=== PATIENT | female | born 1975 | race Caucasian/White ===

== ENCOUNTER 2017-04-08 08:40 | Emergency (ER) | payer OTHER ==
[~2017-04-08] VITALS: Ht 152.4 cm; Wt 65.3 kg
[~2017-04-08 08:40] MED LIST: /AUGM875TA OR; /LINE60TA PO; ACET500C; ALDARA; ANTIBIOTIC; ATIV0.5T OR; ATIV0.5T3 PO; AUGM875T27 PO; BACT800T OR; BUDE150T PO; BUPR50TA PO; CELE20TA; CELE40TA PO; CIPR500T19; CIPR500T4; CITA40TA PO; CRES40TA PO; CRES5TAB; FERR325T3 PO; FLUC10TA; GLUC1000; IBUP80TA PO; INSULANT; INSULIN PUMP; INSULIN PUMP SQ; NOVOLOG100 MG/ML; OSEL75CA PO; PERC5TAB8 OR; PERCOCET PO; SYNT100T PO; SYNT125T; SYNT125T PO; TYLE325T5 PO; VIT250TA PO
[2017-04-08] MEDS ORDERED: NORCO, ANEXSIA 5/325MG TABLET (HYDROcodone/ACETAMINOPHEN) PO ONE (10:00)
[2017-04-08] MEDS ORDERED: ADACEL/BOOSTRIX VACCINE (DIPHTH/PERTUSS/ACELL/TETANUS)0.5ML SYR (90715) IM ONE (10:00)
--- NOTE | 2017-04-08 10:09 | REP ---
CT Head without contrast HISTORY: Trauma COMPARISON: None There is no intraparenchymal hemorrhage, acute infarct, mass or midline shift. The ventricular system is normal in appearance. There is no extra cerebral collection. There is no fracture. The visualized sinuses are clear. IMPRESSION: There is no intracranial lesion. Signed by Ruy Ray MD 04/08/2017 10:00 A
[2017-04-08] MEDS ORDERED: REGL10TA6 PO (10:40)
[2017-04-08] MEDS ORDERED: NORCOTAB PO (10:44)
[2017-04-08 10:59] VITALS: BP 138/82
== END 2017-04-08 11:02 | disposition home or self-care (01) ==
LOC: M ED 09:52
DX: S00.83XA Contusion of other part of head, initial encounter (principal); S06.0X0A Concussion without loss of consciousness, initial encounter; W19.XXXA Unspecified fall, initial encounter; Y92.89 Other specified places as the place of occurrence of the external cause; Y93.89 Activity, other specified; Y99.8 Other external cause status; E11.649 Type 2 diabetes mellitus with hypoglycemia without coma; Z79.899 Other long term (current) drug therapy; Z79.4 Long term (current) use of insulin

== ENCOUNTER 2017-04-30 11:00 | Inpatient (IN) | payer OTHER ==
[~2017-04-30] VITALS: Ht 152.4 cm; Wt 70.2 kg
[~2017-04-30 11:00] MED LIST changes: +NORCOTAB PO; +REGL10TA6 PO
[2017-04-30] MEDS ORDERED: NS 1,000 ML IV ONE (12:30)
[2017-04-30] MEDS: NS 1,000 ML IV SCH ×2 (13:00→19:25)
[2017-04-30] MEDS ORDERED: NAPROXEN 250 MG TAB PO ONE (13:15)
[2017-04-30] MEDS ORDERED: MORPHINE 2 MG/ML 1ML SYRINGE IV ONE (13:15)
[2017-04-30 14:12] LABS: VENOUS BASE EXCESS -26.6 (-2.0-2.0); VENOUS O2 SATURATION 97.8 % (60.0-80.0); VENOUS PARTIAL PRESSURE CO2 21.6 mmHg (38.0-50.0); VENOUS PARTIAL PRESSURE O2 223.5 mmHg (30.0-50.0); VENOUS STANDARD HCO3 6.9 MEQ/L; VENOUS TOTAL CO2 5.2 MEQ/L (24.0-28.0)
[2017-04-30 14:33] LABS: BASO # 0.1 K/mm3 (0.0-0.2); BASO % 0.3 % (0.0-1.0); EOS % 0.1 % (0.0-3.0); LARGE UNSTAINED CELL # 0.2 K/mm3 (0.0-0.4); LARGE UNSTAINED CELL % 0.8 % (0.0-4.0); LYMPH # 0.9 K/mm3 (1.5-4.5); LYMPH % 3.8 % (24.0-44.0); MEAN CORPUSCULAR HEMOGLOBIN 32.2 pg (27.0-33.0); MEAN CORPUSCULAR HGB CONC 31.8 g/dl (32.0-36.5); MEAN CORPUSCULAR VOLUME 101.5 fl (80.0-96.0); MONO # 0.9 K/mm3 (0.0-0.8); MONO % 4.1 % (0.0-5.0); NEUTROPHILS # 20.9 K/mm3 (1.8-7.7); PLATELET COUNT, AUTOMATED 522 k/mm3 (150-450); RED CELL DISTRIBUTION WIDTH 13.4 % (11.5-14.5)
[2017-04-30 14:57] LABS: ALBUMIN 4.6 GM/DL (3.2-5.2); ALBUMIN/GLOBULIN RATIO 1.24 (1.00-1.93); ALKALINE PHOSPHATASE 144 U/L (45-117); ALT/SGPT 36 U/L (12-78); ANION GAP 26 MEQ/L (8-16); AST/SGOT 28 U/L (15-37); BILIRUBIN,DIRECT 0.1 MG/DL (0.0-0.2); BILIRUBIN,TOTAL 0.5 MG/DL (0.2-1.0); BLOOD UREA NITROGEN 20 MG/DL (7-18); CALCIUM LEVEL 9.1 MG/DL (8.5-10.1); CARBON DIOXIDE LEVEL 5 MEQ/L (21-32); CHLORIDE LEVEL 99 MEQ/L (98-107); CREATININE FOR GFR 1.06 MG/DL (0.55-1.02); GLOMERULAR FILTRATION RATE > 60.0 (>58); SODIUM LEVEL 130 MEQ/L (136-145); TOTAL PROTEIN 8.3 GM/DL (6.4-8.2)
[2017-04-30] MEDS ORDERED: SODIUM CHLORIDE 0.9% 1000 ML IV ONE ×2 (15:00→17:00)
[2017-04-30 15:09] LABS: GLUCOSE, FASTING 465 MG/DL (70-105)
[2017-04-30 15:10] LABS: POTASSIUM SERUM 6.2 MEQ/L (3.5-5.1)
[2017-04-30] MEDS ORDERED: HumaLOG INSULIN (NovoLOG) PER UNIT SC STA (15:10)
[2017-04-30 15:40] LABS: VENOUS BASE EXCESS -27.7 (-2.0-2.0); VENOUS O2 SATURATION 91.3 % (60.0-80.0); VENOUS PARTIAL PRESSURE CO2 16.6 mmHg (38.0-50.0); VENOUS PARTIAL PRESSURE O2 83.8 mmHg (30.0-50.0); VENOUS STANDARD HCO3 5.2 MEQ/L; VENOUS TOTAL CO2 3.8 MEQ/L (24.0-28.0)
[2017-04-30] MEDS ORDERED: LEVO125T4 PO (15:51)
[2017-04-30] MEDS ORDERED: BUPR150T3 PO (15:51)
[2017-04-30] MEDS ORDERED: VENL75CA2 PO (15:51)
[2017-04-30] MEDS ORDERED: TYLE325T5 PO (15:51)
[2017-04-30] MEDS ORDERED: IBUP80TA PO (15:53)
[2017-04-30] MEDS ORDERED: INSUHUMDS SC (15:54)
[2017-04-30] MEDS ORDERED: BUPR300T34 PO (15:58)
[2017-04-30] MEDS ORDERED: PATIENT COMMENT (15:59)
[2017-04-30] MEDS ORDERED: INSULIN HUMAN REGULAR 100 UNITS in NS 99 ML IV SCH ×2 (16:00→18:18)
[2017-04-30] MEDS ORDERED: INSULIN IV RATE CHANGE DOCUMENTATION ML/HR XX SCH (16:00)
[2017-04-30] MEDS ORDERED: BISACODYL 5 MG TAB PO PRN (16:15)
[2017-04-30] MEDS ORDERED: CALCIUM GLUCONATE 1,000 MG in D5W MINI-BAG PLUS 100 ML IV ONE (16:15)
[2017-04-30] MEDS ORDERED: ONDANSETRON 4MG/2ML VIAL (J2405) IV PRN (16:15)
[2017-04-30 16:53] LABS: BLOOD UREA NITROGEN 16 MG/DL (7-18); CARBON DIOXIDE LEVEL 5 MEQ/L (21-32); CHLORIDE LEVEL 115 MEQ/L (98-107); CREATININE FOR GFR 0.67 MG/DL (0.55-1.02); GLOMERULAR FILTRATION RATE > 60.0 (>58); GLUCOSE, FASTING 353 MG/DL (70-105)
[2017-04-30 17:03] LABS: ANION GAP 19 MEQ/L (8-16)
[2017-04-30 17:05] LABS: POTASSIUM SERUM 4.2 MEQ/L (3.5-5.1); SODIUM LEVEL 139 MEQ/L (136-145)
[2017-04-30 17:07] LABS: CALCIUM LEVEL 5.6 MG/DL (8.5-10.1)
[2017-04-30 17:18] LABS: MAGNESIUM LEVEL 1.5 MG/DL (1.8-2.4)
[2017-04-30] MEDS ORDERED: MAG SULF 1GM/100ML (MAG RUN) 1 GM in APPROPRIATE DILUENT 1 EA IV ONE (18:00)
[2017-04-30] MEDS: INSULIN IV RATE CHANGE DOCUMENTATION ML/HR XX SCH ×5 (19:00→23:01)
[2017-04-30 19:12] VITALS: BP 125/68
[2017-04-30 20:00] VITALS: BP 132/72
[2017-04-30 21:29] LABS: ANION GAP 17 MEQ/L (8-16); BLOOD UREA NITROGEN 19 MG/DL (7-18); CALCIUM LEVEL 8.1 MG/DL (8.5-10.1); CARBON DIOXIDE LEVEL 9 MEQ/L (21-32); CHLORIDE LEVEL 112 MEQ/L (98-107); CREATININE FOR GFR 0.89 MG/DL (0.55-1.02); GLOMERULAR FILTRATION RATE > 60.0 (>58); GLUCOSE, FASTING 181 MG/DL (70-105); POTASSIUM SERUM 4.7 MEQ/L (3.5-5.1); SODIUM LEVEL 138 MEQ/L (136-145)
--- NOTE | 2017-04-30 21:35 | HPE ---
DATE OF ADMISSION: 04/30/2017 PRIMARY CARE PHYSICIAN: Dr. Weems CHIEF COMPLAINT: Diabetic ketoacidosis (DKA). HISTORY OF PRESENT ILLNESS: Ms. Kirkpatrick is a 41-year-old with multiple past medical history who presented to emergency room (ER) due to experiencing elevated glucose level. Patient expressed that yesterday at work she checked her glucose level, and it was above 600. Patient expressed that she was feeling tired yesterday and day before. She is on insulin pump, and she found out that her insulin pump is not properly connected. She is estimating that it was for the past 2 days, and she did not receive any insulin for the past 2 days due to insulin pump not being appropriately connected. Patient denies fevers, chills, or night sweats; however, patient expressed that last night when she went home, she was very thirsty, and she drank a large amount of water. Also patient has increased urination since last night. According to the boyfriend, for last night's dinner the patient had a [employer] burger with crystalline fluid. Patient's boyfriend expressed that this morning he went to see his doctor; however, when he came back he noticed that patient was confused and hallucinating. Patient's daughter also was visiting patient this morning and had noticed that patient was more confused. Patient also, when she woke up after shower, she noticed breast tenderness, mostly on the nipples bilaterally. Patient has a history of mastitis on the left breast with methicillin-resistant Staphylococcus aureus (MRSA) in 2011, who was treated medically. Patient denies sick contact. Patient denies acute vision or hearing changes; however, patient has headache this morning when she woke up. Patient denies history of syncope or seizure-type activities. Patient denies palpitations, racing or skipping heartbeat. Patient also denies abdominal pain, diarrhea, or constipation. Patient expressed she had a urinary fungal infection multiple times. ALLERGIES: No known drug allergies. HOME MEDICATIONS: - Tylenol 650 mg by mouth every 4 hour as needed pain - bupropion 300 mg by mouth daily - ibuprofen 800 mg by mouth every 8 hours as needed pain - insulin pump with Humalog - Synthroid 125 mcg by mouth daily - venlafaxine HCL ER 75 mg by mouth daily PAST MEDICAL HISTORY: 1. Mastitis of the left breast with MRSA. 2. Iron deficiency. 3. Diabetes mellitus type 1. 4. Hypothyroidism. 5. Multiple urinary fungal infections. PAST SURGICAL HISTORY: 1. Gastric bypass. 2. Hysterectomy in 1996. 3. section. 4. Dilatation and curettage. FAMILY HISTORY: At this time patient lives with her boyfriend. Patient has three children. Two of her children have autism. Patient denies history of smoking or using tobacco or illicit drug use. Patient drinks alcohol occasionally. Patient has not traveled outside of the [place]. Patient has two cats, one dog, and one rabbit. FAMILY HISTORY: Patient has one brother who is healthy. Patient's father had heart disease and has a stent at age 64. Patient's mother has type 2 diabetes. REVIEW OF SYSTEMS: GENERAL: Patient denies fever; however, patient feels warm. Patient denies chills or night sweats. Patient denies acute weight loss or weight gain. HEENT: Patient has headache and lightheadedness; however, patient denies acute vision or hearing changes. Patient also denies problem with chewing food or sinusitis. NECK: Patient denies lumps, bumps, or decreased range of motion of her neck. HEART: Patient denies palpitations, racing or skipping heartbeat, chest pain. LUNGS: Patient denies shortness of breath, coughing, or wheezing. ABDOMEN: Patient denies abdominal pain, nausea, vomiting, diarrhea, constipation , melena, hematochezia, or hemoptysis. CHEST: Patient expressed that she has been having breast tenderness, mostly nipple area bilaterally since this morning after patient took a shower. NEUROLOGIC: Patient denies history of transient ischemic attacks (TIAs), severe seizure-type activities. PHYSICAL EXAMINATION: Temperature 98.8, pulse 112, respiratory rate 18, blood pressure 120/59, pulse oximetry 100 on room air. GENERAL APPEARANCE: Patient was lying in bed in no acute distress. Patient was awake, alert, and oriented to time, place, and person. Patient was sleepy. HEENT: Normocephalic, atraumatic. Pupils were equal and reactive to light. Oral mucosa is moist. NECK: Soft, supple. No lymphadenopathy. No thyromegaly. No jugular venous distention (JVD). HEART: Regular rate and rhythm. Normal S1, S2. ABDOMEN: Soft, nontender. Positive bowel sounds in all quadrants. LUNGS: Clear breath sounds bilaterally. Good air movement. BREASTS: Patient has tenderness to palpation of the nipples bilaterally; however , patient does not have tenderness to palpation of the breast tissue bilaterally. EXTREMITIES: No lower extremity edema. +2 pulses in both lower extremities. Feet are warm. Normal range of motion, both upper and lower extremities. LABORATORY DATA: White blood cells 23, red blood cells 4.56, hemoglobin 14.8, hematocrit 46.6, MCV 101.5, MCH 32.2, MCHC 31.8, RDW 13.4, platelet count 522, neutrophil percentage 91, lymphocyte percentage 3.8, monocyte percentage 4.1, eosinophil percentage 4.1, basophil percentage 0.3, leukocyte percentage 0.8. VBG bicarbonate standard is 6.9, VBG pH 6.941, VBG pCO2 of 21.6, VBG pO2 of 223.5, VBG hCO3 of 4.5, VBG total CO2 of 5.2, VBG oxygen saturation 97.8, VBG base excess -26.6. Sodium 130, potassium 6.2, chloride 99, carbon dioxide 5, anion gap 26, BUN 20, creatinine 1.06, glomerular filtration rate more than 60, fasting glucose 465, estimate mean plasma glucose 240, hemoglobin A1c 10, calcium 9.1, magnesium 1.5. Total bilirubin 0.5, direct bilirubin 0.1, AST 28, ALT 36, alkaline phosphatase 144, total protein 8.3, albumin 4.6. UA: Urine color yellow. Urine appearance hazy. Urine pH 5, urine specific gravity 1.021, urine protein 2+, urine glucose 3+, urine ketone 2+, urine blood 2+, urine nitrite negative, urine bilirubin negative, urine urobilinogen 0.2, urine leukocyte esterase trace, urine white blood cells 3, urine red blood cells 2, urine hyalin casts 0, urine bacterial 1+, urine squamous epithelial cells 2. H-hydroxybutyrate more than 46. Blood culture is pending. ASSESSMENT AND PLAN: 1. Diabetic ketoacidosis (DKA). At this time patient is started on insulin drip with the normal saline. Also patient has received 2-liter bolus normal saline. Patient is nothing by mouth. We will check the basic metabolic panel every 4 hours. Also we have ordered blood culture. Urinalysis (UA) raised the possibility for urinary tract infection (UTI); therefore, I have ordered urine culture. Result is pending at this time. EKG indicated sinus tachycardia; however, no new pathology was noticed. Also we will continue monitoring fingersticks every 1 hour. 2. Hyperkalemia. This is possibly secondary to DKA. Patient has been started on insulin, and EKG did not show any new pathology indicative of hyperkalemia; however, I administered 1 gram of IV calcium gluconate. 3. Breast tenderness bilaterally. This could be secondary to a skin infection; also she has a history of mastitis and methicillin-resistant Staphylococcus aureus (MRSA), I have started patient on Teflaro 400 mg IV every 12 hours. 4. Leukocytosis. This could be secondary to infection. We have ordered blood culture, which is pending at this time. Also urine culture is pending. Patient has been started on Teflaro. Patient has a history of MRSA; however, at this time patient is afebrile. 5. Elevated creatinine level. This is possibly due to stress secondary to dehydration secondary to DKA. No medication is required at this time. We will continue patient on IV fluid. 6. Elevated alkaline phosphatase. Since 2008, patient had the elevated alkaline phosphatase; however, no imaging was ordered; therefore, I have ordered gallbladder ultrasound, and the result is pending at this time. Patient has a normal level of AST and ALT. We will continue monitoring alkaline phosphatase level. Also, patient is asymptomatic and denies any abdominal pain. 7. Hypothyroidism. Patient is on Synthroid 125 mcg by mouth daily. 8. Hypomagnesemia. We have administered one magnesium run. 9. History of depression and anxiety. Patient is on Effexor XR as well as bupropion 300 mg by mouth daily. 10. DVT prophylaxis. Patient is on Lovenox. My preceptor for this patient encounter was Dr. Georgia Acosta. The preceptor was physically present in the building during the encounter and was fully available as needed. All aspects of the patient interview, examination, medical decision making process, and medical care plan development were reviewed and approved by the preceptor. The preceptor is aware and concurs with the plan as stated in the body of this note and will attest to such by his/her co-signature. JAYDON
[2017-04-30 22:00] VITALS: BP 109/54
[2017-04-30] MEDS: D5W/0.45% SODIUM CHLORIDE 1,000 ML IV SCH (22:28)
[2017-04-30] MEDS: CEFTAROLINE FOSAMIL 400 MG in D5W MINI-BAG PLUS 50 ML IV SCH (22:54)
[2017-05-01] VITALS (9 sets, daily range): BP systolic 90–129; BP diastolic 54–83
[2017-05-01] MEDS: PERCOCET 5MG/325MG TAB PO PRN ×2 (00:16→07:53)
[2017-05-01 01:27] LABS: ANION GAP 16 MEQ/L (8-16); BLOOD UREA NITROGEN 17 MG/DL (7-18); CARBON DIOXIDE LEVEL 8 MEQ/L (21-32); CHLORIDE LEVEL 112 MEQ/L (98-107); CREATININE FOR GFR 0.92 MG/DL (0.55-1.02); GLOMERULAR FILTRATION RATE > 60.0 (>58); GLUCOSE, FASTING 231 MG/DL (70-105); POTASSIUM SERUM 4.5 MEQ/L (3.5-5.1); SODIUM LEVEL 136 MEQ/L (136-145)
[2017-05-01] MEDS: D5W/0.45% SODIUM CHLORIDE 1,000 ML IV SCH (04:30)
[2017-05-01 04:55] LABS: BASO % 0.1 % (0.0-1.0); EOS # 0.1 K/mm3 (0.0-0.50); EOS % 0.9 % (0.0-3.0); LARGE UNSTAINED CELL # 0.1 K/mm3 (0.0-0.4); LYMPH # 1.5 K/mm3 (1.5-4.5); LYMPH % 11.6 % (24.0-44.0); MEAN CORPUSCULAR HGB CONC 33.4 g/dl (32.0-36.5); MONO # 0.6 K/mm3 (0.0-0.8); MONO % 5.2 % (0.0-5.0); NEUTROPHILS # 9.9 K/mm3 (1.8-7.7); NEUTROPHILS % 81.2 % (36.0-66.0); RED CELL DISTRIBUTION WIDTH 14.1 % (11.5-14.5); WHITE BLOOD COUNT 12.1 K/mm3 (4.0-10.0)
[2017-05-01 05:20] LABS: MEAN CORPUSCULAR VOLUME 95.6 fl (80.0-96.0)
[2017-05-01 05:21] LABS: ALBUMIN 3.3 GM/DL (3.2-5.2); ALBUMIN/GLOBULIN RATIO 1.03 (1.00-1.93); ALKALINE PHOSPHATASE 102 U/L (45-117); ALT/SGPT 26 U/L (12-78); ANION GAP 11 MEQ/L (8-16); AST/SGOT 10 U/L (15-37); BILIRUBIN,TOTAL 0.4 MG/DL (0.2-1.0); BLOOD UREA NITROGEN 15 MG/DL (7-18); CALCIUM LEVEL 7.9 MG/DL (8.5-10.1); CARBON DIOXIDE LEVEL 13 MEQ/L (21-32); CHLORIDE LEVEL 112 MEQ/L (98-107); CREATININE FOR GFR 0.87 MG/DL (0.55-1.02); GLOMERULAR FILTRATION RATE > 60.0 (>58); GLUCOSE, FASTING 216 MG/DL (70-105); PLATELET COUNT, AUTOMATED 292 k/mm3 (150-450); POTASSIUM SERUM 4.3 MEQ/L (3.5-5.1); SODIUM LEVEL 136 MEQ/L (136-145); TOTAL PROTEIN 6.5 GM/DL (6.4-8.2)
[2017-05-01] MEDS: LEVOTHYROXINE 125MCG TABLET (0.125MG) PO SCH (05:58)
[2017-05-01 06:52] LABS: PHOSPHORUS LEVEL 1.9 MG/DL (2.5-4.9)
--- NOTE | 2017-05-01 07:45 | REP ---
Clinical: Elevated liver function tests and intermittent abdominal pain. Technique: Harris scale ultrasound using curved array transducer. Findings: The liver and pancreas are normal in contour, size, and echogenicity without focal hepatic or pancreatic lesions identified. The gallbladder is normal without gallstones, wall thickening or pericholecystic fluid. No biliary ductal dilatation is appreciated, and the common bile duct measures 3.1 mm diameter. The right kidney is normal in reniform shape without hydronephrosis and measures 12.0 x 4.2 x 5.3 cm. No ascites. Visualized portions of the abdominal aorta normal. Impression: Normal right upper quadrant and gallbladder abdominal ultrasound. Signed by Rico Menon MD 05/01/2017 07:37 A
[2017-05-01] MEDS: VENLAFAXINE **XR** 75MG CAPSULE PO SCH (07:52)
[2017-05-01] MEDS: buPROPion **XL** TABLET 150MG (WELLBUTRIN XL) PO SCH (07:53)
[2017-05-01] MEDS: ENOXAPARIN 30 MG/0.3 ML SYR (J1650) SC SCH (07:54)
[2017-05-01] MEDS: CEFTAROLINE FOSAMIL 400 MG in D5W MINI-BAG PLUS 50 ML IV SCH ×2 (07:54→19:58)
[2017-05-01 09:20] LABS: ANION GAP 9 MEQ/L (8-16); BLOOD UREA NITROGEN 13 MG/DL (7-18); CALCIUM LEVEL 7.6 MG/DL (8.5-10.1); CARBON DIOXIDE LEVEL 16 MEQ/L (21-32); CHLORIDE LEVEL 112 MEQ/L (98-107); CREATININE FOR GFR 0.84 MG/DL (0.55-1.02); GLOMERULAR FILTRATION RATE > 60.0 (>58); GLUCOSE, FASTING 228 MG/DL (70-105); POTASSIUM SERUM 3.9 MEQ/L (3.5-5.1); SODIUM LEVEL 137 MEQ/L (136-145)
[2017-05-01] MEDS: LEVEMIR (INSULIN DETEMIR) 1 UNITS/0.01ML SC SCH (09:23)
[2017-05-01] MEDS ORDERED: GLUCAGON FOR INJ 1 MG VIAL (J1610) SC PRN (11:45)
[2017-05-01] MEDS ORDERED: DEXTROSE 50% 50 ML SYRINGE IV PRN (11:45)
[2017-05-01] MEDS ORDERED: GLUCOSE 4 GM CHEW TABLET PO PRN (11:45)
[2017-05-01] MEDS: HumaLOG INSULIN (NovoLOG) PER UNIT SC SCH ×2 (12:29→17:56)
--- NOTE | 2017-05-01 15:31 | IPN ---
DATE: 05/01/2017 SUBJECTIVE: Ms. Kirkpatrick is a 41-year-old female who was seen and examined at the bedside. Patient denies chest pain, orthopnea, or paroxysmal nocturnal dyspnea (PND). Patient also denies abdominal pain, racing or skipping heartbeat, nausea, vomiting. Patient also expressed that she was asymptomatic last night. Patient had multiple episodes of urination without hematuria or dysuria. Patient denies fevers, chills, or night sweats. OBJECTIVE: VITAL SIGNS: Temperature 98.8, pulse 96, respiratory rate 16, blood pressure 103/55, pulse oximetry 96% on room air. GENERAL APPEARANCE: Patient was lying in bed, in no acute distress. Patient was awake, alert, and oriented to time, place, and person. HEENT: Normocephalic, atraumatic. Pupils are equal and reactive to light. Oral mucosa is moist. NECK: Soft, supple. No lymphadenopathy. No thyromegaly. No jugular venous distention (JVD). HEART: Regular rate and rhythm, normal S1, S2. ABDOMEN: Soft, nontender. Positive bowel sounds in all quadrants. BREAST EXAM: No lumps or bumps were noticed, also no erythema or discharge was appreciated. Palpation of the nipples and the breast does not cause any tenderness or pain. EXTREMITIES: No lower extremity edema. +2 pulses in both lower extremities. ASSESSMENT AND PLAN: 1. Diabetic ketoacidosis (DKA). At this time, patient's anion gap is closed. At this time, I have started patient on Levemir 18 units daily. However, we will run the insulin drip for one more hour and then we will stop the insulin drip. Also, we have started patient on consistent carbohydrate diet. This morning, we have checked the cardiac markers which were negative, also lipase was negative. At this time, we will continue patient on sliding scale. Also, blood culture is pending at this time as well as urine culture. 2. Hyperkalemia. This was possibly secondary to diabetic ketoacidosis (DKA). However, at this time patient's potassium level is in normal range. 3. Breast tenderness bilaterally. At this time, patient is asymptomatic. We will continue patient on Teflaro 400 mg IV every 12 hours since patient has a history of methicillin-resistant Staphylococcus aureus (MRSA). I have ordered a mammogram bilaterally, however we will hold it at this time. 4. Leukocytosis. This was possibly secondary to infection. However, patient's white blood cells have decreased today. We will continue patient on Teflaro. Patient's urine culture and blood culture are pending at this time. 5. Elevated creatinine level. This is possibly secondary to dehydration, however patient's creatinine level is back to normal range. We will continue renal function. 6. Elevated alkaline phosphatase. Today patient's alkaline phosphatase came back to normal range. This could be secondary to stress. At this time, patient is stable. Also, I have performed a gallbladder ultrasound which was negative for any pathology. 7. Hypothyroidism. Will continue patient on Synthroid. 8. Hypomagnesemia. Patient received one magnesium run yesterday. At this time, patient's magnesium level is in normal range. 9. History of depression and anxiety. Will continue patient on Effexor as well as bupropion. 10. Deep venous thrombosis (DVT) prophylaxis. Patient is on Lovenox. My preceptor for this patient encounter was Dr. Nandini Hale. The preceptor was physically present in the building during the encounter and was fully available. As needed, all aspects of the patient interview, examination, medical decision making process, and medical care plan development were reviewed and approved by the preceptor. The preceptor is aware and concurs with the plan as stated in the body of this note and will attest to such by his cosignature.
[2017-05-01] MEDS ORDERED: ENTER DRUG NAME HERE (PATIENT'S OWN MED) SC STA (19:50)
[2017-05-01] MEDS: ACETAMINOPHEN TAB 650MG DOSE (2X325MG) PO PRN ×2 (19:58→23:54)
[2017-05-01] MEDS ORDERED: INSULIN PUMP (PATIENT'S OWN MED) SC SCH (20:00)
[2017-05-01] MEDS ORDERED: HumaLOG INSULIN (NovoLOG) PER UNIT SC SCH (21:00)
[2017-05-02 05:40] VITALS: BP 124/83
[2017-05-02] MEDS ORDERED: IBUPROFEN 200 MG TAB PO ONE (06:00)
[2017-05-02] MEDS: LEVOTHYROXINE 125MCG TABLET (0.125MG) PO SCH (06:07)
[2017-05-02 06:10] LABS: BASO % 0.5 % (0.0-1.0); EOS # 0.1 K/mm3 (0.0-0.50); EOS % 1.2 % (0.0-3.0); LARGE UNSTAINED CELL # 0.1 K/mm3 (0.0-0.4); LARGE UNSTAINED CELL % 2.6 % (0.0-4.0); LYMPH # 1.7 K/mm3 (1.5-4.5); LYMPH % 32.1 % (24.0-44.0); MEAN CORPUSCULAR HEMOGLOBIN 31.5 pg (27.0-33.0); MEAN CORPUSCULAR HGB CONC 34.2 g/dl (32.0-36.5); MEAN CORPUSCULAR VOLUME 92.1 fl (80.0-96.0); MONO # 0.3 K/mm3 (0.0-0.8); MONO % 6.5 % (0.0-5.0); NEUTROPHILS # 2.7 K/mm3 (1.8-7.7); NEUTROPHILS % 57.1 % (36.0-66.0); PLATELET COUNT, AUTOMATED 261 k/mm3 (150-450); WHITE BLOOD COUNT 4.8 K/mm3 (4.0-10.0)
--- NOTE | 2017-05-02 07:18 | ECGEPIP ---
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
[2017-05-02 07:20] LABS: ALBUMIN/GLOBULIN RATIO 0.94 (1.00-1.93); ALKALINE PHOSPHATASE 90 U/L (45-117); ALT/SGPT 21 U/L (12-78); ANION GAP 8 MEQ/L (8-16); AST/SGOT 8 U/L (15-37); BILIRUBIN,TOTAL 0.3 MG/DL (0.2-1.0); BLOOD UREA NITROGEN 11 MG/DL (7-18); CALCIUM LEVEL 8.6 MG/DL (8.5-10.1); CARBON DIOXIDE LEVEL 22 MEQ/L (21-32); CHLORIDE LEVEL 113 MEQ/L (98-107); CREATININE FOR GFR 0.54 MG/DL (0.55-1.02); GLOMERULAR FILTRATION RATE > 60.0 (>58); GLUCOSE, FASTING 130 MG/DL (70-105); MAGNESIUM LEVEL 2.3 MG/DL (1.8-2.4); POTASSIUM SERUM 3.5 MEQ/L (3.5-5.1); SODIUM LEVEL 143 MEQ/L (136-145); TOTAL PROTEIN 6.2 GM/DL (6.4-8.2)
[2017-05-02] MEDS: LEVEMIR (INSULIN DETEMIR) 1 UNITS/0.01ML SC SCH (08:28)
[2017-05-02] MEDS: CEFTAROLINE FOSAMIL 400 MG in D5W MINI-BAG PLUS 50 ML IV SCH (08:28)
[2017-05-02] MEDS: buPROPion **XL** TABLET 150MG (WELLBUTRIN XL) PO SCH (08:29)
[2017-05-02] MEDS: ENOXAPARIN 30 MG/0.3 ML SYR (J1650) SC SCH (08:29)
[2017-05-02] MEDS: VENLAFAXINE **XR** 75MG CAPSULE PO SCH (08:29)
[2017-05-02] MEDS ORDERED: EXCEDRIN MIGRAINE TABLET PO PRN (08:30)
--- NOTE | 2017-05-02 14:25 | DSES ---
DATE OF ADMISSION: 04/30/2017 DATE OF DISCHARGE: 05/02/2017 DISCHARGE DIAGNOSIS: Diabetic ketoacidosis. SECONDARY DIAGNOSES: Medication non-adherence. Hyperkalemia. Acute kidney injury. Hypothyroidism. Hypomagnesemia. Depression and anxiety. HOSPITAL COURSE: The patient is a 41-year-old female who is type 1 diabetic on insulin pump who stated over the last days, she felt her pump was not working correctly. It was kinked and that she was not receiving her insulin, although, she was not checking her blood sugar regularly. When she began to feel weak and not herself, she did check her blood sugars that were greater than 600 which prompted her to present to the emergency room. She was found to be in diabetic ketoacidosis (DKA) and was admitted to the medical intensive care unit where she was started on insulin drip as per the protocol. Her gap did close. She was weaned back to subcutaneous insulin and then subsequently back to her pump, which demonstrated good functional status. Her symptoms did completely resolve. It was thought that it was secondary to medication non-adherence with pump malfunctioning. Although she ws empirically started on antibiotics at the time of admission, her cultures remained negative and there was no evidence for acute infection. Her symptomatology did resolve completely At this time, she is medically deemed to be stable for discharge home. Subjectively, the patient reports she feels great. She wants to go home. She is eating her regular diet and has no complaints. OBJECTIVE: VITAL SIGNS: Temperature 98.4, pulse 87, respiratory rate 17, blood pressure 124/83, oxygen saturation 97% in room air. GENERAL: She is obese middle-aged female lying flat in bed in no distress. HEENT: Cranial nerves II through XII are grossly intact. She has moist mucous membranes. CARDIOVASCULAR: S1, S2 regular. RESPIRATORY: Clear. ABDOMEN: Obese, nontender, nondistended. EXTREMITIES: No clubbing, cyanosis or edema. LABORATORY STUDIES: WBC 4.8, hemoglobin 12.0, hematocrit 35, platelet count 262. Chemistry panel: Sodium 143, potassium 3.5, chloride 111, bicarbonate 22, BUN 11, creatinine 0.5. ASSESSMENT/PLAN: This is a 41-year-old female with resolved DKA secondary to medication non-adherence. PROBLEMS: 1. Diabetic ketoacidosis: Resolved secondary to medication non-adherence. I did advise her to check her blood sugar more regularly and then she would notice if her pump was not functioning correctly sooner and be able to change her site. I did encourage her to followup with the [facility] where she has been seen previously for her diabetes. Her hemoglobin A1c was elevated at 10 suggesting suboptimal control and also likely related to her poor compliance. 2. Acute kidney injury related to dehydration improved with rehydration,=. 3. Hypothyroidism: She was continued on Synthroid. 4. Hypomagnesemia, repleted. 5. History of depression and anxiety. She was continued on Effexor and bupropion. DISPOSITION: The patient is being discharged home to the care of her family. She is back at her functional baseline and independent with her nativities of daily living, (ADL). Clinical status is resolved. She is to followup with her primary care physician in 7 days and the [facility] as soon as possible. Her activities are prior to admission. Her diet is consistent carbohydrate. She is to return to the emergency room if her symptoms worsen. DISCHARGE MEDICATIONS: - Tylenol 650 mg every 4 hours as needed for pain - bupropion 300 mg daily - ibuprofen 800 mg every 8 hours as needed for pain - Lispro subcutaneously through her pump - levothyroxine 125 mcg daily - venlafaxine 75 mg daily Greater than 30 minutes spent organizing disposition.
== END 2017-05-02 13:10 | disposition home or self-care (01) | DRG 813 ==
LOC: M ED 11:00 → M ED INP 17:17 → M ICU 18:41 → M MSPAV 05-01 21:03
PROVIDERS: ADMIT Hospitalist; ATTEND Internal Medicine
DX: T85.694A Other mechanical complication of insulin pump, initial encounter (principal); E10.10 Type 1 diabetes mellitus with ketoacidosis without coma; E83.42 Hypomagnesemia; E87.5 Hyperkalemia; D50.9 Iron deficiency anemia, unspecified; E03.9 Hypothyroidism, unspecified; D72.829 Elevated white blood cell count, unspecified; E86.0 Dehydration; N64.4 Mastodynia; F32.9 Major depressive disorder, single episode, unspecified; E66.9 Obesity, unspecified; F41.9 Anxiety disorder, unspecified; Z79.4 Long term (current) use of insulin; Z79.899 Other long term (current) drug therapy; Z87.440 Personal history of urinary (tract) infections; Z86.14 Personal history of Methicillin resistant Staphylococcus aureus infection; Z98.84 Bariatric surgery status; Z91.14 Patient's other noncompliance with medication regimen; Z68.30 Body mass index [BMI] 30.0-30.9, adult; Y84.8 Other medical procedures as the cause of abnormal reaction of the patient, or of later complication, without mention of misadventure at the time of the procedure

== ENCOUNTER 2018-03-26 08:36 | Emergency (ER) | payer BC, OTHER | END 2018-03-26 09:54 | disposition home or self-care (01) | LOC: M ED 08:36 | DX: S20.212A Contusion of left front wall of thorax, initial encounter (principal); S20.222A Contusion of left back wall of thorax, initial encounter; W01.0XXA Fall on same level from slipping, tripping and stumbling without subsequent striking against object, initial encounter; Y92.099 Unspecified place in other non-institutional residence as the place of occurrence of the external cause; Y93.9 Activity, unspecified; Y99.9 Unspecified external cause status; E11.9 Type 2 diabetes mellitus without complications; I10 Essential (primary) hypertension; E03.9 Hypothyroidism, unspecified; Z98.84 Bariatric surgery status; F32.9 Major depressive disorder, single episode, unspecified; Z79.4 Long term (current) use of insulin; Z79.899 Other long term (current) drug therapy; Z91.040 Latex allergy status | CPT/HCPCS: 71101 ==

== ENCOUNTER → 2018-08-04 | Outpatient (REF) | payer BC ==
[2018-08-06 08:08] LABS: LDL DIRECT 85 mg/dL (0-99)
== END ==
LOC: M LAB REF 17:39
DX: Z98.84 Bariatric surgery status (principal)
CPT/HCPCS: 83721

== ENCOUNTER → 2018-09-23 | Outpatient (REF) | payer BC | LOC: M LAB REF 13:01 | DX: R30.0 Dysuria (principal) | CPT/HCPCS: 87086 ==

== ENCOUNTER 2018-12-18 17:25 | Inpatient (IN) | payer BC ==
[~2018-12-18] VITALS: Ht 152.4 cm; Wt 76.4 kg
[~2018-12-18 17:25] MED LIST changes: +BUPR150T3 PO; +BUPR300T34 PO; +INSUHUMDS SC; +LEVO125T4 PO; +PATIENT COMMENT; +VENL75CA2 PO
[2018-12-18] MEDS: MORPHINE 4 MG/ML 1ML VIAL/SYRINGE (J2270) IV PRN ×2 (18:04→18:51)
[2018-12-18 18:06] LABS: BASO % 0.4 % (0.0-1.0); EOS % 0.3 % (0.0-3.0); HEMATOCRIT 33.9 % (36.0-47.0); LYMPH # 1.6 10^3/uL (1.5-4.5); LYMPH % 20.3 % (24.0-44.0); MEAN CORPUSCULAR HEMOGLOBIN 28.7 pg (27.0-33.0); MEAN CORPUSCULAR HGB CONC 32.4 g/dl (32.0-36.5); MEAN CORPUSCULAR VOLUME 88.5 fl (80.0-96.0); MONO # 0.5 10^3/uL (0.0-0.8); MONO % 6.8 % (0.0-5.0); NEUTROPHILS # 5.7 10^3/uL (1.8-7.7); NEUTROPHILS % 71.8 % (36.0-66.0); PLATELET COUNT, AUTOMATED 361 10^3/uL (150-450); RED BLOOD COUNT 3.83 10^6/uL (4.00-5.40); WHITE BLOOD COUNT 7.9 10^3/uL (4.0-10.0)
[2018-12-18] MEDS ORDERED: ONDANSETRON 4MG/2ML VIAL (J2405) As Ordered ONE ×2 (18:14→22:47)
[2018-12-18] MEDS ORDERED: NS 1,000 ML IV SCH (18:15)
[2018-12-18] MEDS ORDERED: ONDANSETRON 4MG/2ML VIAL (J2405) IV ONE (18:15)
[2018-12-18 18:32] LABS: ALBUMIN 3.8 GM/DL (3.2-5.2); ALT/SGPT 34 U/L (12-78); BILIRUBIN,DIRECT 0.1 MG/DL (0.0-0.2); BILIRUBIN,TOTAL 0.3 MG/DL (0.2-1.0); BLOOD UREA NITROGEN 20 MG/DL (7-18); CALCIUM LEVEL 9.1 MG/DL (8.5-10.1); CARBON DIOXIDE LEVEL 22 MEQ/L (21-32); CHLORIDE LEVEL 104 MEQ/L (98-107); CPK CREATINE PHOSPHOKINASE 72 U/L (26-192); CREATININE FOR GFR 0.56 MG/DL (0.55-1.30); GLOMERULAR FILTRATION RATE > 60.0 (>58); GLUCOSE, FASTING 135 MG/DL (70-100); LIPASE 137 U/L (73-393); MB/CK RELATIVE INDEX 1.67 (< OR =4); POTASSIUM SERUM 3.7 MEQ/L (3.5-5.1); SODIUM LEVEL 137 MEQ/L (136-145); TOTAL PROTEIN 7.2 GM/DL (6.4-8.2); TROPONIN I < 0.02 NG/ML (< 0.10)
[2018-12-18] MEDS ORDERED: ISOVUE-370 76% 100ML VIAL (Q9967) As Ordered ONE (18:36)
--- NOTE | 2018-12-18 20:22 | REPVR ---
EXAM: CT Abdomen and Pelvis With Contrast EXAM DATE/TIME: 12/18/2018 6:14 PM CLINICAL HISTORY: 43 years old, female; Pain; Abdominal pain; Periumbilical TECHNIQUE: Axial computed tomography images of the abdomen and pelvis with intravenous contrast. All CT scans at this facility use at least one of these dose optimization techniques: automated exposure control; mA and/or kV adjustment per patient size (includes targeted exams where dose is matched to clinical indication); or iterative reconstruction. Coronal and sagittal reformatted images were created and reviewed. CONTRAST: 100 ml of isovue 370 administered intravenously. COMPARISON: GALLBLADDER US 04/30/2017 8:01 PM FINDINGS: Lower thorax: Clear appearing lungs bases. ABDOMEN: Liver: Normal appearing liver. Gallbladder and bile ducts: Normal appearing gallbladder. Normal common bile duct. Pancreas: Normal appearing pancreas. Spleen: Normal spleen. Adrenals: Normal adrenal glands. Kidneys and ureters: Normal appearing kidneys. Stomach and bowel: There is severe dilatation of multiple loops of small bowel mid and lower abdomen. There is a loop of small bowel distended to 4.4 CM with fecal like material within. There are multiple loops of small bowel with secretions and air-fluid levels. There is a transition from distended bowel to nondistended bowel at the umbilicus. The ileum is decompressed. The left colon is completely decompressed. Dilated loops of small bowel demonstrate some thickening of bowel wall this is very suspicious for small bowel obstruction, a closed loop obstruction. Numerous surgical clips are identified in the left upper quadrant from gastric bypass surgery. There is also edematous changes of small bowel at the massively distended loops in the abdomen. Appendix: The appendix cannot be visualized. PELVIS: Bladder: Normal appearing urinary bladder. Reproductive: 3 CM cyst of the left ovary. Normal appearing uterus. ABDOMEN and PELVIS: Intraperitoneal space: There is no evidence of pneumoperitoneum. Bones/joints: There is severe narrowing of the L5-S1 disc space with moderate posterior osteophyte formation. Soft tissues: Unremarkable. Vasculature: There is opacification of the aorta. There is opacification of the SMA. Lymph nodes: Normal. No enlarged lymph nodes. IMPRESSION: Massive distention of multiple loops of small bowel in the mid and lower abdomen. Distention of small bowel to 4.4 CM with fecal like material. Secretions and air fluid level in distended small bowel in all areas suspicious for small bowel obstruction. Probable closed loop obstruction with the transition near the umbilicus. Electronically signed by: Jonah Mclain On 12/18/2018 20:22:18 PM
[2018-12-18] MEDS ORDERED: MORPHINE 4 MG/ML 1ML VIAL/SYRINGE (J2270) As Ordered ONE (20:27)
[2018-12-18] MEDS ORDERED: MORPHINE 4 MG/ML 1ML VIAL/SYRINGE (J2270) IV ONE (20:45)
[2018-12-18] MEDS ORDERED: ONDANSETRON 4MG/2ML VIAL (J2405) IV PRN ×2 (20:45→22:15)
[2018-12-18] MEDS ORDERED: MORPHINE 4 MG/ML 1ML VIAL/SYRINGE (J2270) IV PRN (20:45)
[2018-12-18] MEDS ORDERED: cefoTEtan DISODIUM 2 GM in D5W MINI-BAG PLUS 50 ML IV ONE (22:15)
[2018-12-18] MEDS ORDERED: METOCLOPRAMIDE INJ 10MG/2ML VIAL (J2765) IV PRN (22:15)
[2018-12-18] MEDS ORDERED: BUPIVACAINE HCL 0.25% 30 ML VIAL As Ordered ONE (22:27)
[2018-12-18] MEDS ORDERED: BUPIVACAINE/EPIN 0.25% 30 ML VIAL As Ordered ONE (22:27)
[2018-12-18] MEDS ORDERED: LIDOCAINE 2% INJ 100 MG/5 ML SDV (FOR ANES.) As Ordered ONE (22:47)
[2018-12-18] MEDS ORDERED: PROPOFOL 200 MG/20 ML VIAL As Ordered ONE (22:47)
[2018-12-18] MEDS ORDERED: dexameTHASONE 4 MG/ML 1ML VIAL (J1100) As Ordered ONE (22:47)
[2018-12-18] MEDS ORDERED: ROCURONIUM BROMIDE 50 MG/5 ML VIAL As Ordered ONE (22:47)
[2018-12-18] MEDS ORDERED: MIDAZOLAM INJ 5 MG/ML VIAL (J2250) As Ordered ONE (22:48)
[2018-12-18] MEDS ORDERED: fentaNYL 250 MCG/5 ML INJECTION (J3010) As Ordered ONE (22:48)
--- NOTE | 2018-12-18 23:01 | HPE ---
DATE OF ADMISSION: 12/18/2018 ADMISSION DIAGNOSIS: Small intestinal obstruction, possible closed loop obstruction. HISTORY OF PRESENT ILLNESS: The patient is a 43-year-old woman who presented to the emergency department at 5:25 in the evening of December 18, 2018 complaining of severe abdominal pain. The patient reports that she had some mild discomfort earlier in the day around lunchtime and had something to eat and shortly thereafter she developed severe mid abdominal pain. She developed some nausea and had some dry heaves. She is status post a laparoscopic Merry-en-Y gastric bypass back in August of 2015. On presentation to the emergency department, she was complaining of severe pain. This has persisted since admission. She underwent evaluation with some laboratory studies and then had a CT scan of the abdomen and pelvis. This shows a very prominent dilated loop of small bowel in the mid to lower abdomen, slightly more to the left, suggestive of a closed loop small bowel obstruction. Changes secondary to her gastric bypass were noted. I was consulted, and the patient is now being admitted for emergency surgery for her bowel obstruction. MEDICATIONS: Patient's normal medications include Wellbutrin XL 300 mg by mouth daily. She takes levothyroxine 125 mcg by mouth daily, and she is on an insulin pump with Humalog insulin. ALLERGIES: The patient's only reported allergy is to LATEX. SURGICAL HISTORY: The patient has had three sections. She has had a hysterectomy. She had her Merry-en-Y gastric bypass back in 2014. MEDICAL HISTORY: The patient has type 1 diabetes and is currently using an insulin pump. She has a history of hypertension and hypercholesterolemia, though she is not apparently on any medications for these at this time. She does have hypothyroidism. FAMILY HISTORY: Noncontributory. SOCIAL HISTORY: The patient is accompanied to the emergency department by significant other. She is a nonsmoker and reports a little alcohol intake. REVIEW OF SYSTEMS: The patient denies any chest pain or palpitations. She denies shortness of breath, cough or wheezing. She has no history of deep vein thrombosis (DVT) or pulmonary embolus. She denies any major bone or joint issues. Her endocrine issues are as noted. She has not complained of any chronic severe headaches, double visions, seizure or stroke. PHYSICAL EXAMINATION: Patient has previously been writhing on the stretcher and crying out. She has received some morphine in the emergency department. When I entered, she was lying on her right side and when she moved, seemed to be more uncomfortable. Skin is warm and dry. Sclerae are anicteric. I would say that her most recent vital signs show a pulse of 85, blood pressure of 145/85 and her room air oxygen saturation is 99%. Neck is supple without mass. Heart exam shows a regular rate and rhythm. The lungs are clear to auscultation. The abdomen is mildly obese. She has some scarring consistent with her prior surgery. She has a few bowel sounds in the upper abdomen and the lower abdomen is quieter. The abdomen is not particularly distended. The abdomen is soft throughout. She has some fairly mild direct tenderness in the mid abdomen beginning slightly above the umbilicus extending inferiorly into the suprapubic area. There is no tympany to percussion. Lower extremities: Show no edema and she has palpable dorsalis pedis pulses. She has palpable radial pulses bilaterally. Her laboratory studies from this evening show a white count of 8, hemoglobin of 11, hematocrit 34 and a platelet count of 361,000. Her differential count shows 72% neutrophils, 20% lymphocytes and 7% monocytes. Chemistry profile shows normal electrolytes with a BUN of 20, creatinine 0.56 and a glucose of 135. Her liver function tests are normal. Total protein is 7.2 and albumin of 3.8 and her lipase is 137. She had a troponin that was less than 0.02 and a CK-MB of 1 with a CK-MB relative index of 1.67. CT scan as noted in the history of present illness shows a single quite dilated fluid filled loop of small bowel in the mid abdomen, lower and slightly to the left the midline. She has postoperative changes from her prior surgery. IMPRESSION: Small intestinal obstruction secondary to adhesions or possible internal hernia. This may actually represent a closed loop obstruction as her pain does seem to be somewhat out of proportion to her findings. Other diagnoses include: - Type 1 diabetes mellitus. - Hypothyroidism. PLAN: The patient was counseled for urgent surgery. I have recommended laparoscopy with laparotomy as necessary to address her intestinal obstruction. Hopefully we can accomplish this laparoscopically. If necessary, a laparotomy will be performed. If the intestine is viable, then a lysis of adhesions may be all that is necessary, but it is possible that a bowel resection will be called for. She had an opportunity to ask questions. She will receive a dose of cefotetan preoperatively.
[2018-12-18] MEDS ORDERED: cefoTEtan INJ 2GM VIAL (S0074 PER 500MG) As Ordered ONE (23:31)
[2018-12-18] MEDS ORDERED: SUCCINYLCHOLINE 100 MG/5 ML SYRINGE (J0330) As Ordered ONE (23:47)
[2018-12-18] MEDS ORDERED: HYDROmorphone HCL 2 MG/ML 1ML VIAL (J1170) As Ordered ONE (23:48)
[2018-12-18] MEDS ORDERED: SUGAMMADEX SODIUM 500 MG/5 ML VIAL (BRIDION) As Ordered ONE (23:48)
[2018-12-19] VITALS (10 sets, daily range): BP systolic 110–142; BP diastolic 59–86
[2018-12-19] MEDS ORDERED: fentaNYL 100 MCG/2 ML INJECTION (J3010) IV PRN (01:00)
[2018-12-19] MEDS ORDERED: MEPERIDINE INJ 25 MG/ML VIAL (J2175) IV PRN (01:00)
[2018-12-19] MEDS ORDERED: MORPHINE 4 MG/ML 1ML VIAL/SYRINGE (J2270) IV PRN ×2 (01:00)
[2018-12-19] MEDS ORDERED: LR 1,000 ML IV SCH (01:00)
[2018-12-19] MEDS ORDERED: METOCLOPRAMIDE INJ 10MG/2ML VIAL (J2765) IV PRN (01:00)
[2018-12-19] MEDS ORDERED: PERCOCET 5MG/325MG TAB PO PRN (01:00)
[2018-12-19] MEDS ORDERED: ONDANSETRON 4MG/2ML VIAL (J2405) IV PRN (01:00)
[2018-12-19] MEDS ORDERED: NORCO, ANEXSIA 5/325MG TABLET (HYDROcodone/ACETAMINOPHEN) PO PRN (01:00)
[2018-12-19] MEDS: LR 1,000 ML IV SCH ×3 (01:20→14:01)
[2018-12-19] MEDS ORDERED: GLUCAGON FOR INJ 1 MG VIAL (J1610) SC PRN (02:45)
[2018-12-19] MEDS ORDERED: DEXTROSE 50% 50 ML SYRINGE IV PRN (02:45)
[2018-12-19] MEDS ORDERED: GLUCOSE 4 GM CHEW TABLET PO PRN (02:45)
[2018-12-19] MEDS ORDERED: PANTOPRAZOLE 40MG INJ (PROTONIX) (C9113) IV SCH (09:00)
[2018-12-19] MEDS: buPROPion **XL** TABLET 150MG (WELLBUTRIN XL) PO SCH (10:02)
[2018-12-19] MEDS: LEVOTHYROXINE 125MCG TABLET (0.125MG) PO SCH (10:03)
[2018-12-19 10:15] LABS: BASO % 0.1 % (0.0-1.0); HEMATOCRIT 32.8 % (36.0-47.0); HEMOGLOBIN 10.4 g/dl (12.0-15.5); LYMPH # 1.4 10^3/uL (1.5-4.5); LYMPH % 15.5 % (24.0-44.0); MEAN CORPUSCULAR HEMOGLOBIN 28.9 pg (27.0-33.0); MEAN CORPUSCULAR HGB CONC 31.7 g/dl (32.0-36.5); MEAN CORPUSCULAR VOLUME 91.1 fl (80.0-96.0); MONO # 0.5 10^3/uL (0.0-0.8); MONO % 5.8 % (0.0-5.0); NEUTROPHILS # 7.1 10^3/uL (1.8-7.7); NEUTROPHILS % 78.4 % (36.0-66.0); PLATELET COUNT, AUTOMATED 316 10^3/uL (150-450); WHITE BLOOD COUNT 9.1 10^3/uL (4.0-10.0)
[2018-12-19 10:30] LABS: ALT/SGPT 30 U/L (12-78); BILIRUBIN,TOTAL 0.3 MG/DL (0.2-1.0); BLOOD UREA NITROGEN 16 MG/DL (7-18); CALCIUM LEVEL 7.4 MG/DL (8.5-10.1); CARBON DIOXIDE LEVEL 24 MEQ/L (21-32); CHLORIDE LEVEL 107 MEQ/L (98-107); CREATININE FOR GFR 0.58 MG/DL (0.55-1.30); GLOMERULAR FILTRATION RATE > 60.0 (>58); GLUCOSE, FASTING 247 MG/DL (70-100); POTASSIUM SERUM 4.6 MEQ/L (3.5-5.1); SODIUM LEVEL 138 MEQ/L (136-145); TOTAL PROTEIN 5.9 GM/DL (6.4-8.2)
--- NOTE | 2018-12-19 13:04 | IPN ---
DATE OF SERVICE: 12/19/2018 HISTORY: The patient is now approximately 10-12 hours postoperative from a laparoscopic lysis of adhesions for a closed loop intestinal obstruction. She is doing very well and reports no significant discomfort at this time. His blood sugars have been fine, and she remains on her insulin pump. Vital sign show that she has been afebrile since surgery. Her pulse is in the 80s to low 90s. The blood pressure is good, and her room air oxygen (dictation cut off) She has had about 1850 in. PHYSICAL EXAMINATION: The patient is alert, oriented, and cooperative. She appears quite comfortable lying in the hospital bed. Skin: Is warm and dry. Heart: Shows a regular rate and rhythm. The lungs are clear. Her abdomen is nondistended. She has bowel sounds present, and the abdomen is soft and without any unexpected tenderness. She does not appear to be tender over the area where her ischemic bowel loop was. LABORATORY STUDIES: Show a white count of 9, hemoglobin 10, hematocrit 33, and a platelet count of 316,000. Differential count shows a 78% neutrophils, 16% lymphocytes, and 6% monocytes. Chemistry profile shows normal electrolytes with a BUN of 16, creatinine of 0.6, and a glucose of 247. IMPRESSION: The patient is doing extremely well now approaching 12 hours out from her surgery. She reports some flatus but has not yet had a bowel movement. She denies any nausea. PLAN: The patient will be started on clear liquids. Her sequential stockings will be discontinued to encourage ambulation. I will decrease her IV to 50 mL/h, and when she tolerates liquids well, we will discontinue this. If she tolerates the liquids well, we will advance to regular food and consider discharge either later today or in the morning.
[2018-12-19] MEDS: ACETAMINOPHEN TAB 650MG DOSE (2X325MG) PO PRN (15:11)
--- NOTE | 2018-12-19 19:30 | ECGEPIP ---
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
[2018-12-20 02:00] VITALS: BP 133/76
[2018-12-20 06:00] VITALS: BP 139/81
[2018-12-20] MEDS: ACETAMINOPHEN TAB 650MG DOSE (2X325MG) PO PRN (07:43)
[2018-12-20] MEDS: buPROPion **XL** TABLET 150MG (WELLBUTRIN XL) PO SCH (08:21)
[2018-12-20] MEDS: LEVOTHYROXINE 125MCG TABLET (0.125MG) PO SCH (08:21)
[2018-12-20 10:00] VITALS: BP 152/87
--- NOTE | 2018-12-21 18:27 | RO ---
DATE OF PROCEDURE: 12/18/2018 (Beginning on 12/18/2018 and ending on 12/19/2018) PREOPERATIVE DIAGNOSIS: Intestinal obstruction, possible closed loop obstruction. POSTOPERATIVE DIAGNOSIS: Closed loop small intestinal obstruction secondary to adhesions. PROCEDURE PERFORMED: Laparoscopy with lysis of adhesions and release of small bowel obstruction. SURGEON: Dr. Lit Sagastume FROG CATCHER: ANESTHESIA: General. INDICATIONS FOR PROCEDURE: The patient is a 43-year-old woman now approximately 3 years and a few months postop from a Merry-en-Y gastric bypass. She noted the onset of some milder mid abdominal pain around lunchtime on the 12/18/2018, and this progressed during the course of the day to become quite severe. She had some nausea. In the emergency department, she underwent a CT scan that showed a single quite dilated small bowel loop in the left mid to lower abdomen, worrisome for a closed loop obstruction. She is now for laparoscopy and possible laparotomy. DESCRIPTION OF PROCEDURE: The patient was taken to the operating room and placed on the table. The patient was placed under general endotracheal anesthesia. The patient's abdomen was prepped and draped in a sterile fashion. (dictation cut off) at the trocar sites as needed. The initial entry was in the right upper quadrant at the site of an old trocar site. A short transverse incision was made and a Veress needle was inserted. After a positive hanging drop test, the abdomen was insufflated with carbon dioxide gas. A 5 mm port was placed over a 5 mm scope and advanced through the abdominal wall without difficulty. The scope was then inserted. There did not appear to be any significant adhesions to the anterior abdominal wall. Looking in the mid to lower abdomen on the left, there was one markedly dilated loop of small bowel, perhaps 30-40 cm in length total. This was quite dilated and slightly dusky in coloration. Other loops of the bowel appeared much more normal in size. A second 5 mm trocar was placed in the right midabdomen and a third 5 mm trocar was placed in the epigastrium just to the left of the midline. Graspers were inserted. There was a band of omentum that was quite thin but appeared to be wrapped about the base of the dilated small bowel loop. This was grasped and elevated and then divided using cauterizing scissors. An attachment of this was identified on a loop of bowel slightly more lateral which was also divided. Once this was removed, it was clear that this had been the cause of her obstruction. There was no distinct site of impingement that appeared worrisome. The bowel as it was further examined appeared slightly hemorrhagic in areas but it did appear viable. Inspection showed that the involved loop began just distal to the [id number] anastomosis from her bypass and incorporated just this single loop of bowel. There was some edema noted in the mesentery of this loop. There was some free fluid in the pelvis and in the paracolic gutters and some of this was suctioned. Several additional filmy bands of adhesion were identified between the sigmoid colon and the pelvis, and these were lysed to prevent future problems. The bowel was monitored and watched for perhaps 10 or 15 minutes, and there appeared to be some movement of material through this loop with decompression of the loop. Gradually there appeared to be some early signs of peristalsis beginning distally and becoming more apparent proximally as well. I did not think that a resection was necessary and that this loop would likely heal without problems. The abdomen was then deflated, and the trocars were removed. The incisions were closed with buried #4-0 Vicryl and Steri-Strips. The patient tolerated the procedure well without apparent complication. She was awakened in the operating room, extubated and moved to the recovery room in stable condition.
--- NOTE | 2018-12-21 19:55 | IPN ---
DATE: 12/20/2018 HISTORY: The patient is now postoperative day #2 from laparoscopy with lysis of adhesions and release of a closed loop small-bowel obstruction. She was started on some regular food yesterday which she tolerated well. She continues to pass flatus but denies bowel movement yet. She had some minimal discomfort earlier and took some Tylenol. Vital signs show that she has been afebrile with a pulse generally in the 80s and 90s at times. Her blood pressure is good and her room air oxygen saturation is normal. Intake and output shows that she had 1000 mL of oral intake yesterday and 700 so far today. She has been voiding acceptably. PHYSICAL EXAMINATION: The patient is awake and alert and pleasant. She appears comfortable. She moves from the chair to the bed without any apparent difficulty. Heart exam shows a regular rhythm. The abdomen is mildly obese but soft and nontender. Her three incisions are dressed with clean dressings and there is no sign of wound infection. LABORATORY FINDINGS: Her fingerstick blood sugars have been running between 114 and 138 since yesterday evening with her using her insulin pump to manage these. IMPRESSION: The patient is doing very well with no signs of problem following her lysis of adhesions for her closed loop obstruction. PLAN: The patient will be discharged home. She can shower ad stephenie and take a diet as tolerated. I have asked her to followup with me in 7-10 days. She can return to work on , 12/24/2018 I believe without restriction. She can let me know if she needs more time off than that. She is to call the office for any problems.
== END 2018-12-20 14:00 | disposition home or self-care (01) | DRG 224 ==
LOC: M ED 17:25 → M ED INP 22:08 → M MS5PR 12-19 01:20
PROVIDERS: ADMIT Surgery; ATTEND Surgery
PROC: 0DN84ZZ Release Small Intestine, Percutaneous Endoscopic Approach (ICD-10-PCS; principal; 2018-12-18 22:07)
DX: K56.51 Intestinal adhesions [bands], with partial obstruction (principal); E03.9 Hypothyroidism, unspecified; E10.9 Type 1 diabetes mellitus without complications; Z98.84 Bariatric surgery status; Z79.4 Long term (current) use of insulin; Z79.899 Other long term (current) drug therapy

== ENCOUNTER → 2020-07-27 | Outpatient (CLI) | payer BC ==
[~2020-07-27] MED LIST changes: -/LINE60TA PO; -BUPR300T34 PO; +BUPR300T92 PO; +HYDR-3715 PO; -NORCOTAB PO; +OXYC1TAB23 PO; -PERCOCET PO; +ZYVO100T PO
== END ==
LOC: M LABSMTC 12:23
PROVIDERS: ATTEND Orthopaedic Surgery
DX: Z01.812 Encounter for preprocedural laboratory examination (principal); Z20.828 Contact with and (suspected) exposure to other viral communicable diseases

== ENCOUNTER → 2020-08-01 | Outpatient (CLI) | payer BC | LOC: M LABSMTC 09:33 | PROVIDERS: ATTEND Orthopaedic Surgery | DX: Z20.828 Contact with and (suspected) exposure to other viral communicable diseases (principal) ==

== ENCOUNTER → 2020-09-06 | Outpatient (REF) | payer BC | LOC: M WUC 15:50 | PROVIDERS: ATTEND Physician Assistant | DX: R30.0 Dysuria (principal) ==

== ENCOUNTER → 2020-09-29 | Outpatient (REF) | payer BC | LOC: M LAB REF 15:39 | PROVIDERS: ATTEND Physician Assistant | DX: R30.0 Dysuria (principal) ==

== ENCOUNTER 2020-11-18 22:20 | Emergency (ER) | payer BC ==
[~2020-11-18] VITALS: Ht 152.4 cm; Wt 75.0 kg
[~2020-11-18 22:20] MED LIST changes: -BUPR150T3 PO; +BUPR150T4 PO
[2020-11-18] MEDS ORDERED: LISI10TA22 (22:31)
[2020-11-18] MEDS ORDERED: TIZA4CAP (22:31)
--- OUTSIDE RECORDS SUMMARY | 2020-11-18 22:33 | CCD ---
Author Author Jessy Romero Organization Unknown Address [address] [address] Phone Care Team Providers Care Data Quality Consultant Name Role Phone Misti Romero PCP Allergies, Adverse Reactions, Alerts Concept Allergy Name Reaction Severity Onset Date Status Documentation Date Phone Number Npid Taxonomy Code Taxonomy Desc Author Last Name Author Fi rst Name Concept Type 849051 nkda Active 09/02/2018 RXNORM Problem List Concept Problem Description Status Start Date Created Date Resolv ed Date Snomed Code F33.1 Major Depressive Disorder, Recurrent episode, Moderate Active 10/16/2015 10/16/2015 F41.1 Generalized Anxiety Disorder Active 11/16/2020 E11.9 Type 2 diabetes mellitus without complications Active 10/25/2015 10/25/2015 G47.00 Unspecified Insomnia Disorder Active 09/16/2018 8 Medications Rx Norm Medication Route Route Concept Start Date Stop Date Dosage Fransisco quency Duration Formula Strength Dosage Form Dosage Form Code Dosage Description Medication Id Account Npid Author First Name Author Last Name Taxonomy Code Taxonomy Desc Phone Number [phone] hydroxyzine HCl 11/25/2018 30 50 mg tablet [id number] Elvira Chilel [id number] Nurse Practitioner [id number] [phone] Social History Social History Element Description Concept Effective Date Smoking Status Never smoker [id number] Immunizations No Data in Section Vital Signs No Data in Section Procedures Date Concept Id Description Targeted Site Concept Targeted Site Concept Type 11/16/2020 90295 Extended Individual Psychotherapy - 45 min CPT Patient has no history of implantable de vices Encounters Encounter Start Date End Date Encounter Type Description Diagnosis Di agnosis Desc Location Author First Name Author Last Name Npid Taxonomy Cod e Taxonomy Desc Phone Number Location Addr1 Location Addr2 Location [facility] Location [facility] Location [facility] [id number] 11/16/2020 11/16/2020 84576 Extended Individual Psych otherapy - 45 min F33.1 Major depressive disorder, recurrent, moderate [facility] Nick Chappell [phone] [id number] Closing Supervisor [phone] [address] Plan of Treatment No Data in Section Lab Results No Data in Section Instructions No Data in Section Insurance Providers Insurance Id Policy Effective Date Policy Thru Date Company N shonda [id number] 2020 [employer] (BCBS)
--- OUTSIDE RECORDS SUMMARY | 2020-11-18 22:33 | CCD | Continuity of Care Document ---
Author Author Jessy PAYNE PA-C Organization Unknown Address [address] [facility] [address] [place] [address] Phone [phone] Care Team Providers Care Silk Screen Printer Machine Name Role Phone Lia Vargas RN Canp AUTM [phone] Problems Description No Information Available Social History Type Date Description Comments Sex Unknown ETOH Use Rarely consumes alcohol Tobacco Use Start: Unknown Denies Smoking Smoking Status Reviewed: 02/08/20 Denies Smoking Allergies, Adverse Reactions, Alerts Active Allergies Reaction Severity Comments Date Latex 02/08/2020 Medications Active Medications SIG Qnty Indications Ordering Provide r Date Hydrocodone-Acetaminophen 5-325mg Tablets 1-2 tabs by mouth every 4 to 6 hours as needed / post surgical pain(Please DO Not Fill Until 08/01/2020) 6tabs Michael Ocasio MD Wellbutrin XL 300mg Tablets ER 24HR Unknown Levothyroxine Sodium 25mcg Tablets Unknown Humalog 100Unit/ML Solution Cartridge Unknown Xanax 0.25mg Tablets 1 by mouth four times a day as needed Unknown Lisinopril 10mg Tablets Lit Whittington JR, Pac Levothyroxine Sodium 125mcg Tablets Lit Whittington JR, Pac Tizanidine HCL 4mg Capsules Lit Whittington JR, Pac Phenazopyridine HCL 200mg Tablets Take One Tablet By Mouth Three Times A Day For 2 Days Unk nown Nitrofurantoin Monohydrate/Macrocrystals 100mg Capsules Sarah Vidal PA Contour Next Blood Glucose Test Strips Lit Whittington JR, Pac Fluconazole 100mg Tablets Take One Tablet By Mouth Once Daily as Needed For Yeast 3 7 Days Unknown Fluconazole 150mg Tablets Unknown Cephalexin 500mg Capsules David Dominguez PA Fluarix Quadrivalent 0.5ml Patrice Chapa MD Fluoxetine HCL 10mg Capsules Take One Capsule By Mouth Every Day Unknown Immunizations Description No Information Available Vital Signs Date Vital Result Comment 02/08/2020 10:30am Body Temperature 97.9 F Height 60.5 inches 5'0.50" Weight 160.12 lb BMI (Body Mass Index) 30.8 kg/m2 Results Test Acquired Date Facility Test Result H/L Range Note Laboratory test finding 08/01/2020 [facility] [address] [place] [address] (315)- - Coronavirus 2019 Nasopharygeal <pending> 1 Sars Covid-19 Amplification NEGATIVE Normal Negative 2 1 Comments: COVID TESTING/LOST TEST 2 A false negative result may occur if a specimen is improperly collected, transported or handled. False negative results may also occur if inadequate numbers of organisms are present in the specimen. As with any molecular test, mutations within the target regions of Xpert Xpress SARS-CoV-2 could affect primer and/or probe binding resulting in failure to detect the presence of virus. This test cannot rule out diseases caused by other bacterial or viral pathogens. DISCLAIMER: Testing was performed using the [employer] SARS-CoV-2 test. This test was developed and its performance characteristics determined by [employer]. This test has not been FDA cleared or approved. This test has been authorized by FDA under an Emergency Use Authorization (EUA). This test is only authorized for the duration of time the declaration that circumstances exist justifying the authorization of the emergency use of in vitro diagnostic tests for detection of SARS-CoV-2 virus and/or diagnosis of COVID-19 infection under section 564(b)(1) of the Act, 21 U.S.C. 360bbb-3(b)(1), unless the authorization is terminated or revoked sooner. Procedures Date Code Description Status 11/06/2020 60269 X-Ray Shoulder Complete Complete d 08/01/2020 42031 Tendon Sheath Incision (Eg Alpa er Finger) Completed Medical Devices Description No Information Available Encounters Type Date Location Provider Dx Diagnosis Office Visit 11/06/2020 2:30p Ilia Payne PA-C Z47.89 Encounter for other orthopedic aftercare M19.012 Primary osteoarthritis, left shoulder Office Visit 09/14/2020 1:00p Ilia Payne PA-C Z47.89 Encounter for other orthopedic aftercare Office Visit 08/08/2020 9:45a Ilia Payne PA-C Z47.89 Encounter for other orthopedic aftercare Office Visit 07/03/2020 8:45a Railroadanders Ocasio MD M65.311 Trigger thumb, right thumb Assessments Date Code Description Provider 11/06/2020 Z47.89 Encounter for other orthopedic a ftjuan carlos Payne PA-C 11/06/2020 M19.012 Primary osteoarthritis, left aries ulder Janelle Payne PA-C 09/14/2020 Z47.89 Encounter for other orthopedic a ftjuan carlos Payne PA-C 08/08/2020 Z47.89 Encounter for other orthopedic a bernardino Payne PA-C 08/01/2020 M65.311 Trigger thumb, right thumb Michael Ocasio MD 07/03/2020 M65.311 Trigger thumb, right thumb Michael Ocasio MD Plan of Treatment 11/06/2020 - Jnaelle Payne PA-C* Z47.89 Encounter for other orthopedic aftercare* New Xrays:* MRI RT Hand With & Without Cedric, Ordered: 11/06/20 * Follow up:* after MRI results with KLF * M19.012 Primary osteoarthritis, left shoulder Functional Status Description No Information Available Mental Status Description No Information Available Referrals Refer to Dr Reason for Referral Status Appt Date Michael Ocasio MD SURGERY PER [facility] NO AUTH REQUIRED FOR RT THUMB SURGERY (54428) AND THEY HAVE A $150 COPAY TO SURGERY NT CALL REF #[id number] Created [facility], [address] [place] [id number] [phone]
--- OUTSIDE RECORDS SUMMARY | 2020-11-18 22:34 | CCD ---
Continuity of Care Document (CCD) Created on: 09/15/2020 Jessy Del Rosario External Reference #: [id number] : 1975 Sex: Female Author Author Jessy PAYNE PA-C Organization Unknown Address [address] [facility] [address] [place] [address] Phone [phone] Care Team Providers Care Delinquency Prevention Social Worker Name Role Phone Lia Vargas RN Canp AUTM [phone] Problems Description No Information Available Social History [...] four times a day as needed Unknown Immunizations Description No Information Available Vital Signs Date Vital Result Comment 02/08/2020 10:30am Body Temperature 97.9 F Height 60.5 inches 5'0.50" Weight 160.12 lb BMI (Body Mass Index) 30.8 kg/m2 Results Test Acquired Date Facility Test Result H/L Range Note Laboratory test finding 08/01/2020 [facility] [address] [place] [address] (809)- - Coronavirus 2019 Nasopharygeal <pending> 1 Sars [...] pathogens. DISCLAIMER: Testing was performed using the [employer] SARS-CoV-2 test. This test was developed and its performance characteristics determined by [employer]. This test has not been FDA cleared [...] revoked sooner. Procedures Date Code Description Status 08/01/2020 06056 Tendon Sheath Incision (Eg Payne er Finger) Completed Medical Devices Description No Information Available Encounters Type Date Location Provider Dx Diagnosis Office Visit 09/14/2020 1:00p Ilia Payne PA-C Z47.89 Encounter for other orthopedic aftercare Office Visit 08/08/2020 9:45a Ilia Payne PA-C Z47.89 Encounter for other orthopedic aftercare Office Visit 07/03/2020 8:45a Ilia Ocasio MD M65.311 Trigger thumb, right thumb Office Visit 03/29/2020 11:15a Ilia Ocasio MD M65.311 Trigger thumb, right thumb Assessments Date Code Description Provider 09/14/2020 Z47.89 Encounter for other orthopedic a bernardino Payne PA-C 08/08/2020 Z47.89 Encounter for other orthopedic a bernardino Payne PA-C 08/01/2020 M65.311 Trigger thumb, right thumb Michael Ocasio MD 07/03/2020 M65.311 Trigger thumb, right thumb Michael Ocasio MD 03/29/2020 M65.311 Trigger thumb, right thumb Michael Ocasio MD Plan of Treatment Future Appointment(s):* 10/16/2020 8:30 am - Janelle Payne PA-C at [place] Functional Status Description No Information Available Mental Status Description No Information Available Referrals Refer to Dr Reason for Referral Status Appt Date Michael Ocasio MD SURGERY PER [facility] NO AUTH REQUIRED FOR RT THUMB SURGERY (10116) AND THEY HAVE A $150 COPAY TO SURGERY NT CALL REF #[id number] Created [address] [facility], [address] [place] [address] [phone]
--- OUTSIDE RECORDS SUMMARY | 2020-11-18 22:34 | CCD | Continuity of Care Document ---
Author Author Jessy FRANKEL A Organization Unknown Address [address] [place] [address] [place] [address] Phone [phone] Care Team Providers Care Adaptive Physical Educator Name Role Phone Lia Vargas AUTM [phone] Problems Description No Information Available Social History Type Date Description Comments Sex Unknown ETOH Use Denies alcohol use Tobacco Use Start: Unknown Patient has never smoked Smoking Status Reviewed: 09/29/20 Patient has never smoked Allergies, Adverse Reactions, Alerts Active Allergies Reaction Severity Comments Date Latex itchy, rash 05/09/2012 Inactive Allergies NKDA 05/09/2012 Ibuprofen ulcers 01/25/2016 Medications Active Medications SIG Qnty Indications Ordering Provide r Date Nitrofurantoin Monohydrate/Macrocrystals 100mg Capsules 1 twice a day x 7 days 14caps Mark Machado JR., M.D. 09/29/2020 Wellbutrin XL 300mg Tablets ER 24H R take one (1) tab daily 90tabs Mark Machado JR., M.D. 0 01/12/2016 Synthroid 25mcg Tablets po ad Unknown Humalog Mix 50/50 Unknown 000 Polysporin 500-76804Gzaw/GM Ointme nt last applied this morning Unknown Lisinopril 2.5mg Tablets Unknown History Medications Macrobid 100mg Capsules 1 tab by mouth twice a day x 7 days 14caps R30.0 Osman Steven JR. 09/06/2020 - 09/29/2020 Phenazopyridine HCL 200mg Tablets take one tab by mouth three times a day x 2 days 6tabs R30.0 Mark Machado JR., M.D. 09/06/2020 - 09/29/2020 Cephalexin 500mg Tablets take 2 tabs by mouth twice a day for 10 days 40tabs L03.211 Mark Machado JR., M.D. 07/07/2020 - 07/29/2019 Immunizations Description No Information Available Vital Signs Date Vital Result Comment 09/29/2020 8:07am BP Systolic 138 mmHg BP Diastolic 93 mmHg Heart Rate 98 /min Respiratory Rate 16 /min O2 % BldC Oximetry 99 % Body Temperature 98.3 F Weight 168.00 lb Pain Level 4 09/06/2020 12:48pm BP Systolic 134 mmHg BP Diastolic 93 mmHg Heart Rate 102 /min Respiratory Rate 16 /min O2 % BldC Oximetry 98 % Body Temperature 97.8 F Weight 170.00 lb Height 60 inches 5'0" BMI (Body Mass Index) 33.2 kg/m2 Pain Level 5 Results Test Acquired Date Facility Test Result H/L Range Note Laboratory test finding 09/06/2020 [place] [id number] [phone] Urine Culture FULL REPORT IN L <SEE NOTE> Normal 1, 2 1 rx macrobid/Pyridium 2 FULL REPORT IN LAB NOTES ([facility] and [facility]). NO GROWTH CLINICAL SIGNIFICANCE 1 ORGANISM Procedures Description No Information Available Medical Devices Description No Information Available Encounters Type Date Location Provider Dx Diagnosis Office Visit 09/29/2020 8:00a Main Office SARA Sanchez R30.0 Dysuria Office Visit 09/06/2020 1:10p Main Office SARA Gray R30 .0 Dysuria Office Visit 07/07/2020 3:15p Main Office SARA Gray L03 .211 Cellulitis of face Assessments Date Code Description Provider 09/29/2020 R30.0 Dysuria SARA Sanchez 09/06/2020 R30.0 Dysuria SARA Clancy 07/07/2020 L03.211 Cellulitis of face SARA Frederick Plan of Treatment No Information Available Functional Status Description No Information Available Mental Status Description No Information Available Referrals Description No Information Available
--- OUTSIDE RECORDS SUMMARY | 2020-11-18 22:34 | CCD | Continuity of Care Document ---
Author Author Jessy WHITTINGTON PA Organization Unknown Address [address] [address] Phone [phone] Care Team Providers Care Labor Relations Director Name Role Phone Lia Vargas AUTM [phone] Problems Description No Information Available Social History Type Date Description Comments Sex Unknown ETOH Use Rarely consumes alcohol Tobacco Use Start: Unknown Patient has never smoked Allergies, Adverse Reactions, Alerts Active Allergies Reaction Severity Comments Date NKDA 11/26/2017 Latex Allergy Contact dermatitis 11/26/19 18 Inactive Allergies NKDA 11/26/2017 Medications Active Medications SIG Qnty Indications Ordering Provide r Date Lisinopril 10mg Tablets 1 by mouth every day at night 90tabs SARA Dejesus JR 020 Bupropion Hydrochloride ER (XL) 300mg Tablets ER 24HR take one tablet by mouth every morning 90tabs SARA Dejesus JR 05/29/2019 Tacrolimus 0.1% Ointment Apply Bilaterally Eye Lids Two Times A Day 30units LINNETTE Nicole Contour Next Blood Glucose Test S trips testing 6 times daily 300units LINNETTE Nicole 11/09 BD Lancet Ultrafine 33G 33G Misc up to 6 times daily 300units LINNETTE Nicole 11/09/2018 Humalog 100Unit/ML Solution 3 milliliters every 3 days for pump 40ml LINNETTE Nicole 08/04 Fluoxetine HCL 10mg Capsules 1 by mouth every day 90caps SARA Dejesus JR 018 Levothyroxine Sodium 125mcg Tablet s 1 by mouth every day 30tabs SARA Dejesus JR 018 Fluconazole 100mg Tablets one tab by mouth X 3 Days as Needed 7tabs RENEE Taylor 11/26/2017 Alprazolam 0.25mg Tablets one twice a day as needed anxiety 30tabs SARA Dejesus JR 11/26 Tizanidine HCL 4mg Capsules 1 by mouth three times a day as needed muscle spasms 90caps SARA Dejesus JR Medications Administered in Office Medication SIG Qnty Indications Ordering Provider Date Immunization Adminstration,1 Vaccine/Tox oid Injection Lia Vargas, LINNETTE 018 Immunizations CPT Code Status Date Vaccine Lot # U-Flu Given 07/03/2020 Influenza,Unspecified U-Flu Given 10/01/2019 Influenza,Unspecified [id number] Given 08/04/2018 Influenza Virus Vaccine, Quadrivalent (Cciiv4), Derived From Cell [id number] U-Flu Given 11/30/2017 Influenza,Unspecified Vital Signs Date Vital Result Comment 09/11/2020 8:02am BP Systolic 128 mmHg BP Diastolic 80 mmHg Heart Rate 96 /min Height 59.75 inches 4'11.75" Weight 165.00 lb O2 % BldC Oximetry 99 % RM Air BMI (Body Mass Index) 32.5 kg/m2 08/09/2020 8:01am BP Systolic 140 mmHg BP Diastolic 90 mmHg Heart Rate 96 /min Height 59.75 inches 4'11.75" Weight 167.00 lb BMI (Body Mass Index) 32.9 kg/m2 Results Test Acquired Date Facility Test Result H/L Range Note A1c 08/09/2020 [facility] Supportive Employment Case Manager: AXEL Meza [id number] [phone] Hba1c 10.5 % High <5.7 1 Est Avg Glucose 255 mg/dL High 60 - 110 Laboratory test finding 08/09/2020 [facility] Supportive Employment Case Manager: AXEL Meza [id number] [phone] Thyroid Stimulating Hormone 2.91 uIU/mL 0.3 6 - 3.74 Complete Blood Count 05/09/2020 [facility] Supportive Employment Case Manager: AXEL Meza [id number] [phone] WBC 4.4 x10*3/UL 4.1 - 10.9 RBC 3.61 x10*6/UL Low 4.20 - 6.30 Hemoglobin 8.8 g/dL Low 12.0 - 18.0 2 Hematocrit 26.9 % Low 37.0 - 51.0 MCV 74.4 fL Low 80.0 - 97.0 MCH 24.5 pg Low 26.0 - 32.0 MCHC 32.9 g/dL 31.0 - 38.0 RDW 14.1 % High 11.6 - 13.7 PLT 318 x10*3/UL 140 - 440 MPV 8.6 FL 7.8 - 11.0 Lymph % 32.3 % 10.0 - 58.5 Mid % 7.2 % 1.7 - 9.3 Neut % 60.5 % 37.0 - 92.0 Lymph # 1.4 x10*3/UL 0.6 - 4.1 Mid # 0.4 x10*3/UL 0.1 - 0.6 Neut # 2.6 x10*3/UL 2.0 - 7.8 A1c 05/09/2020 [facility] , Supportive Employment Case Manager: [place] [address] [phone] Hba1c 12.3 g/dL High 4.8 - 5.6 3 Est Avg Glucose 306 mg/dL High 60 - 110 Comprehensive Chem Profile 05/09/2020 [facility], Supportive Employment Case Manager: [place] [address] [phone] Glucose 166 mg/dL High 74 - 99 4 BUN 22 mg/dL High 7 - 18 Creatinine 0.5 mg/dL Low 0.6 - 1.3 Sodium 139 mEq/L 136 - 145 Potassium 4.2 mEq/L 3.5 - 5.1 Chloride 105 mEq/L 98 - 107 Carbon Dioxide 25 mEq/L 21 - 32 Calcium 8.4 mg/dL Low 8.5 - 10.1 Alk. Phosphatase 91 mg/dL 46 - 116 Total Bilirubin 0.3 mg/dL 0.2 - 1.0 Ast (Sgot) 20 U/L 15 - 37 Alt (SGPT) 35 U/L 12 - 78 Albumin 3.3 g/dL Low 3.4 - 5.0 Total Protein 6.4 g/dL 6.4 - 8.2 A/G Ratio 1.06 CALC 1.00 - 1.90 GFR >= 60 mL/min >60 GFR >= 60 mL/min >60 5 Lipid Profile 05/09/2020 [facility] Supportive Employment Case Manager: Dr Mark Machado [place], [place] [id number] [phone] Cholesterol 186 mg/dL 131 - 200 Triglycerides 75 mg/dL 30 - 150 HDL Cholesterol 79 mg/dL High 35 - 60 LDL (Calculated) 92 CALC 50 - 159 Laboratory test finding 05/09/2020 [facility] Supportive Employment Case Manager: [place] [address] [phone] Thyroid Stimulating Hormone 2.68 uIU/mL 0.3 6 - 3.74 Microalbumin/Creatinine Urine 05/09/2020 [facility]ive Employment Case Manager: Dr Mark Machado [place], [place] [id number] [phone] Microalbumin Urine 49.7 mg/L High 1.3 - 20.0 Urine Creatinine 121.8 mg/dL 30.0 - 125.0 Microalb/Creat Ratio 40.8 ug/mg High 0.0 - 30.0 1 Lab Result Notes: Pre-Diabetes 5.7 - 6.4 % Diabetes = or > 6.5% 2 NOTE: RESULT VERIFIED. 3 Lab Result Notes: Pre-Diabetes 5.7 - 6.4 % Diabetes = or > 6.5% 4 100-125 mg/dL PRE-DIABET ES/FASTING >126 mg/dL DIABETES/FASTING 5 CHRONIC KIDNEY DISEASE STAGI NG PER NKF STAGE I & II GFR >= 60 NORMAL TO MILDLY DECREASED STAGE III GFR 30-59 MODERATELY DECREASED STAGE IV GFR 15-29 SEVERELY DECREASED STAGE V GFR <15 VERY LITTLE GFR LEFT ESRD GFR <15 ON PATENT PROSECUTION PARALEGAL Procedures Date Code Description Status 01/12/2018 528482766 Diabetic Retinal Eye Exam Comple len 11/03/2016 [id number] Mammogram Completed Medical Devices Description No Information Available Encounters Type Date Location Provider Dx Diagnosis Office Visit 08/09/2020 8:00a [facility], [place] E10.9 Type 1 diabetes mellitus wit hout complications E03.9 Hypothyroidism, unspecified F41.9 Anxiety disorder, unspecifie d I10 Essential (primary) hyperten amber Office Visit 05/09/2020 1:40p [facility] Walter JR Z00.00 Encntr for general adult med ical exam w/o abnormal findings E10.9 Type 1 diabetes mellitus wit hout complications E03.9 Hypothyroidism, unspecified F41.9 Anxiety disorder, unspecifie d Z13.89 Encounter for screening for other disorder Assessments Date Code Description Provider 09/11/2020 I10 Essential (primary) hypertension SARA Dejesus JR 08/09/2020 E10.9 Type 1 diabetes mellitus without complications SARA Dejesus JR 08/09/2020 E03.9 Hypothyroidism, unspecified SARA Arredondo JR 08/09/2020 F41.9 Anxiety disorder, unspecified SARA Correa JR 08/09/2020 I10 Essential (primary) hypertension SARA Dejesus JR 05/09/2020 Z00.00 Encounter for genera l adult medical examination without abnormal findings SARA Dejesus JR 05/09/2020 E10.9 Type 1 diabetes mellitus without complications SARA Dejesus JR 05/09/2020 E03.9 Hypothyroidism, unspecified SARA Arredondo JR 05/09/2020 F41.9 Anxiety disorder, unspecified SARA Correa JR 05/09/2020 Z13.89 Encounter for screening for othe r disorder SARA Dejesus JR Plan of Treatment 09/11/2020 - SARA Dejesus JR* I10 Essential (primary) hypertension* Comments:* She is currently at [facility] goals, diet and exercise were discussed including Mediterranean diet and 30 minutes of aerobic exercise daily, continue current medication regimen at this time. Doing well on ACEI Functional Status Description No Information Available Mental Status Description No Information Available Referrals Description No Information Available
--- OUTSIDE RECORDS SUMMARY | 2020-11-18 22:34 | CCD | Continuity of Care Document ---
Author Author Jessy FRANKEL A Organization Unknown Address [address] [place] [address] [place] [address] Phone [phone] Care Team Providers Care Hop Separator Name Role Phone Lia Vargas AUTM [phone] Problems Description No Information Available Social History [...] Unknown Humalog Mix 50/50 Unknown 000 Polysporin 500-27275Gsnr/GM Ointme nt last applied this morning Unknown [...] Result H/L Range Note Laboratory test finding 09/29/[address] [address] [phone] Urine Culture FULL REPORT IN L <SEE NOTE> Normal 1, 2 Laboratory test finding 09/06/[address] [address] [phone] Urine Culture FULL REPORT IN L <SEE NOTE> Normal 3, 4 1 PT INFORMED, will see PCP 2 FULL REPORT IN LAB NOTES (eC W and Med[facility]). NO GROWTH CLINICAL SIGNIFICANCE 1 ORGANISM 3 rx macrobid/Pyridium 4 FULL REPORT IN LAB NOTES (eC W [...]
--- OUTSIDE RECORDS SUMMARY | 2020-11-18 22:34 | CCD | Continuity of Care Document ---
Author Author Lab Schedule, Jessy Humphrey Organization Unknown Address [address] [address] Phone Unavailable Care Team Providers Care Water Fabricator Operator Name Role Phone Lia Vargas AUTM [phone] Problems Description No Information Available Social History [...] JR 018 Levothyroxine Sodium 125mcg Tablet s Take One Tablet By Mouth Every Day 30tabs SARA Dejesus JR 11/26/2017 Fluconazole 100mg Tablets one tab by mouth X 3 Days as Needed 7tabs Phyl RENEE Davis 11/26/2017 Alprazolam 0.25mg Tablets one twice a day as needed anxiety 30tabs SARA Dejesus JR 11/26 Tizanidine HCL 4mg Capsules take one capsule by mouth three times a day as needed for muscle spasms 90caps SARA Dejesus JR Medications Administered in Office Medication SIG Qnty Indications Ordering Provider Date Immunization Adminstration,1 Vaccine/Tox oid Injection Lia Vargas, LINNETTE 018 Immunizations CPT Code Status Date Vaccine Lot # U-Flu Given 07/03/2020 Influenza,Unspecified U-Flu Given 10/01/2019 Influenza,Unspecified [id number] Given 08/04/2018 Influenza Virus Vaccine, Quadrivalent (Cciiv4), Derived From Cell [id number] U-Flu Given 11/30/2017 Influenza,Unspecified Vital Signs Date [...] Date Facility Test Result H/L Range Note Basic Metabolic Panel 09/11/2020 [facility] Digital Commentator: [place] [address] [phone] Glucose 343 mg/dL High 74 - 99 1 BUN 15 mg/dL 7 - 18 Creatinine 0.8 mg/dL 0.6 - 1.3 Sodium 136 mEq/L 136 - 145 Potassium 5.4 mEq/L High 3.5 - 5.1 2 Chloride 101 mEq/L 98 - 107 Carbon Dioxide 27 mEq/L 21 - 32 Calcium 8.9 mg/dL 8.5 - 10.1 GFR >= 60 mL/min >60 GFR >= 60 mL/min >60 3 A1c 08/09/2020 [facility] Digital Commentator: [place] [address] [phone] Hba1c 10.5 % High <5.7 4 Est Avg Glucose 255 mg/dL High 60 - 110 Laboratory test finding 08/09/2020 [facility], Digital Commentator: [place] [address] [phone] Thyroid Stimulating Hormone 2.91 uIU/mL 0.3 6 - 3.74 Complete Blood Count 05/09/2020 [facility], Digital Commentator: [place] [address] [phone] WBC 4.4 x10*3/UL 4.1 - 10.9 RBC 3.61 x10*6/UL Low 4.20 - 6.30 Hemoglobin 8.8 g/dL Low 12.0 - 18.0 5 Hematocrit 26.9 % Low 37.0 - 51.0 [...] 2.6 x10*3/UL 2.0 - 7.8 A1c 05/09/2020 [facility] , Digital Commentator: [place] [address] [phone] Hba1c 12.3 g/dL High 4.8 - 5.6 6 Est Avg Glucose 306 mg/dL High 60 - 110 Comprehensive Chem Profile 05/09/2020 [facility] Digital Commentator: [place] [address] [phone] Glucose 166 mg/dL High 74 - 99 7 BUN 22 mg/dL High 7 - 18 [...] mL/min >60 GFR >= 60 mL/min >60 8 Lipid Profile 05/09/2020 [facility] , Digital Commentator: Dr [place] [id number] [phone] Cholesterol 186 mg/dL 131 - 200 Triglycerides 75 mg/dL 30 - 150 HDL Cholesterol 79 mg/dL High 35 - 60 LDL (Calculated) 92 CALC 50 - 159 Laboratory test finding 05/09/2020 [facility], Digital Commentator: [place] [address] [phone] Thyroid Stimulating Hormone 2.68 uIU/mL 0.3 6 - 3.74 Microalbumin/Creatinine Urine 05/09/2020 [facility], Digital Commentator: [place] [address] [phone] Microalbumin Urine 49.7 mg/L High 1.3 - 20.0 Urine Creatinine 121.8 mg/dL 30.0 - 125.0 Microalb/Creat Ratio 40.8 ug/mg High 0.0 - 30.0 1 100-125 mg/dL PRE-DIABET ES/FASTING >126 mg/dL DIABETES/FASTING 2 NOTE: RESULT VERIFIED. NO VISIBLE HEMOLYSIS. 3 CHRONIC KIDNEY DISEASE STAGI NG PER NKF STAGE I & II GFR >= 60 NORMAL TO MILDLY DECREASED STAGE III GFR 30-59 MODERATELY DECREASED STAGE IV GFR 15-29 SEVERELY DECREASED STAGE V GFR <15 VERY LITTLE GFR LEFT ESRD GFR <15 ON WEB PRESS OPERATOR APPRENTICE 4 Lab Result Notes: Pre-Diabetes 5.7 - 6.4 % Diabetes = or > 6.5% 5 NOTE: RESULT VERIFIED. 6 Lab Result Notes: Pre-Diabetes 5.7 - 6.4 % Diabetes = or > 6.5% 7 100-125 mg/dL PRE-DIABET ES/FASTING >126 mg/dL DIABETES/FASTING 8 CHRONIC KIDNEY DISEASE STAGI NG PER NKF STAGE I & II GFR >= 60 NORMAL TO MILDLY DECREASED STAGE III GFR 30-59 MODERATELY DECREASED STAGE IV GFR 15-29 SEVERELY DECREASED STAGE V GFR <15 VERY LITTLE GFR LEFT ESRD GFR <15 ON WEB PRESS OPERATOR APPRENTICE Procedures Date Code Description Status 01/12/2018 [id number] Diabetic Retinal Eye Exam Comple len 11/03/2016 [id number] Mammogram Completed Medical Devices Description No Information Available Encounters Type Date Location Provider Dx Diagnosis Office Visit 09/11/2020 8:00a [facility]CSARA Walter JR I10 Essential (primary) hyperten amber Office Visit 08/09/2020 8:00a [facility] PSARA Montano JR E10.9 Type 1 diabetes mellitus wit hout complications E03.9 Hypothyroidism, unspecified F41.9 Anxiety disorder, unspecifie d I10 Essential (primary) hyperten amber Office Visit 05/09/2020 1:40p [facility] PSARA Montano JR Z00.00 Encntr for general adult med [...] Arredondo JR 08/09/2020 F41.9 Anxiety disorder, unspecified Ro SARA Esquivel JR 08/09/2020 I10 Essential (primary) hypertension SARA Dejesus JR 05/09/2020 Z00.00 Encounter for genera l adult medical examination without abnormal findings SARA Dejesus JR 05/09/2020 E10.9 Type 1 diabetes mellitus without complications SARA Dejesus JR 05/09/2020 E03.9 Hypothyroidism, unspecified [place] SARA Tirado JR 05/09/2020 F41.9 Anxiety disorder, unspecified Ro SARA Esquivel JR 05/09/2020 Z13.89 Encounter for screening for othe r disorder SARA Dejesus JR Plan of Treatment Future Appointment(s):* 12/12/2020 8:00 am - SARA Dejesus JR at [facility] 09/11/2020 - SARA Dejesus JR* I10 Essential [...]
--- OUTSIDE RECORDS SUMMARY | 2020-11-18 22:34 | CCD | Continuity of Care Document ---
Author Author Jessy BOYCE PA Organization Unknown Address [address] [address] Phone [phone] Care Team Providers Care Finance Business Manager Name Role Phone Lia Vargas AUTM [phone] Problems Description No Information Available Social History [...] Given 07/03/2020 Influenza,Unspecified U-Flu Given 10/01/2019 Influenza,Unspecified 91061 Given 08/04/2018 Influenza Virus Vaccine, Quadrivalent (Cciiv4), Derived From Cell [id number] U-Flu Given 11/30/2017 Influenza,Unspecified Vital Signs Date [...] H/L Range Note Basic Metabolic Panel 09/11/2020 [facility] Local Bulk Driver: Dr Mark Machado [place], [place] [id number] [phone] Glucose 343 mg/dL High 74 - 99 [...] >= 60 mL/min >60 3 A1c 08/09/2020 [facility] , Local Bulk Driver: Dr Mark Machado [place], [place] [id number] [phone] Hba1c 10.5 % High <5.7 4 Est Avg Glucose 255 mg/dL High 60 - 110 Laboratory test finding 08/09/2020 [facility], Local Bulk Driver: [place] [address] [phone] Thyroid Stimulating Hormone 2.91 uIU/mL 0.3 6 - 3.74 Complete Blood Count 05/09/2020 [facility] Local Bulk Driver: [place] [address] [phone] WBC 4.4 x10*3/UL 4.1 - 10.9 RBC [...] 2.6 x10*3/UL 2.0 - 7.8 A1c 05/09/2020 [facility] Local Bulk Driver: [place] [address] [phone] Hba1c 12.3 g/dL High 4.8 - 5.6 6 Est Avg Glucose 306 mg/dL High 60 - 110 Comprehensive Chem Profile 05/09/2020 [facility] Local Bulk Driver: [place] [address] [phone] Glucose 166 mg/dL High 74 - 99 [...] 60 mL/min >60 8 Lipid Profile 05/09/2020 [facility] , Local Bulk Driver: Dr Mark Machado [place] [id number] [phone] Cholesterol 186 mg/dL 131 - 200 Triglycerides 75 mg/dL 30 - 150 HDL Cholesterol 79 mg/dL High 35 - 60 LDL (Calculated) 92 CALC 50 - 159 Laboratory test finding 05/09/2020 [facility], Local Bulk Driver: Dr [place] [address] [phone] Thyroid Stimulating Hormone 2.68 uIU/mL 0.3 6 - 3.74 Microalbumin/Creatinine Urine 05/09/2020 [facility] Local Bulk Driver: Dr Mark Machado [place] [id number] [phone] Microalbumin Urine 49.7 mg/L High 1.3 - [...] LITTLE GFR LEFT ESRD GFR <15 ON STOCK SPECULATOR 4 Lab Result Notes: Pre-Diabetes 5.7 - [...] LITTLE GFR LEFT ESRD GFR <15 ON STOCK SPECULATOR Procedures Date Code Description Status 01/12/2018 [id number] Diabetic Retinal Eye Exam Comple len 11/03/2016 [id number] Mammogram Completed Medical Devices Description No Information Available Encounters Type Date Location Provider Dx Diagnosis Office Visit 08/09/2020 8:00a [facility]CS[facility] Walter JR E10.9 Type 1 diabetes mellitus wit hout complications E03.9 Hypothyroidism, unspecified F41.9 Anxiety disorder, unspecifie d I10 Essential (primary) hyperten amber Office Visit 05/09/2020 1:40p [facility], [place] Z00.00 Encntr for general adult med ical [...] 8:00 am - SARA Dejesus JR at [facility] 09/11/2020 - SARA Dejesus JR* [...]
--- OUTSIDE RECORDS SUMMARY | 2020-11-18 22:34 | CCD | Continuity of Care Document ---
Author Author Jessy FRANKEL A Organization Unknown Address [address] [place] [address] [place] [address] Phone [phone] Care Team Providers Care Dragsaw Operator Name Role Phone Lia Vargas AUTM [phone] Problems Description No Information Available Social History [...] Unknown Humalog Mix 50/50 Unknown 000 Polysporin 500-59139Cdgp/GM Ointme nt last applied this morning Unknown [...] H/L Range Note Laboratory test finding 09/06/2020 [place] [id number] [phone] Urine Culture FULL REPORT IN L <SEE NOTE> Normal 1, 2 1 rx macrobid/Pyridium 2 FULL REPORT IN LAB NOTES (eC W and Med[facility]). NO GROWTH CLINICAL SIGNIFICANCE 1 ORGANISM Procedures Description No Information Available Medical Devices Description No Information Available Encounters Type Date Location Provider Dx Diagnosis Office Visit 09/06/2020 1:10p Main Office SARA Gray R30 .0 Dysuria Office Visit 07/07/2020 3:15p Main Office SARA Gray L03 .211 Cellulitis of face Assessments Date Code Description Provider 09/06/2020 R30.0 Dysuria SARA Clancy 07/07/2020 L03.211 Cellulitis of face SARA Frederick Plan of Treatment 09/29/2020 - SARA Sanchez* All * New Medication:* Nitrofurantoin Monohydrate/Macrocrystals 100 mg - 1 twice a day x 7 days Functional Status Description No Information Available Mental Status Description No Information Available Referrals Description No Information Available
--- OUTSIDE RECORDS SUMMARY | 2020-11-18 22:34 | CCD | Continuity of Care Document ---
Author Author Jessy PAYNE PA-C Organization Unknown Address [address] [facility] [address] [place] [address] Phone [phone] Care Team Providers Care Tire Repair Mechanic Name Role Phone Lia Vargas RN Canp AUTM [phone] Problems Description No Information Available Social History [...] H/L Range Note Laboratory test finding 08/01/2020 [facility] [address] [place] [address] [phone] Coronavirus 2019 Nasopharygeal <pending> 1 Sars [...] pathogens. DISCLAIMER: Testing was performed using the [employer] SARS-CoV-2 test. This test was developed and its performance characteristics determined by [employer]. This test has not been FDA cleared [...] sooner. Procedures Date Code Description Status 08/01/2020 73866 Tendon Sheath Incision (Eg Colbert er Finger) Completed Medical Devices Description No [...] 8:30 am - Janelle Payne PA-C at [place] Functional Status Description No Information Available Mental Status Description No Information Available Referrals Refer to Dr Reason for Referral Status Appt Date Michael Ocasio MD SURGERY PER [facility] AT B/S NO AUTH REQUIRED FOR RT THUMB SURGERY ([id number]) AND THEY HAVE A $150 COPAY TO SURGERY NT CALL REF #[id number] Created [address] [facility], [address] [place] [address] [phone]
--- OUTSIDE RECORDS SUMMARY | 2020-11-18 22:34 | CCD | Continuity of Care Document ---
Author Author Lab Schedule, Jessy Humphrey Organization Unknown Address [address] [address] Phone Unavailable Care Team Providers Care Etiquette Coach Name Role Phone Lia Vargas AUTM [phone] Problems Description No Information Available Social History [...] Given 07/03/2020 Influenza,Unspecified U-Flu Given 10/01/2019 Influenza,Unspecified 03905 Given 08/04/2018 Influenza Virus Vaccine, Quadrivalent (Cciiv4), Derived From Cell [id number] U-Flu Given 11/30/2017 Influenza,Unspecified Vital Signs Date [...] Result H/L Range Note Basic Metabolic Panel 10/13/2020 [facility] jody padilla Pump Servicer Helper: [place] [address] [phone] Glucose 197 mg/dL High 74 - 99 1 BUN 16 mg/dL 7 - 18 Creatinine 0.7 mg/dL 0.6 - 1.3 Sodium 140 mEq/L 136 - 145 Potassium 4.9 mEq/L 3.5 - 5.1 Chloride 107 mEq/L 98 - 107 Carbon Dioxide 25 mEq/L 21 - 32 Calcium 8.6 mg/dL 8.5 - 10.1 GFR >= 60 mL/min >60 GFR >= 60 mL/min >60 2 Basic Metabolic Panel 09/11/2020 [facility] Pump Servicer Helper: Dr Mark Machado [place], [place] [id number] [phone] Glucose 343 mg/dL High 74 - 99 3 BUN 15 mg/dL 7 - 18 Creatinine 0.8 mg/dL 0.6 - 1.3 Sodium 136 mEq/L 136 - 145 Potassium 5.4 mEq/L High 3.5 - 5.1 4 Chloride 101 mEq/L 98 - 107 Carbon Dioxide 27 mEq/L 21 - 32 Calcium 8.9 mg/dL 8.5 - 10.1 GFR >= 60 mL/min >60 GFR >= 60 mL/min >60 5 A1c 08/09/2020 [facility] Pump Servicer Helper: [place] [address] [phone] Hba1c 10.5 % High <5.7 6 Est Avg Glucose 255 mg/dL High 60 - 110 Laboratory test finding 08/09/2020 [facility] Pump Servicer Helper: Dr Mark Machado [place] [id number] [phone] Thyroid Stimulating Hormone 2.91 uIU/mL 0.3 6 - 3.74 Complete Blood Count 05/09/2020 [facility] Pump Servicer Helper: Dr Mark [place] [address] [phone] WBC 4.4 x10*3/UL 4.1 - 10.9 RBC 3.61 x10*6/UL Low 4.20 - 6.30 Hemoglobin 8.8 g/dL Low 12.0 - 18.0 7 Hematocrit 26.9 % Low 37.0 - 51.0 [...] 2.6 x10*3/UL 2.0 - 7.8 A1c 05/09/2020 [facility] , Pump Servicer Helper: Dr Mark Machado [place], [place] [id number] [phone] Hba1c 12.3 g/dL High 4.8 - 5.6 8 Est Avg Glucose 306 mg/dL High 60 - 110 Comprehensive Chem Profile 05/09/2020 [facility], Pump Servicer Helper: Dr Mark aMchado [place], [place] [id number] [phone] Glucose 166 mg/dL High 74 - 99 9 BUN 22 mg/dL High 7 - 18 [...] mL/min >60 GFR >= 60 mL/min >60 10 Lipid Profile 05/09/2020 [facility] Pump Servicer Helper: [place] [address] [phone] Cholesterol 186 mg/dL 131 - 200 Triglycerides 75 mg/dL 30 - 150 HDL Cholesterol 79 mg/dL High 35 - 60 LDL (Calculated) 92 CALC 50 - 159 Laboratory test finding 05/09/2020 [facility], Pump Servicer Helper: [place] [address] [phone] Thyroid Stimulating Hormone 2.68 uIU/mL 0.3 6 - 3.74 Microalbumin/Creatinine Urine 05/09/2020 [facility], Pump Servicer Helper: [place] [address] [phone] Microalbumin Urine 49.7 mg/L High 1.3 - 20.0 Urine Creatinine 121.8 mg/dL 30.0 - 125.0 Microalb/Creat Ratio 40.8 ug/mg High 0.0 - 30.0 1 100-125 mg/dL PRE-DIABET ES/FASTING >126 mg/dL DIABETES/FASTING 2 CHRONIC KIDNEY DISEASE STAGI NG PER NKF STAGE I & II GFR >= 60 NORMAL TO MILDLY DECREASED STAGE III GFR 30-59 MODERATELY DECREASED STAGE IV GFR 15-29 SEVERELY DECREASED STAGE V GFR <15 VERY LITTLE GFR LEFT ESRD GFR <15 ON FIRE ALARM OPERATOR 3 100-125 mg/dL PRE-DIABET ES/FASTING >126 mg/dL DIABETES/FASTING 4 NOTE: RESULT VERIFIED. NO VISIBLE HEMOLYSIS. 5 CHRONIC KIDNEY DISEASE STAGI NG PER NKF STAGE I & II GFR >= 60 NORMAL TO MILDLY DECREASED STAGE III GFR 30-59 MODERATELY DECREASED STAGE IV GFR 15-29 SEVERELY DECREASED STAGE V GFR <15 VERY LITTLE GFR LEFT ESRD GFR <15 ON FIRE ALARM OPERATOR 6 Lab Result Notes: Pre-Diabetes 5.7 - 6.4 % Diabetes = or > 6.5% 7 NOTE: RESULT VERIFIED. 8 Lab Result Notes: Pre-Diabetes 5.7 - 6.4 % Diabetes = or > 6.5% 9 100-125 mg/dL PRE-DIABET ES/FASTING >126 mg/dL DIABETES/FASTING 10 CHRONIC KIDNEY DISEASE STAGI NG PER NKF STAGE I & II GFR >= 60 NORMAL TO MILDLY DECREASED STAGE III GFR 30-59 MODERATELY DECREASED STAGE IV GFR 15-29 SEVERELY DECREASED STAGE V GFR <15 VERY LITTLE GFR LEFT ESRD GFR <15 ON FIRE ALARM OPERATOR Procedures Date Code Description Status 01/12/2018 286021728 Diabetic Retinal Eye Exam Comple len 11/03/2016 [id number] Mammogram Completed Medical Devices Description No Information Available Encounters Type Date Location Provider Dx Diagnosis Office Visit 09/11/2020 8:00a Danny Martinez JR, PA I10 Essential (primary) hyperten amber Office Visit 08/09/2020 8:00a Danny Martinez JR, PA E10.9 Type 1 diabetes mellitus wit hout complications E03.9 Hypothyroidism, unspecified F41.9 Anxiety disorder, unspecifie d I10 Essential (primary) hyperten amber Office Visit 05/09/2020 1:40p [facility] SARA Cornell JR Z00.00 Encntr for general adult med ical exam w/o abnormal findings E10.9 Type 1 diabetes mellitus wit hout complications E03.9 Hypothyroidism, unspecified F41.9 Anxiety disorder, unspecifie d Z13.89 Encounter for screening for other disorder Assessments Date Code Description Provider 10/13/2020 I10 Essential (primary) hypertension Rafal Rosado M.D. 10/13/2020 I10 Essential (primary) hypertension Lab Schedule 09/11/2020 I10 Essential (primary) hypertension SARA Dejesus [...] Arredondo JR 05/09/2020 F41.9 Anxiety disorder, unspecified Ro SARA Esquivel JR 05/09/2020 Z13.89 Encounter for screening for othe r disorder SARA Dejesus JR Plan of Treatment Future Appointment(s):* 12/12/2020 8:00 am - SARA Dejesus JR at [facility] 09/11/2020 - SARA Dejesus JR* I10 [...]
--- OUTSIDE RECORDS SUMMARY | 2020-11-18 22:34 | CCD | Continuity of Care Document ---
Author Author Jessy BOYCE PA Organization Unknown Address [address] [address] Phone [phone] Care Team Providers Care Carriage Setter Name Role Phone Lia Vargas AUTM [phone] Problems Description No Information Available Social History [...] tablet by mouth every morning 90tabs SARA Dejseus JR 05/29/2019 Tacrolimus 0.1% Ointment Apply Bilaterally [...] Given 07/03/2020 Influenza,Unspecified U-Flu Given 10/01/2019 Influenza,Unspecified 60273 Given 08/04/2018 Influenza Virus Vaccine, Quadrivalent (Cciiv4), Derived From Cell [id number] U-Flu Given 11/30/2017 Influenza,Unspecified Vital Signs Date [...] H/L Range Note Basic Metabolic Panel 09/11/2020 [facility] Biztalk Software Developer: Dr Mark Machado [place], [place] [id number] [phone] Glucose 343 mg/dL High 74 - 99 [...] >= 60 mL/min >60 3 A1c 08/09/2020 [facility] , Biztalk Software Developer: Dr Mark Machado [place], [place] [id number] [phone] Hba1c 10.5 % High <5.7 4 Est Avg Glucose 255 mg/dL High 60 - 110 Laboratory test finding 08/09/2020 [facility], Biztalk Software Developer: [place] [address] [phone] Thyroid Stimulating Hormone 2.91 uIU/mL 0.3 6 - 3.74 Complete Blood Count 05/09/2020 [facility] Biztalk Software Developer: [place] [address] [phone] WBC 4.4 x10*3/UL 4.1 - 10.9 RBC [...] 2.6 x10*3/UL 2.0 - 7.8 A1c 05/09/2020 [facility] Biztalk Software Developer: [place] [address] [phone] Hba1c 12.3 g/dL High 4.8 - 5.6 6 Est Avg Glucose 306 mg/dL High 60 - 110 Comprehensive Chem Profile 05/09/2020 [facility] Biztalk Software Developer: [place] [address] [phone] Glucose 166 mg/dL High 74 - 99 [...] 60 mL/min >60 8 Lipid Profile 05/09/2020 [facility] , Biztalk Software Developer: Dr Mark Machado [place] [id number] [phone] Cholesterol 186 mg/dL 131 - 200 Triglycerides 75 mg/dL 30 - 150 HDL Cholesterol 79 mg/dL High 35 - 60 LDL (Calculated) 92 CALC 50 - 159 Laboratory test finding 05/09/2020 [facility], Biztalk Software Developer: Dr Mark [place] [address] [phone] Thyroid Stimulating Hormone 2.68 uIU/mL 0.3 6 - 3.74 Microalbumin/Creatinine Urine 05/09/2020 [facility] Biztalk Software Developer: Dr Mark Machado [place] [id number] [phone] Microalbumin Urine 49.7 mg/L High 1.3 - [...] LITTLE GFR LEFT ESRD GFR <15 ON ROLL TUBE SETTER 4 Lab Result Notes: Pre-Diabetes 5.7 - [...] LITTLE GFR LEFT ESRD GFR <15 ON ROLL TUBE SETTER Procedures Date Code Description Status 01/12/2018 [id number] Diabetic Retinal Eye Exam Comple len 11/03/2016 [id number] Mammogram Completed Medical Devices Description No Information Available Encounters Type Date Location Provider Dx Diagnosis Office Visit 09/11/2020 8:00a [facility] Walter JR I10 Essential (primary) hyperten amber Office Visit 08/09/2020 8:00a [facility] PSARA Montano JR E10.9 Type 1 diabetes mellitus wit hout complications E03.9 Hypothyroidism, unspecified F41.9 Anxiety disorder, unspecifie d I10 Essential (primary) hyperten amber Office Visit 05/09/2020 1:40p [facility] PSARA Montano JR Z00.00 Encntr [...] SARA Dejesus JR 05/09/2020 E03.9 Hypothyroidism, unspecified Tashi SARA Tirado JR 05/09/2020 F41.9 Anxiety disorder, unspecified Ro SARA Esquivel JR 05/09/2020 Z13.89 Encounter for screening for othe r disorder SARA Dejesus JR Plan of Treatment Future Appointment(s):* 10/02/2020 9:40 am - Lab Schedule at [facility] * 12/12/2020 8:00 am - SARA Dejesus JR at [facility] 09/11/2020 - SARA Dejesus JR* [...]
--- OUTSIDE RECORDS SUMMARY | 2020-11-18 22:34 | CCD | Continuity of Care Document ---
Author Author Lab Schedule, Jessy Humphrey Organization Unknown Address [address] [address] Phone Unavailable Care Team Providers Care Manager Reimbursement Name Role Phone Lia Vargas AUTM [phone] Problems Description No Information Available Social History [...] Given 07/03/2020 Influenza,Unspecified U-Flu Given 10/01/2019 Influenza,Unspecified 41882 Given 08/04/2018 Influenza Virus Vaccine, Quadrivalent (Cciiv4), Derived From Cell [id number] U-Flu Given 11/30/2017 Influenza,Unspecified Vital Signs Date [...] H/L Range Note Basic Metabolic Panel 10/13/2020 [facility] jody padilla Laster Hand: [place] [address] [phone] Glucose 197 mg/dL High 74 - 99 [...] mL/min >60 2 Basic Metabolic Panel 09/11/2020 [facility] Laster Hand: Dr Mark Machado [place], [place] [id number] [phone] Glucose 343 mg/dL High 74 - 99 [...] >= 60 mL/min >60 5 A1c 08/09/2020 [facility] Laster Hand: [place] [address] [phone] Hba1c 10.5 % High <5.7 6 Est Avg Glucose 255 mg/dL High 60 - 110 Laboratory test finding 08/09/2020 [facility] Laster Hand: Dr Mark Machado [place] [id number] [phone] Thyroid Stimulating Hormone 2.91 uIU/mL 0.3 6 - 3.74 Complete Blood Count 05/09/2020 [facility] Laster Hand: [place] [address] [phone] WBC 4.4 x10*3/UL 4.1 - 10.9 RBC [...] 2.6 x10*3/UL 2.0 - 7.8 A1c 05/09/2020 [facility] , Laster Hand: Dr Mark Machado [place], [place] [id number] [phone] Hba1c 12.3 g/dL High 4.8 - 5.6 8 Est Avg Glucose 306 mg/dL High 60 - 110 Comprehensive Chem Profile 05/09/2020 [facility], Laster Hand: Dr Mark Machado [place], [place] [id number] [phone] Glucose 166 mg/dL High 74 - 99 [...] 60 mL/min >60 10 Lipid Profile 05/09/2020 [facility] Laster Hand: [place] [address] [phone] Cholesterol 186 mg/dL 131 - 200 Triglycerides 75 mg/dL 30 - 150 HDL Cholesterol 79 mg/dL High 35 - 60 LDL (Calculated) 92 CALC 50 - 159 Laboratory test finding 05/09/2020 [facility], Laster Hand: [place] [address] [phone] Thyroid Stimulating Hormone 2.68 uIU/mL 0.3 6 - 3.74 Microalbumin/Creatinine Urine 05/09/2020 [facility], Laster Hand: [place] [address] [phone] Microalbumin Urine 49.7 mg/L High 1.3 - [...] LITTLE GFR LEFT ESRD GFR <15 ON CYBER SECURITY 3 100-125 mg/dL PRE-DIABET ES/FASTING >126 mg/dL DIABETES/FASTING 4 NOTE: RESULT VERIFIED. NO VISIBLE HEMOLYSIS. 5 CHRONIC KIDNEY DISEASE STAGI NG PER NKF STAGE I & II GFR >= 60 NORMAL TO MILDLY DECREASED STAGE III GFR 30-59 MODERATELY DECREASED STAGE IV GFR 15-29 SEVERELY DECREASED STAGE V GFR <15 VERY LITTLE GFR LEFT ESRD GFR <15 ON CYBER SECURITY 6 Lab Result Notes: Pre-Diabetes 5.7 - [...] LITTLE GFR LEFT ESRD GFR <15 ON CYBER SECURITY Procedures Date Code Description Status 01/12/2018 [id number] Diabetic Retinal Eye Exam Comple len 11/03/2016 [id number] Mammogram Completed Medical Devices Description No Information Available Encounters Type Date Location Provider Dx Diagnosis Office Visit 09/11/2020 8:00a Danny Martinez JR, PA I10 Essential (primary) hyperten amber Office Visit 08/09/2020 8:00a Danny Martinez JR, PA E10.9 Type 1 diabetes mellitus wit hout complications E03.9 Hypothyroidism, unspecified F41.9 Anxiety disorder, unspecifie d I10 Essential (primary) hyperten amber Office Visit 05/09/2020 1:40p [facility] SARA Cornell JR Z00.00 Encntr [...] 8:00 am - SARA Dejesus JR at [facility] 09/11/2020 - SARA Dejesus [...]
--- OUTSIDE RECORDS SUMMARY | 2020-11-18 22:35 | CCD ---
Author Author [facility] Organization [facility] Address Unknown Phone Unavailable Care Team Providers Care Classification Inspector Name Role Phone Campanaro, Mare Sharon PA Unavailable Unavailable Campanaro, Mare Sharon PA Unavailable Unavailable Campanaro, Mare Sharon PA Unavailable Unavailable Campanaro, Mare Sharon PA Unavailable Unavailable Campanaro, Mare Sharon PA Unavailable Unavailable Campanaro, Mare Sharon PA Unavailable Unavailable Campanaro, Mare Sharon PA Unavailable Unavailable Campanaro, Mare Sharon PA Unavailable Unavailable Campanaro, Mare Sharon PA Unavailable Unavailable Campanaro, Mare Sharon PA Unavailable Unavailable Campanaro, Mare Sharon PA Unavailable Unavailable Campanaro, Mare Sharon PA Unavailable Unavailable Campanaro, Mare Sharon PA Unavailable Unavailable Campanaro, Mare Sharon PA Unavailable Unavailable Campanaro, Mare Sharon PA Unavailable Unavailable Campanaro, Mare Sharon PA Unavailable Unavailable Campanaro, Mare Sharon PA Unavailable Unavailable Campanaro, Mare Sharon PA Unavailable Unavailable Mira Claros MPAS, PA-C Unavailable Unavailabl e FishMira MPAS, PA-C Unavailable Unavailabl e FishMira MPAS, PA-C Unavailable Unavailabl e Fish, [facility], PA-C Unavailable Unavailabl e Fish, [facility], PA-C Unavailable Unavailabl e Fish, [facility], PA-C Unavailable Unavailabl e Fish, [facility], PA-C Unavailable Unavailabl e Fish, [facility], PA-C Unavailable Unavailabl e Fish, [facility], PA-C Unavailable Unavailabl e Fish, [facility], PA-C Unavailable Unavailabl e Fish, [facility], PA-C Unavailable Unavailabl e Fish, [facility], PA-C Unavailable Unavailabl e Fish, [facility], PA-C Unavailable Unavailabl e Fish, [facility], PA-C Unavailable Unavailabl e Fish, [facility], PA-C Unavailable Unavailabl e Fish, [facility], PA-C Unavailable Unavailabl e Fish, [facility], PA-C Unavailable Unavailabl e Fish, [facility], PA-C Unavailable Unavailabl e Fish, [facility], PA-C Unavailable Unavailabl e Fish, [facility], PA-C Unavailable Unavailabl e Fish, [facility], PA-C Unavailable Unavailabl e Fish, [facility], PA-C Unavailable Unavailabl e Fish, [facility], PA-C Unavailable Unavailabl e Fish, [facility], PA-C Unavailable Unavailabl e Fish, [facility], PA-C Unavailable Unavailabl e Fish, [facility], PA-C Unavailable Unavailabl e Fish, [facility], PA-C Unavailable Unavailabl e Fish, [facility], PA-C Unavailable Unavailabl e Fish, [facility], PA-C Unavailable Unavailabl e Fish, [facility], PA-C Unavailable Unavailabl e Fish, [facility], PA-C Unavailable Unavailabl e Fish, [facility], PA-C Unavailable Unavailabl e Fish, [facility], PA-C Unavailable Unavailabl e Alisha BOYCE JR, PA-C Unavailable Unavailable Alisha BOYCE JR, PA-C Unavailable Unavailable PICKERAL JR, J JEANNA PA-C Unavailable Unavailable PICKERAL JR, J JEANNA PA-C Unavailable Unavailable PICKERAL JR, J JEANNA PA-C Unavailable Unavailable PICKERAL JR, J JEANNA PA-C Unavailable Unavailable PICKERAL JR, J JEANNA PA-C Unavailable Unavailable PICKERAL JR, J JEANNA PA-C Unavailable Unavailable PICKERAL JR, J JEANNA PA-C Unavailable Unavailable PICKERAL JR, J JEANNA PA-C Unavailable Unavailable PICKERAL JR, J JEANNA PA-C Unavailable Unavailable PICKERAL JR, J JEANNA PA-C Unavailable Unavailable PICKERAL JR, J JEANNA PA-C Unavailable Unavailable PICKERAL JR, J JEANNA PA-C Unavailable Unavailable PICKERAL JR, J JEANNA PA-C Unavailable Unavailable PICKERAL JR, J JEANNA PA-C Unavailable Unavailable PICKERAL JR, J JEANNA PA-C Unavailable Unavailable PICKERAL JR, J JEANNA PA-C Unavailable Unavailable PICKERAL JR, J JEANNA PA-C Unavailable Unavailable Misti Romero Unavailable Vidal, Josephine Sarah PA Unavailable Unavailable Vidal, Josephine Sarah PA Unavailable Unavailable Vidal, Josephine Sarah PA Unavailable Unavailable Vidal, Josephine Sarah PA Unavailable Unavailable Vidal, Josephine Sarah PA Unavailable Unavailable Vidal, Josephine Sarah PA Unavailable Unavailable Vidal, Josephine Sarah PA Unavailable Unavailable Vidal, Josephine Sarah PA Unavailable Unavailable Vidal, Josephine Sarah PA Unavailable Unavailable Vidal, Josephine Sarah PA Unavailable Unavailable Sadaf Ocasio MD Unavailable Unavailable Sadaf Ocasio MD Unavailable Unavailable Sadaf Ocasio MD Unavailable Unavailable Sadaf Ocasio MD Unavailable Unavailable Sadaf Ocasio MD Unavailable Unavailable Sadaf Ocasio MD Unavailable Unavailable Sadaf Ocasio MD Unavailable Unavailable Sadaf Ocasio MD Unavailable Unavailable Sadaf Ocasio MD Unavailable Unavailable Sadaf Ocasio MD Unavailable Unavailable Sadaf Ocasio MD Unavailable Unavailable Sadaf Ocasio MD Unavailable Unavailable Sadaf Ocasio MD Unavailable Unavailable Sadaf Ocasio MD Unavailable Unavailable Sadaf Ocasio MD Unavailable Unavailable Sadaf Ocasio MD Unavailable Unavailable Sadaf Ocasio MD Unavailable Unavailable Sadaf Ocasio MD Unavailable Unavailable Sadaf Ocasio MD Unavailable Unavailable Sadaf Ocasio MD Unavailable Unavailable Sadaf Ocasio MD Unavailable Unavailable Sadaf Ocasio MD Unavailable Unavailable Ocasio, Sadaf Rodriguez MD Unavailable Unavailable Ocasio, Sadaf Rodriguez MD Unavailable Unavailable Ocasio, Sadaf Rodriguez MD Unavailable Unavailable Ocasio, L Michael PRUITT Unavailable Unavailable Ocasio, L Michael PRUITT Unavailable Unavailable Ocasio, L Michael PRUITT Unavailable Unavailable Ocasio, L Michael PRUITT Unavailable Unavailable Ocasio, L Michael PRUITT Unavailable Unavailable Ocasio, L Michael PRUITT Unavailable Unavailable Ocasio, L Michael PRUITT Unavailable Unavailable Ocasio, L Michael PRUITT Unavailable Unavailable Ocasio, L Michael PRUITT Unavailable Unavailable Ocasio, L Michael PRUITT Unavailable Unavailable Ocasio, L Michael PRUITT Unavailable Unavailable Ocasio, L Michael PRUITT Unavailable Unavailable Ocasio, L Michael PRUITT Unavailable Unavailable Ocasio, L Michael PRUITT Unavailable Unavailable Ocasio, L Michael PRUITT Unavailable Unavailable Ocasio, L Michael PRUITT Unavailable Unavailable Ocasio, L Michael PRUITT Unavailable Unavailable Ocasio, L Michael PRUITT Unavailable Unavailable Ocasio, L Michael PRUITT Unavailable Unavailable Ocasio, Sadaf Rodriguez MD Unavailable Unavailable Ocasio, Sadaf Rodriguez MD Unavailable Unavailable Ocasio, Sadaf Rodriguez MD Unavailable Unavailable LETTIERE, A SINGH PA Unavailable Unavailable LETTIERE, A SINGH PA Unavailable Unavailable LETTIERE, A SINGH PA Unavailable Unavailable LETTIERE, A SINGH PA Unavailable Unavailable LETTIERE, A SINGH PA Unavailable Unavailable LETTIERE, A SINGH PA Unavailable Unavailable LETTIERE, A SINGH PA Unavailable Unavailable LETTIERE, A SINGH PA Unavailable Unavailable LETTIERE, A SINGH PA Unavailable Unavailable LETTIERE, A SINGH PA Unavailable Unavailable LETTIERE, A SINGH PA Unavailable Unavailable LETTIERE, A SINGH PA Unavailable Unavailable LETTIERE, A SINGH PA Unavailable Unavailable LETTIERE, A SINGH PA Unavailable Unavailable LETTIERE, A SINGH PA Unavailable Unavailable LETTIERE, A SINGH PA Unavailable Unavailable LETTIERE, A SINGH PA Unavailable Unavailable LETTIERE, A SINGH PA Unavailable Unavailable LETTIERE, A SINGH PA Unavailable Unavailable LETTIERE, A SINGH PA Unavailable Unavailable LETTIERE, A SINGH PA Unavailable Unavailable LETTIERE, A SINGH PA Unavailable Unavailable LETTIERE, A SINGH PA Unavailable Unavailable LETTIERE, A SINGH PA Unavailable Unavailable LETTIERE, A SINGH PA Unavailable Unavailable LETTIERE, A SINGH PA Unavailable Unavailable LETTIERE, A SINGH PA Unavailable Unavailable LETTIERE, A SINGH PA Unavailable Unavailable LETTIERE, A SINGH PA Unavailable Unavailable Re-disclosure Warning The records that you are about to access may contain information from federally-assisted alcohol or drug abuse programs. If such information is present, then the following federally mandated warning applies: This information has been disclosed to you from records protected by federal confidentiality rules (42 CFR part 2). The federal rules prohibit you from making any further disclosure of this information unless further disclosure is expressly permitted by the written consent of the person to whom it pertains or as otherwise permitted by 42 CFR part 2. A general authorization for the release of medical or other information is NOT sufficient for this purpose. The Federal rules restrict any use of the information to criminally investigate or prosecute any alcohol or drug abuse patient.The records that you are about to access may contain highly sensitive health information, the redisclosure of which is protected by Article 27-F of the [facility] Public Health law. If you continue you may have access to information: Regarding HIV / AIDS; Provided by facilities licensed or operated by the [facility] Office of Mental Health; or Provided by the [facility] Office for People With Developmental Disabilities. If such information is present, then the following [facility] mandated warning applies: This information has been disclosed to you from confidential records which are protected by state law. State law prohibits you from making any further disclosure of this information without the specific written consent of the person to whom it pertains, or as otherwise permitted by law. Any unauthorized further disclosure in violation of state law may result in a fine or usp sentence or both. A general authorization for the release of medical or other information is NOT sufficient authorization for further disc losure. Allergies and Adverse Reactions Type Description Substance Reaction Status Data Source(s ) Propensity to adverse reactions to substance nkda 24 HR Bupropion Hydrochloride 150 MG Extended Release Oral Tablet Active [facility] ([facility]) Family History Family Member Name Family Member Gender Family Member Status Date o f Status Description Data Source(s) Unknown Unknown Problem [facility] ([facility]) Unknown Unknown Problem [facility] ([facility]) All healthy Unknown Unknown Problem [facility] ([facility]) Unknown Unknown Problem [facility] ([facility]) Encounters Encounter Providers Location Date Indications Data Source(s ) Extended Individual Psychotherapy - 45 min Attender: Flako Romero [facility] 11/16/2020 06:00:00 AM EST - 11/16/2020 06:00:00 AM EST [facility] ([facility]) Attender: Misti Romero 11/16/2020 12:00:00 AM EST [facility] ([facility]) Outpatient Attender: Janelle ROMAN PA-C Physical Therapy 11/06/2020 01:30:00 PM EST [facility] ([facility]) Outpatient Attender: Saarh mesa 09/29/2020 07:00:00 AM EST [facility] ([facility]) Office Visit Attender: Janelle ROMAN PA-C Physical Therapy 09/14/2020 12:00:00 PM EST [facility] ([facility]) Outpatient Attender: JEANNA Lewis 1 11/11/2019 07:00:00 AM EST [facility] ([facility] ) Outpatient Attender: SINGH mesa 09/06/2020 12:10:00 PM EST [facility] ([facility]) Extended Individual Psychotherapy - 45 min Attender: Flako german Romero [facility] 08/17/2020 05:15:00 AM EDT - 08/17/2020 05:15:00 AM EDT [facility] ([facility]) Attender: Misti Romero 08/17/2020 12:00:00 AM EDT [facility] ([facility]) Outpatient Attender: JEANNA Lewis 1 08:00:00 AM EDT [facility] ([facility] ) Office Visit Attender: Janelle ROMAN PA-C Physical Therapy 08/08/2020 09:45:00 AM EDT [facility] ([facility]) Attender: Misti Romero 08/08/2020 12:00:00 AM EDT [facility] ([facility]) Extended Individual Psychotherapy - 45 min Attender: Flako Romero [facility] 07/31/2020 05:00:00 AM EDT - 07/31/2020 05:00:00 AM EDT [facility] ([facility]) Outpatient Attender: SINGH mesa 07/07/2020 03:15:00 PM EDT [facility] ([facility]) Attender: Misti Romero 07/06/2020 12:00:00 AM EDT [facility] ([facility]) Extended Individual Psychotherapy - 45 min Attender: Flako Romero [facility] 07/04/2020 05:00:00 AM EDT - 07/04/2020 05:00:00 AM EDT [facility] ([facility]) Outpatient Attender: Michael Ocasio MD Physical Therapy 07/03/2020 0 8:45:00 AM EDT [facility] ([facility]) Outpatient Attender: JEANNA Lewis 0 05/09/2020 01:40:00 PM EDT [facility] ([facility] ) Attender: Misti Romero 05/04/2020 12:00:00 AM EDT [facility] ([facility]) [id number]"Psychotherapy Attender: Misti Romero [facility] 05/03/2020 03:45:00 AM EDT - 05/03/2020 03:45:00 AM EDT [facility] ([facility]) Outpatient Attender: Michael Ocasio MD Physical Therapy 03/29/2020 1 1:15:00 AM EDT [facility] ([facility]) [id number]"Psychotherapy Attender: Misti Romero [facility] 03/20/2020 01:15:00 AM EDT - 03/20/2020 01:15:00 AM EDT [facility] ([facility]) Attender: Misti Romero 03/20/2020 12:00:00 AM EDT [facility] ([facility]) [id number]"Psychotherapy Attender: Misti Romero [facility] 02/24/2020 05:00:00 AM EDT - 02/24/2020 05:00:00 AM EDT [facility] ([facility]) Attender: Misti Romero 02/24/2020 12:00:00 AM EDT [facility] ([facility]) OFFICE OUTPATIENT NEW 30 MINUTES Attender: Michael Ocasio MD Physic al Therapy 02/08/2020 10:15:00 AM EDT [facility] ([facility]) [id number]"Psychotherapy Attender: Misti Romero [facility] 01/21/2020 05:15:00 AM EDT - 01/21/2020 05:15:00 AM EDT [facility] ([facility]) Attender: Misti Nick 01/21/2020 12:00:00 AM EDT [facility] ([facility]) Extended Individual Psychotherapy - 45 min Attender: Flako Romero [facility] 12/24/2019 05:15:00 AM EST - 12/24/2019 05:15:00 AM EST [facility] ([facility]) Attender: Misti Romero 12/24/2019 12:00:00 AM EST [facility] ([facility]) Attender: Mistidoris Romero 11/25/2019 12:00:00 AM EST [facility] ([facility]) Extended Individual Psychotherapy - 45 min Attender: Flako porter Nick [facility] 11/22/2019 05:15:00 AM EST - 11/22/2019 05:15:00 AM EST [facility] ([facility]) Extended Individual Psychotherapy - 45 min Attender: Flako porter Nick [facility] 10/22/2019 05:15:00 AM EST - 10/22/2019 05:15:00 AM EST [facility] ([facility]) Attender: Mistidoris Romero 10/22/2019 12:00:00 AM EST [facility] ([facility]) Outpatient Attender: Sharon mesa 10/18/2019 04:25:00 PM EST [facility] ([facility]) Immunizations Vaccine Date Status Description Data Source(s) This CVX code allows reporting of a vacc ination when formulation is unknown (for example, when recording a Influenza vaccination when noted on a vaccination card) 07/03/2020 09:04:00 AM EDT completed [facility] ([facility]) INFLUENZA VIRUS VACCINE QUADRIVAL (6 MOS AND UP)/PF 07/03/2020 12:00:00 AM EDT completed [facility] This CVX code allows reporting of a vacc ination when formulation is unknown (for example, when recording a Influenza vaccination when noted on a vaccination card) 10/01/2019 03:12:00 PM EST completed MEDEN T ([facility]) INFLUENZA VIRUS VACCINE QUADRIVAL (6 MOS AND UP)/PF 10/01/2019 12:00:00 AM EST completed [facility] Medications Medication Brand Name Start Date Product Form Dose Route Admi nistrative Instructions Pharmacy Instructions Status Indications Reaction Description Data Source(s) 4 mg 10/10/2020 12:00:00 AM EST capsule 90 TAKE ONE CAPSULE BY MOUTH THREE TIMES A DAY NEEDED FOR MUSCLE SPASMS TAKE ONE CAPSULE BY MOUTH THREE TIMES A DAY NEEDED FOR MUSCLE SPASMS SOLD: 10/12/2020 [facility] 4 mg 10/10/2020 12:00:00 AM EST capsule 90 TAKE ONE CAPSULE BY MOUTH THREE TIMES A DAY NEEDED FOR MUSCLE SPASMS TAKE ONE CAPSULE BY MOUTH THREE TIMES A DAY NEEDED FOR MUSCLE SPASMS SOLD: 11/10/2020 [facility] 100 mg 09/29/2020 12:00:00 AM EST capsule 14 TAKE ONE CAPSULE BY MOUTH TWICE A DAY FOR 7 DAYS TAKE ONE CAPSULE BY MOUTH TWICE A DAY FOR 7 DAYS SOLD: 09/29/2020 [facility] NITROFURANTOIN, MACROCRYSTALS 25 MG / Ni trofurantoin, Monohydrate 75 MG Oral Capsule Nitrofurantoin Monohydrate/Macrocrystals 09/29/2020 12:00:00 AM EST active [facility] ([facility] 125 mcg 09/27/2020 12:00:00 AM EST tablet 30 TAKE ONE TABLET BY MOUTH EVERY DAY TAKE ONE TABLET BY MOUTH EVERY DAY SOLD: 09/29/2020 [facility] 125 mcg 09/27/2020 12:00:00 AM EST tablet 30 TAKE ONE TABLET BY MOUTH EVERY DAY TAKE ONE TABLET BY MOUTH EVERY DAY SOLD: 11/02/2020 [facility] 200 mg 09/06/2020 12:00:00 AM EST tablet 6 TAKE ONE TABLET BY MOUTH THREE TIMES A DAY FOR 2 DAYS TAKE ONE TABLET BY MOUTH THREE TIMES A DAY FOR 2 DAYS SOLD: 09/29/2020 [facility] NITROFURANTOIN, MACROCRYSTALS 25 MG / Ni trofurantoin, Monohydrate 75 MG Oral Capsule [Macrobid] Macrobid 09/06/2020 12:00:00 AM EST ORAL completed [facility] ([facility]) Phenazopyridine hydrochloride 200 MG Delayed Release O ral Tablet Phenazopyridine HCL 09/06/2020 12:00:00 AM EST ORAL completed [facility] ([facility]) Lisinopril 10 MG Oral Tablet Lisinopril 08/09/2020 12:00:00 AM EDT ORAL active [facility] ([facility]) 10 mg 08/09/2020 12:00:00 AM EDT tablet 90 TAKE ONE TABLET BY MOUTH EVERY DAY AT NIGHT TAKE ONE TABLET BY MOUTH EVERY DAY AT NIGHT SOLD: 11/06/2020 [facility] 10 mg 08/09/2020 12:00:00 AM EDT tablet 90 TAKE ONE TABLET BY MOUTH EVERY DAY AT NIGHT TAKE ONE TABLET BY MOUTH EVERY DAY AT NIGHT SOLD: 08/11/2020 [facility] 100 mg 08/08/2020 12:00:00 AM EDT tablet 14 TAKE ONE TABLET BY MOUTH ONCE DAILY NEEDED FOR YEAST (3-7 DAYS) TAKE ONE TABLET BY MOUTH ONCE DAILY NEEDED FOR YEAST (3-7 DAYS) SOLD: 09/12/2020 [facility] 100 mg 08/08/2020 12:00:00 AM EDT tablet 14 TAKE ONE TABLET BY MOUTH ONCE DAILY NEEDED FOR YEAST (3-7 DAYS) TAKE ONE TABLET BY MOUTH ONCE DAILY NEEDED FOR YEAST (3-7 DAYS) SOLD: 08/09/2020 [facility] 100 mg 08/08/2020 12:00:00 AM EDT tablet 14 TAKE ONE TABLET BY MOUTH ONCE DAILY NEEDED FOR YEAST (3-7 DAYS) TAKE ONE TABLET BY MOUTH ONCE DAILY NEEDED FOR YEAST (3-7 DAYS) SOLD: 08/26/2020 [facility] Acetaminophen 325 MG / Hydrocodone Bitartrate 5 MG Ora l Tablet Hydrocodone-Acetaminophen 08/01/2020 12:00:00 AM EDT ORAL active [facility] ([facility]) 150 mg 07/31/2020 12:00:00 AM EDT tablet 2 TAKE 1 TABLET BY MOUTH ONCE TODAY THEN REPEAT IN 2 DAYS TAKE 1 TABLET BY MOUTH ONCE TODAY THEN REPEAT IN 2 DAY S SOLD: 07/31/2020 [facility] 5-325 mg 07/31/2020 12:00:00 AM EDT tablet 6 TAKE 1 TO 2 TABLETS BY MOUTH EVERY 4 TO 6 HOURS NEEDED FOR POST SURGICAL PAIN MAXIMUM DAILY DOSE = SIX TABLETS TAKE 1 TO 2 TABLETS BY MOUTH EVERY 4 TO 6 HOURS NEEDED FOR POST SURGICAL PAIN MAXIMUM DAILY DOSE = SIX TABLETS SOLD: 08/01/2020 [facility] Cephalexin 500 MG Oral Capsule CEPHALEXIN 07/07/2020 12:00:00 AM EDT capsule 40 TAKE TWO CAPSULES BY MOUTH TWICE A DAY FOR 10 DAYS DARRELL E TWO CAPSULES BY MOUTH TWICE A DAY FOR 10 DAYS SOLD: 07/07/2020 [facility] Cephalexin 500 MG Oral Tablet Cephalexin 07/07/2020 12:00:00 AM EDT ORAL completed [facility] ([facility]) 150 mg 06/08/2020 12:00:00 AM EDT tablet 2 TAKE 1 TABLET BY MOUTH ONCE TODAY THEN REPEAT IN 2 DAYS TAKE 1 TABLET BY MOUTH ONCE TODAY THEN REPEAT IN 2 DAY S SOLD: 06/08/2020 [facility] 125 mcg 05/30/2020 12:00:00 AM EDT tablet 30 TAKE ONE TABLET BY MOUTH EVERY DAY TAKE ONE TABLET BY MOUTH EVERY DAY SOLD: 06/03/2020 [facility] 125 mcg 05/30/2020 12:00:00 AM EDT tablet 30 TAKE ONE TABLET BY MOUTH EVERY DAY TAKE ONE TABLET BY MOUTH EVERY DAY SOLD: 08/30/2020 [facility] 125 mcg 05/30/2020 12:00:00 AM EDT tablet 30 TAKE ONE TABLET BY MOUTH EVERY DAY TAKE ONE TABLET BY MOUTH EVERY DAY SOLD: 07/31/2020 [facility] 125 mcg 05/30/2020 12:00:00 AM EDT tablet 30 TAKE ONE TABLET BY MOUTH EVERY DAY TAKE ONE TABLET BY MOUTH EVERY DAY SOLD: 07/03/2020 [facility] Alprazolam 0.25 MG Oral Tablet ALPRAZOLAM 05/16/2020 12:00:00 AM EDT tablet 30 TAKE 1 TABLET BY MOUTH TWICE A DAY NE EDED ANXIETY MAX DAILY DOSE = 2 TABLETS TAKE 1 TABLET BY MOUTH TWICE A DAY NE EDED ANXIETY MAX DAILY DOSE = 2 TABLETS SOLD: 05/16/2020 [facility] 4 mg 05/10/2020 12:00:00 AM EDT capsule 90 TAKE ONE CAPSULE BY MOUTH THREE TIMES A DAY NEEDED FOR MUSCLE SPASMS TAKE ONE CAPSULE BY MOUTH THREE TIMES A DAY NEEDED FOR MUSCLE SPASMS SOLD: 07/07/2020 [facility] 24 HR Bupropion Hydrochloride 300 MG Extended Release Oral T ablet BUPROPION HCL 05/10/2020 12:00:00 AM EDT tablet extended release 24 hr 90 TAKE ONE TABLET BY MOUTH EVERY MORNING TAKE ONE TABLET BY MOUTH EVERY MORNING SOLD: 11/06/2020 [facility] 4 mg 05/10/2020 12:00:00 AM EDT capsule 90 TAKE ONE CAPSULE BY MOUTH THREE TIMES A DAY NEEDED FOR MUSCLE SPASMS TAKE ONE CAPSULE BY MOUTH THREE TIMES A DAY NEEDED FOR MUSCLE SPASMS SOLD: 09/12/2020 [facility] 4 mg 05/10/2020 12:00:00 AM EDT capsule 90 TAKE ONE CAPSULE BY MOUTH THREE TIMES A DAY NEEDED FOR MUSCLE SPASMS TAKE ONE CAPSULE BY MOUTH THREE TIMES A DAY NEEDED FOR MUSCLE SPASMS SOLD: 06/08/2020 [facility] 300 mg 05/10/2020 12:00:00 AM EDT tablet extended release 24 hr 90 TAKE ONE TABLET BY MOUTH EVERY MORNING TAKE ONE TABLET BY MOUTH EVERY MORNING SOLD: 05/10/2020 [facility] 24 HR Bupropion Hydrochloride 300 MG Extended Release Oral T ablet BUPROPION HCL 05/10/2020 12:00:00 AM EDT tablet extended release 24 hr 90 TAKE ONE TABLET BY MOUTH EVERY MORNING TAKE ONE TABLET BY MOUTH EVERY MORNING SOLD: 08/09/2020 [facility] 4 mg 05/10/2020 12:00:00 AM EDT capsule 90 TAKE ONE CAPSULE BY MOUTH THREE TIMES A DAY NEEDED FOR MUSCLE SPASMS TAKE ONE CAPSULE BY MOUTH THREE TIMES A DAY NEEDED FOR MUSCLE SPASMS SOLD: 08/09/2020 [facility] 10 mg 05/10/2020 12:00:00 AM EDT capsule 90 TAKE ONE CAPSULE BY MOUTH EVERY DAY TAKE ONE CAPSULE BY MOUTH EVERY DAY SOLD: 05/10/2020 [facility] 4 mg 05/10/2020 12:00:00 AM EDT capsule 90 TAKE ONE CAPSULE BY MOUTH THREE TIMES A DAY NEEDED FOR MUSCLE SPASMS TAKE ONE CAPSULE BY MOUTH THREE TIMES A DAY NEEDED FOR MUSCLE SPASMS SOLD: 05/10/2020 [facility] 125 mcg 05/03/2020 12:00:00 AM EDT tablet 30 TAKE ONE TABLET BY MOUTH EVERY DAY TAKE ONE TABLET BY MOUTH EVERY DAY SOLD: 05/03/2020 [facility] 100 unit/mL 02/15/2020 12:00:00 AM EDT solution 40 DIRECTED 3ML EVERY 3 DAYS FOR PUMP DIRECTED 3ML EVERY 3 DAYS FOR PUMP SOLD: 05/08/2020 [facility] 100 unit/mL 02/15/2020 12:00:00 AM EDT solution 40 DIRECTED 3ML EVERY 3 DAYS FOR PUMP DIRECTED 3ML EVERY 3 DAYS FOR PUMP SOLD: 03/28/2020 [facility] 100 unit/mL 02/15/2020 12:00:00 AM EDT solution 40 DIRECTED 3ML EVERY 3 DAYS FOR PUMP DIRECTED 3ML EVERY 3 DAYS FOR PUMP SOLD: 02/18/2020 [facility] 100 unit/mL 02/15/2020 12:00:00 AM EDT solution 40 DIRECTED 3ML EVERY 3 DAYS FOR PUMP DIRECTED 3ML EVERY 3 DAYS FOR PUMP SOLD: 09/12/2020 [facility] [facility] 100 unit/mL 02/15/2020 12:00:00 AM EDT solution 40 DIRECTED 3ML EVERY 3 DAYS FOR PUMP DIRECTED 3ML EVERY 3 DAYS FOR PUMP SOLD: 07/30/2020 [facility] 100 unit/mL 02/15/2020 12:00:00 AM EDT solution 40 DIRECTED 3ML EVERY 3 DAYS FOR PUMP DIRECTED 3ML EVERY 3 DAYS FOR PUMP SOLD: 06/17/2020 [facility] 100 unit/mL 02/15/2020 12:00:00 AM EDT solution 40 DIRECTED 3ML EVERY 3 DAYS FOR PUMP DIRECTED 3ML EVERY 3 DAYS FOR PUMP SOLD: 10/24/2020 [facility] No Active Medications 02/08/2020 12:00:00 AM EDT completed [facility] ([facility]) 150 mg 01/20/2020 12:00:00 AM EDT tablet 2 TAKE 1 TABLET BY MOUTH ONCE TODAY THEN REPEAT IN 2 DAYS TAKE 1 TABLET BY MOUTH ONCE TODAY THEN REPEAT IN 2 DAY S SOLD: 01/20/2020 [facility] 0.4 % (w/w) 11/01/2019 12:00:00 AM EST ointment 30 APPLY TO AFFECTED AREA(S) TWO TIMES A DAY NEEDED APPLY TO AFFECTED AREA(S) TWO TIMES A DAY NEEDED SOLD: 11/13/2019 [facility] 4 mg 10/18/2019 12:00:00 AM EST tablet 14 TAKE ONE TABLET BY MOUTH EVERY DAY NEEDED FOR MUSCLE SPAMS TAKE ONE TABLET BY MOUTH EVERY DAY NE EDED FOR MUSCLE SPAMS SOLD: 10/18/2019 [facility] tizanidine 4 MG Oral Tablet Tizanidine HCL 10/18/2019 12:00:00 AM EST active [facility] ([facility]) Insurance Providers Payer name Policy type / Coverage type Policy ID Covered constitution party ID Covered constitution party's relationship to ordoñez Policy Ordoñez Plan Information [place] P[place] 302/307 [id number] SP [id number] [employer]BS B [id number] S [id number] [facility] I [id number] Self [id number] [employer] Health Maintenance Organization (HMO) [id number] Self [id number] BS [place] Trad/MX Commercial [id number] Self [id number] [place] PPO 302/307 [id number] SP [id number] [facility] COMMUNITY PLAN MCDHMO [id number] SP [id number] [facility](MCAID) O [id number] S [id number] [facility] COMMUNITY PLAN MCDHMO [id number] SP [id number] [facility] Maintenance Organization (HMO) Self [facility](MCAID) P [id number] S [id number] [employer] BCBS P [id number] S [id number] [facility] VAZQUEZ PLAN [id number] SP [id number] O BLUE [id number] SP [id number] Problems, Conditions, and Diagnoses Code Display Name Description Problem Type Effective Dates Data Source(s) G47.00 Insomnia, unspecified Unspecified Insomnia Disorder Co ndition 11/16/2020 12:00:00 AM EST [facility] ([facility]) E11.9 Type 2 diabetes mellitus without complic ations Type 2 diabetes mellitus without complications Condition 11/16/2020 12:00:00 AM EST [facility] ( [facility]) F41.1 Generalized anxiety disorder Generalized Anxiety Disor beau Condition 11/16/2020 12:00:00 AM EST [facility] ([facility]) F33.1 Major depressive disorder, recurrent, mo derate Major Depressive Disorder, Recurrent episode, Moderate Condition 11/16/2020 12:00:00 AM EST [facility] ([facility]) G47.00 Insomnia, unspecified Unspecified Insomnia Disorder Co ndition 08/17/2020 12:00:00 AM EDT [facility] ([facility]) E11.9 Type 2 diabetes mellitus without complic ations Type 2 diabetes mellitus without complications Condition 08/17/2020 12:00:00 AM EDT [facility] ( [facility]) Surgeries/Procedures Procedure Description Date Indications Data Source(s) Extended Individual Psychotherapy - 45 min 11/16/2020 12:00:00 AM EST - 11/16/2020 12:00:00 AM EST [facility] ([facility]) Extended Individual Psychotherapy - 45 min 1 12:00:00 AM EST [facility] ([facility]) RADEX SHOULDER COMPLETE MINIMUM 2 VIEWS 11/06/2020 12: 00:00 AM EST [facility] ([facility]) Extended Individual Psychotherapy - 45 min 08/17/2020 12:00:00 AM EDT - 08/17/2020 12:00:00 AM EDT [facility] ([facility]) Extended Individual Psychotherapy - 45 min 0 12:00:00 AM EDT [facility] ([facility]) Extended Individual Psychotherapy - 45 min 08/08/2020 12:00:00 AM EDT - 08/08/2020 12:00:00 AM EDT [facility] ([facility]) TENDON SHEATH INCISION 08/01/2020 12:00:00 AM EDT [facility] ([facility]) Extended Individual Psychotherapy - 45 min 0 12:00:00 AM EDT [facility] ([facility]) Extended Individual Psychotherapy - 45 min 07/06/2020 12:00:00 AM EDT - 07/06/2020 12:00:00 AM EDT [facility] ([facility]) Extended Individual Psychotherapy - 45 min 0 12:00:00 AM EDT [facility] ([facility]) [id number]"Psychotherapy 0 12:00:00 AM EDT - 05/04/2020 12:00:00 AM EDT [facility] ([facility]) [id number]"Psychotherapy 05/03/2020 12:00:00 AM EDT [facility] ([facility]) [id number]"Psychotherapy 0 12:00:00 AM EDT - 03/20/2020 12:00:00 AM EDT [facility] ([facility]) [id number]"Psychotherapy 03/20/2020 12:00:00 AM EDT [facility] ([facility]) [id number]"Psychotherapy 0 12:00:00 AM EDT - 02/24/2020 12:00:00 AM EDT [facility] ([facility]) [id number]"Psychotherapy 02/24/2020 12:00:00 AM EDT [facility] ([facility]) INJECTION 1 TENDON SHEATH/LIGAMENT APONEUROSIS 020 12:00:00 AM EDT [facility] ([facility] ) RADEX FINGR MINIMUM 2 VIEWS 02/08/2020 12:00:00 AM EDT [facility] ([facility] ) [id number]"Psychotherapy 0 12:00:00 AM EDT - 01/21/2020 12:00:00 AM EDT [facility] ([facility]) [id number]"Psychotherapy 01/21/2020 12:00:00 AM EDT [facility] ([facility]) Extended Individual Psychotherapy - 45 min 12/24/2019 12:00:00 AM EST - 12/24/2019 12:00:00 AM EST [facility] ([facility]) Extended Individual Psychotherapy - 45 min 0 12:00:00 AM EST [facility] ([facility]) Extended Individual Psychotherapy - 45 min 11/25/2019 12:00:00 AM EST - 11/25/2019 12:00:00 AM EST [facility] ([facility]) Extended Individual Psychotherapy - 45 min 0 12:00:00 AM EST [facility] ([facility]) Extended Individual Psychotherapy - 45 min 10/22/2019 12:00:00 AM EST - 10/22/2019 12:00:00 AM EST [facility] ([facility]) Extended Individual Psychotherapy - 45 min 9 12:00:00 AM EST [facility] ([facility]) Results ID Date Data Source [id number] 10/13/2020 09:57:00 AM EST [facility] ([facility]) Name Value Range Interpretation Code Description Data Darcie rce(s) Supporting Document(s) Glucose [Mass/volume] in Serum or Plasma 197 mg/dL 74-99 [facility] ([facility]) 100-125 mg/dL PRE-DIABETES/FASTING >126 mg/dL DIABETES/FASTING Urea nitrogen [Mass/volume] in Serum or Plasma 16 mg/dL 7-18 [facility] ([facility]) Sodium [Moles/volume] in Serum or Plasma 140 meq/L 136-145 [facility] ([facility]) Creatinine 0.7 mg/dL 0.6-1.3 [facility] Carbon dioxide, total [Moles/volume] in Serum or Plasma 25 meq/L 21 -32 [facility] ([facility]) Potassium [Moles/volume] in Serum or Plasma 4.9 meq/L 3.5-5.1 [facility] ([facility]) Chloride [Moles/volume] in Serum or Plasma 107 meq/L 98-107 [facility] ([facility]) Calcium [Mass/volume] in Serum or Plasma 8.6 mg/dL 8.5-10.1 [facility] ([facility]) Glomerular filtration rate/1.73 sq M pre dicted among non-blacks [Volume Rate/Area] in Serum or Plasma by Creatinine-based formula (MDRD) Laboratory test result [facility] ([facility] ) Glomerular filtration rate/1.73 sq M pre dicted among blacks [Volume Rate/Area] in Serum or Plasma by Creatinine-based formula (MDRD) Laboratory test result [facility] ([facility]) <content>CHRONIC KIDNEY DISEASE STAGING PER NKF</content>
<content></content>
<content>STAGE I & II GFR >= 60 NORMAL TO MILDLY DECREASED</content>
<content>STAGE III GFR 30-59 MODERATELY DECREASED</content>
<content>STAGE IV GFR 15-29 SEVERELY DECREASED</content>
<content>STAGE V GFR <15 VERY LITTLE GFR LEFT</content>
<content>ESRD GFR <15 ON GARMENT TURNER</content>
<content></content> ID Date Data Source [id number] 09/29/2020 09:14:00 AM EST [facility] ([facility]) Name Value Range Interpretation Code Description Data Darcie rce(s) Supporting Document(s) Bacteria identified in Urine by Culture Laboratory test result [facility] ([facility]) PT INFORMED, will see PCP ID Date Data Source [id number] 09/16/2020 12:00:00 AM EST [facility] Name Value Range Interpretation Code Description Data Darcie rce(s) Supporting Document(s) SARS coronavirus 2 RNA [facility] This lab was ordered by [facility] and rep orted by [facility]. ID Date Data Source [id number] 09/11/2020 08:15:00 AM EST [facility] Name Value Range Interpretation Code Description Data Darcie rce(s) Supporting Document(s) Urea nitrogen [Mass/volume] in Serum or Plasma 15 mg/dL 7-18 [facility] ([facility]) Glucose [Mass/volume] in Serum or Plasma 343 mg/dL 74-99 [facility] ([facility]) 100-125 mg/dL PRE-DIABETES/FASTING >126 mg/dL DIABETES/FASTING Creatinine 0.8 mg/dL 0.6-1.3 [facility] Potassium [Moles/volume] in Serum or Plasma 5.4 meq/L 3.5-5.1 [facility] ([facility] NOTE: RESULT VERIFIED. NO VISIBLE HEMOLYSIS. Sodium [Moles/volume] in Serum or Plasma 136 meq/L 136-145 [facility] Calcium [Mass/volume] in Serum or Plasma 8.9 mg/dL 8.5-10.1 [facility] ([facility] Chloride [Moles/volume] in Serum or Plasma 101 meq/L 98-107 [facility] ([facility] [facility] Carbon dioxide, total [Moles/volume] in Serum or Plasma 27 meq/L 21 -32 [facility] Glomerular filtration rate/1.73 sq M pre dicted among non-blacks [Volume Rate/Area] in Serum or Plasma by Creatinine-based formula (MDRD) Laboratory test result [facility] ([facility] ) Glomerular filtration rate/1.73 sq M pre dicted among blacks [Volume Rate/Area] in Serum or Plasma by Creatinine-based formula (MDRD) Laboratory test result [facility] ([facility]) <content>CHRONIC KIDNEY DISEASE STAGING PER NKF</content>
<content></content>
<content>STAGE I & II GFR >= 60 NORMAL TO MILDLY DECREASED</content>
<content>STAGE III GFR 30-59 MODERATELY DECREASED</content>
<content>STAGE IV GFR 15-29 SEVERELY DECREASED</content>
<content>STAGE V GFR <15 VERY LITTLE GFR LEFT</content>
<content>ESRD GFR <15 ON GARMENT TURNER</content>
<content></content> ID Date Data Source [id number] 09/06/2020 12:52:00 PM EST [facility] ([facility]) Name Value Range Interpretation Code Description Data Darcie rce(s) Supporting Document(s) Bacteria identified in Urine by Culture Laboratory test result [facility] ([facility]) rx macrobid/Pyridium ID Date Data Source [id number] 08/09/2020 07:35:00 AM EDT [facility] Name Value Range Interpretation Code Description Data Darcie rce(s) Supporting Document(s) Thyrotropin [Units/volume] in Serum or Plasma by Detec tion limit <= 0.05 mIU/L 2.91 uIU/mL 0.36-3.74 [facility] ([facility] ID Date Data Source [id number] 08/09/2020 07:35:00 AM EDT [facility] Name Value Range Interpretation Code Description Data Darcie rce(s) Supporting Document(s) Glucose mean value [Mass/volume] in Blood Estimated fr om glycated hemoglobin 255 mg/dL 60-110 [facility] ([facility] Hemoglobin A1c/Hemoglobin.total in Blood 10.5 % [facility] ([facility]) Lab Result Notes: Pre-Diabetes 5.7 - 6.4 % Diabetes = or > 6.5% ID Date Data Source [id number] 08/09/2020 07:35:00 AM EDT [facility] ([facility] Name Value Range Interpretation Code Description Data Darcie rce(s) Supporting Document(s) Hemoglobin A1c/Hemoglobin.total in Blood Laboratory test result [facility] ([facility] ID Date Data Source [id number] 08/01/2020 09:40:00 AM EDT [facility] ([facility] ) Name Value Range Interpretation Code Description Data Darcie rce(s) Supporting Document(s) Coronavirus 2019 Nasopharygeal Laboratory test result [facility] ([facility]) Comments: COVID TESTING/LOST TEST Laboratory test finding (navigational concept) Laboratory test result [facility] ([facility] ) A false negative result may occur if a s pecimen is improperly collected, transported or handled. False [...] pathogens. DISCLAIMER: Testing was performed using the [employer] SARS-CoV-2 test. This test was developed and its performance characteristics determined by [employer]. This test has not been FDA cleared [...] the authorization is terminated or revoked sooner. ID Date Data Source [id number] 05/09/2020 07:42:00 AM EDT [facility] ([facility]) Name Value Range Interpretation Code Description Data Darcie rce(s) Supporting Document(s) Microalbumin Urine 49.7 mg/L 1.3-20.0 [facility] ([facility]) Urine Creatinine 121.8 mg/dL 30.0-125.0 [facility] ([facility]) Microalb/Creat Ratio 40.8 ug/mg 0.0-30.0 [facility] ( [facility]) ID Date Data Source [id number] 05/09/2020 07:42:00 AM EDT [facility] ([facility]) Name Value Range Interpretation Code Description Data Darcie rce(s) Supporting Document(s) Thyrotropin [Units/volume] in Serum or Plasma by Detec tion limit <= 0.05 mIU/L 2.68 uIU/mL 0.36-3.74 [facility] ([facility] ) ID Date Data Source [id number] 05/09/2020 07:42:00 AM EDT [facility] ([facility]) Name Value Range Interpretation Code Description Data Darcie rce(s) Supporting Document(s) Cholesterol [Mass/volume] in Serum or Plasma 186 mg/dL 131-200 [facility] ([facility]) Cholesterol in HDL [Mass/volume] in Serum or Plasma 79 mg/dL 35-60 [facility] ([facility]) Cholesterol in LDL [Mass/volume] in Serum or Plasma by calcu lation 92 CALC 50-159 [facility] ([facility]) Triglyceride [Mass/volume] in Serum or Plasma 75 mg/dL 30-150 [facility] ([facility]) ID Date Data Source [id number] 05/09/2020 07:42:00 AM EDT [facility] ([facility]) Name Value Range Interpretation Code Description Data Darcie rce(s) Supporting Document(s) Glucose [Mass/volume] in Serum or Plasma 166 mg/dL 74-99 [facility] ([facility]) 100-125 mg/dL PRE-DIABETES/FASTING >126 mg/dL DIABETES/FASTING Sodium [Moles/volume] in Serum or Plasma 139 meq/L 136-145 [facility] ([facility]) Urea nitrogen [Mass/volume] in Serum or Plasma 22 mg/dL 7-18 [facility] ([facility]) Creatinine 0.5 mg/dL 0.6-1.3 [facility] Carbon dioxide, total [Moles/volume] in Serum or Plasma 25 meq/L 21 -32 [facility] ([facility]) Potassium [Moles/volume] in Serum or Plasma 4.2 meq/L 3.5-5.1 [facility] ([facility]) Chloride [Moles/volume] in Serum or Plasma 105 meq/L 98-107 [facility] ([facility]) Calcium [Mass/volume] in Serum or Plasma 8.4 mg/dL 8.5-10.1 [facility] ([facility]) Alkaline phosphatase isoenzyme [Units/volume] in Serum or Pl asma 91 mg/dL 46-116 [facility] ([facility]) Total Bilirubin 0.3 mg/dL 0.2-1.0 [facility] ([facility]) Alanine aminotransferase [Enzymatic activity/volume] in Seru m or Plasma 35 U/L 12-78 [facility] ([facility]) Aspartate aminotransferase [Enzymatic activity/volume] in Serum or Plasma 20 U/L 15-37 [facility] ([facility] ) Proteinase 3 Ab [Units/volume] in Serum 6.4 g/dL 6.4-8.2 [facility] ([facility]) A/G Ratio 1.06 CALC 1.00-1.90 [facility] [facility] Albumin [Mass/volume] in Serum or Plasma 3.3 g/dL 3.4-5.0 [facility] ([facility]) Glomerular filtration rate/1.73 sq M pre dicted among non-blacks [Volume Rate/Area] in Serum or Plasma by Creatinine-based formula (MDRD) Laboratory test result [facility] ([facility] ) Glomerular filtration rate/1.73 sq M pre dicted among blacks [Volume Rate/Area] in Serum or Plasma by Creatinine-based formula (MDRD) Laboratory test result [facility] ([facility]) <content>CHRONIC KIDNEY DISEASE STAGING PER NKF</content>
<content></content>
<content>STAGE I & II GFR >= 60 NORMAL TO MILDLY DECREASED</content>
<content>STAGE III GFR 30-59 MODERATELY DECREASED</content>
<content>STAGE IV GFR 15-29 SEVERELY DECREASED</content>
<content>STAGE V GFR <15 VERY LITTLE GFR LEFT</content>
<content>ESRD GFR <15 ON GARMENT TURNER</content>
<content></content> ID Date Data Source [id number] 05/09/2020 07:42:[address] [facility]) Name Value Range Interpretation Code Description Data Darcie rce(s) Supporting Document(s) Hemoglobin A1c/Hemoglobin.total in Blood 12.3 g/dL 4.8-5.6 [facility] ([facility]) Lab Result Notes: Pre-Diabetes 5.7 - 6.4 % Diabetes = or > 6.5% Glucose mean value [Mass/volume] in Blood Estimated fr om glycated hemoglobin 306 mg/dL 60-110 [facility] ([facility] ) ID Date Data Source [id number] 05/09/2020 07:42:[address] [facility]) Name Value Range Interpretation Code Description Data Darcie rce(s) Supporting Document(s) Leukocytes [#/volume] in Blood by Automated count 4.4 x10*3/UL 4.1-10 .9 [facility] ([facility] [facility] Hemoglobin [Mass/volume] in Blood 8.8 g/dL 12.0-18.0 [facility] ([facility]) NOTE: RESULT VERIFIED. Erythrocytes [#/volume] in Blood by Automated count 3.61 x10*6/UL 4.2 0-6.30 [facility] ([facility]) Hematocrit [Volume Fraction] of Blood by Automated count 26.9 % 3 7.0-51.0 [facility] ([facility]) MCV 74.4 fL 80.0-97.0 [facility] ([place] [facility] MCHC 32.9 g/dL 31.0-38.0 [facility] ([place] [facility] MCH 24.5 pg 26.0-32.0 [facility] ([place] [facility] Platelets [#/volume] in Blood by Automated count 318 x10*3/UL 140-440 [facility] ([facility]) MPV 8.6 FL 7.8-11.0 [facility] ([place] [facility] Erythrocyte distribution width [Ratio] by Automated count 14.1 % 11.6-13.7 [facility] ([facility]) Lymph % 32.3 % 10.0-58.5 [facility] ([place] [facility] Neut % 60.5 % 37.0-92.0 [facility] ([place] [facility] Mid % 7.2 % 1.7-9.3 [facility] [facility] Mid # 0.4 x10*3/UL 0.1-0.6 [facility] ([facility]) Lymph # 1.4 x10*3/UL 0.6-4.1 [facility] ([facility]) Neut # 2.6 x10*3/UL 2.0-7.8 [facility] ([facility]) Procedure Social History Code Duration Value Status Description Data Source(s ) Smoking 11/16/2020 12:00:00 AM EST Never smoker completed Never s moker [facility] ([facility]) Smoking 09/29/2020 12:00:00 AM EST Patient has never smoked co mpleted Patient has never smoked [facility] ([facility]) Smoking 08/17/2020 12:00:00 AM EDT Never smoker completed Never s moker [facility] ([facility]) Smoking 08/08/2020 12:00:00 AM EDT Never smoker completed Never s moker [facility] ([facility]) Smoking 07/06/2020 12:00:00 AM EDT Never smoker completed Never s moker [facility] ([facility]) Smoking 05/04/2020 12:00:00 AM EDT Never smoker completed Never s moker [facility] ([facility]) Smoking 03/20/2020 12:00:00 AM EDT Never smoker completed Never s moker [facility] ([facility]) Smoking 02/24/2020 12:00:00 AM EDT Never smoker completed Never s moker [facility] ([facility]) Smoking 01/21/2020 12:00:00 AM EDT Never smoker completed Never s moker [facility] ([facility]) Smoking 12/24/2019 12:00:00 AM EST Never smoker completed Never s moker [facility] ([facility]) Smoking 11/25/2019 12:00:00 AM EST Never smoker completed Never s moker [facility] ([facility]) Smoking 10/22/2019 12:00:00 AM EST Never smoker completed Never s moker [facility] ([facility]) Vital Signs ID Date Data Source UNK Name Value Range Interpretation Code Description Data Source(s) Body weight 168.00 [lb_av] 168.00 [lb_av] [facility] ([facility]) Body temperature 98.3 [degF] 98.3 [degF] [facility] ([facility]) Oxygen saturation in Arterial blood by Pulse oximetry 99 % 99 % [facility] ([facility]) Respiratory rate 16 /min 16 /min [facility] ( [facility]) Heart rate 98 /min 98 /min [facility] ([facility]) Diastolic blood pressure 93 mm[Hg] 93 mm[Hg] [facility] ([facility]) Systolic blood pressure 138 mm[Hg] 138 mm[Hg] M [facility] ([facility]) Body mass index (BMI) [Ratio] 32.5 kg/m2 32.5 k g/m2 [facility] [facility] Oxygen saturation in Arterial blood by Pulse oximetry 99 % 99 % [facility] ([facility]) Air Body weight 165.00 [lb_av] 165.00 [lb_av] [facility] ([facility]) Body height 59.75 [in_i] 59.75 [in_i] [facility] ([facility]) 4'11.75" Heart rate 96 /min 96 /min [facility] ([facility]) Diastolic blood pressure 80 mm[Hg] 80 mm[Hg] [facility] ([facility]) Systolic blood pressure 128 mm[Hg] 128 mm[Hg] [facility] ([facility]) Body mass index (BMI) [Ratio] 33.2 kg/m2 33.2 k g/m2 [facility] ([facility], [facility]) Body height 60 [in_i] 60 [in_i] [facility] ([facility], [facility]) 5'0" Body weight 170.00 [lb_av] 170.00 [lb_av] [facility] ([facility], [facility]) Body temperature 97.8 [degF] 97.8 [degF] [facility] ([facility]) Oxygen saturation in Arterial blood by Pulse oximetry 98 % 98 % [facility] ([facility], [facility]) Respiratory rate 16 /min 16 /min [facility] ( [facility], [facility]) Heart rate 102 /min 102 /min [facility] ([facility], [facility]) Diastolic blood pressure 93 mm[Hg] 93 mm[Hg] [facility] ([facility], [facility]) Systolic blood pressure 134 mm[Hg] 134 mm[Hg] [facility] [facility] ([facility], [facility]) Body mass index (BMI) [Ratio] 32.9 kg/m2 32.9 k g/m2 [facility] ([facility]) Body weight 167.00 [lb_av] 167.00 [lb_av] [facility] Body height 59.75 [in_i] 59.75 [in_i] [facility] ([facility]) 4'11.75" Heart rate 96 /min 96 /min [facility]) Diastolic blood pressure 90 mm[Hg] 90 mm[Hg] [facility] ([facility]) Systolic blood pressure 140 mm[Hg] 140 mm[Hg] M [facility]ENT ([facility]) Body mass index (BMI) [Ratio] 33.2 kg/m2 33.2 k g/m2 [facility] ([facility], [facility]) Body height 60 [in_i] 60 [in_i] [facility] ([facility]) 5'0" Body weight 170.00 [lb_av] 170.00 [lb_av] [facility] ([facility], [facility]) Body temperature 97.5 [degF] 97.5 [degF] [facility], [facility]) Oxygen saturation in Arterial blood by Pulse oximetry 98 % 98 % [facility], [facility]) Respiratory rate 17 /min 17 /min [facility] ( [facility], [facility]) Heart rate 97 /min 97 /min [facility] ([facility], [facility]) Diastolic blood pressure 84 mm[Hg] 84 mm[Hg] [facility] ([facility], [facility]) Systolic blood pressure 127 mm[Hg] 127 mm[Hg] [facility], [facility]) Body mass index (BMI) [Ratio] 33.7 kg/m2 33.7 k g/m2 [facility] ([facility]) Oxygen saturation in Arterial blood by Pulse oximetry 97 % 97 % [facility] ([facility]) Body weight 171.00 [lb_av] 171.00 [lb_av] [facility] T ([facility]) Body height 59.75 [in_i] 59.75 [in_i] [facility] ([facility]) 4'11.75" Heart rate 107 /min 107 /min [facility] ([facility]) Diastolic blood pressure 84 mm[Hg] 84 mm[Hg] [facility] ([facility]) Systolic blood pressure 128 mm[Hg] 128 mm[Hg] [facility] Body mass index (BMI) [Ratio] 30.8 kg/m2 30.8 k g/m2 [facility] ([facility]) Body weight 160.12 [lb_av] 160.12 [lb_av] [facility] ([facility]) Body height 60.5 [in_i] 60.5 [in_i] [facility] ([facility]) 5'0.50" Body temperature 97.9 [degF] 97.9 [degF] [facility] ([facility]) Body mass index (BMI) [Ratio] 31.7 kg/m2 31.7 k g/m2 [facility] ([facility], [facility]) Body height 61 [in_i] 61 [in_i] [facility] ([facility], [facility]) 5'1" Body weight 168.00 [lb_av] 168.00 [lb_av] [facility] T ([facility], [facility]) Body temperature 97.9 [degF] 97.9 [degF] [facility] ([facility], [facility]) Oxygen saturation in Arterial blood by Pulse oximetry 98 % 98 % [facility] ([facility], [facility]) Respiratory rate 16 /min 16 /min [facility] ( [facility], [facility]) Heart rate 89 /min 89 /min [facility] ([facility], [facility]) Diastolic blood pressure 89 mm[Hg] 89 mm[Hg] [facility] ([facility], [facility]) Systolic blood pressure 134 mm[Hg] 134 mm[Hg] [facility] ([facility], [facility])
--- OUTSIDE RECORDS SUMMARY | 2020-11-18 22:35 | CCD | Continuity of Care Document ---
Author Author Jessy MOURA Organization Unknown Address [address] [place] [address] Phone [phone] Care Team Providers Care Resistance Brazer Name Role Phone Lia Vargas LINNETTE AUTM [phone] Problems Description No Information Available Social History Type Date Description Comments Sex Unknown ETOH Use Denies alcohol use Tobacco Use Start: Unknown Patient has never smoked Smoking Status Reviewed: 09/06/20 Patient has never smoked Allergies, Adverse Reactions, Alerts Active Allergies Reaction Severity Comments Date Latex itchy, rash 05/09/2012 Inactive Allergies NKDA 05/09/2012 Ibuprofen ulcers 01/25/2016 Medications Active Medications SIG Qnty Indications Ordering Provide r Date Macrobid 100mg Capsules 1 tab by mouth twice a day x 7 days 14caps R30.0 Osman Steven JR. 09/06/2020 Phenazopyridine HCL 200mg Tablets take one tab by mouth three times a day x 2 days 6tabs R30.0 Mark Machado JR., M.D. 09/06/2020 Wellbutrin XL 300mg Tablets ER 24H R take one (1) tab daily 90tabs Mark Machado JR., M.D. 0 01/12/2016 Synthroid 25mcg Tablets po ad Unknown Humalog Mix 50/50 Unknown 0 000 Polysporin [id number]/GM Ointme nt last applied this morning Unknown Lisinopril 2.5mg Tablets Unknown History Medications Cephalexin 500mg Tablets take 2 tabs by mouth twice a day for 10 days 40tabs L03.211 Mark Machado JR., M.D. 07/07/2020 - 07/29/2019 Immunizations Description No Information Available Vital Signs Date Vital Result Comment 09/06/2020 12:48pm BP Systolic 134 mmHg BP Diastolic 93 mmHg Heart Rate 102 /min Respiratory Rate 16 /min O2 % BldC Oximetry 98 % Body Temperature 97.8 F Weight 170.00 lb Height 60 inches 5'0" BMI (Body Mass Index) 33.2 kg/m2 Pain Level 5 07/07/2020 3:14pm BP Systolic 127 mmHg BP Diastolic 84 mmHg Heart Rate 97 /min Respiratory Rate 17 /min O2 % BldC Oximetry 98 % Body Temperature 97.5 F Weight 170.00 lb Height 60 inches 5'0" BMI (Body Mass Index) 33.2 kg/m2 Pain Level 4 Results Test Acquired Date Facility Test Result H/L Range Note Laboratory test finding 09/06/2020 [facility] [address] [place] [address] [phone] Urine Culture FULL REPORT IN L <SEE [...]
--- OUTSIDE RECORDS SUMMARY | 2020-11-18 22:35 | CCD | Continuity of Care Document ---
Author Author Jessy PAYNE PA-C Organization Unknown Address [address] [place] [address] Phone [phone] Care Team Providers Care Buzzle Buffer Name Role Phone Lia Vargas RN Canp AUTM [phone] Problems Description No Information Available Social History [...] finding 08/01/2020 [facility] [address] [place] [address] [phone] Coronavirus 2019 Nasopharygeal <pending> 1 Sars [...] pathogens. DISCLAIMER: Testing was performed using the [facility] SARS-CoV-2 test. This test was developed and its performance characteristics determined by [facility]. This test has not been FDA cleared [...] sooner. Procedures Date Code Description Status 08/01/2020 85438 Tendon Sheath Incision (Eg Bulloch er Finger) Completed Medical Devices Description No Information Available Encounters Type Date Location Provider Dx Diagnosis Office Visit 08/08/2020 9:45a Ilia Payne PA-C Z47.89 Encounter for other orthopedic aftercare Office Visit 07/03/2020 8:45a Ilia Ocasio MD M65.311 Trigger thumb, right thumb Office Visit 03/29/2020 11:15a Ilia Ocasio MD M65.311 Trigger thumb, right thumb Assessments Date Code Description Provider 08/08/2020 Z47.89 Encounter for other orthopedic a ftercare Janelle Payne PA-C 08/01/2020 M65.311 Trigger thumb, right thumb Michael Ocasio MD 07/03/2020 M65.311 Trigger thumb, right thumb Michael Ocasio MD 03/29/2020 M65.311 Trigger thumb, right thumb Michael Ocasio MD Plan of Treatment Future Appointment(s):* 09/14/2020 1:00 pm - Janelle Payne PA-C at [place] 08/08/2020 - Janelle Payne PA-C* Z47.89 Encounter for other orthopedic aftercare* Follow up:* in 4-5 weeks with [facility] for right thumb recheck *telemed* Functional Status Description No Information Available Mental Status Description No Information Available Referrals Refer to Reason for Referral Status Appt Date Michael Ocasio MD SURGERY PER [facility] AT B[facility]S NO AUTH REQUIRED FOR RT THUMB SURGERY ([id number]) AND THEY HAVE A $150 COPAY TO SURGERY NT CALL REF #[id number] Created [facility], [address] [place] [address] [phone]
--- OUTSIDE RECORDS SUMMARY | 2020-11-18 22:35 | CCD | Continuity of Care Document ---
Author Author Jessy MOURA Organization Unknown Address [address] [place] [address] Phone [phone] Care Team Providers Care Pin Drafting Machine Tender Name Role Phone Lia Vargas LINNETTE AUTM [phone] Problems Description No Information Available Social History [...] Humalog Mix 50/50 Unknown 0 000 Polysporin 500-90893Rcmj/GM Ointme nt last applied this morning Unknown [...] H/L Range Note Laboratory test finding 09/06/[address] [address] [phone] Urine Culture <pending> Procedures Description No Information Available Medical Devices [...]
--- OUTSIDE RECORDS SUMMARY | 2020-11-18 22:35 | CCD | Continuity of Care Document ---
Author Author Jessy MOURA Organization Unknown Address [address] [place] [address] Phone [phone] Care Team Providers Care Hospital Admitting Clerk Name Role Phone Lia Vargas LINNETTE AUTM [phone] Problems Description No Information Available Social History [...] Humalog Mix 50/50 Unknown 0 000 Polysporin 500-36858Ndyy/GM Ointme nt last applied this morning Unknown [...] H/L Range Note Laboratory test finding 09/06/[address] [address] [phone] Urine Culture <pending> Procedures Description No Information [...]
--- OUTSIDE RECORDS SUMMARY | 2020-11-18 22:35 | CCD | Continuity of Care Document ---
Author Author Jessy WHITTINGTON PA Organization Unknown Address [address] [address] Phone [phone] Care Team Providers Care Electronic Semiconductor Processor Name Role Phone Lia Vargas AUTM [phone] Problems Description No Information Available Social History [...] mouth X 3 Days as Needed 7tabs Nkechi EstradaDavisRENEE 11/26/2017 Alprazolam 0.25mg Tablets one twice a [...] Given 07/03/2020 Influenza,Unspecified U-Flu Given 10/01/2019 Influenza,Unspecified 98476 Given 08/04/2018 Influenza Virus Vaccine, Quadrivalent (Cciiv4), Derived From Cell [id number] U-Flu Given 11/30/2017 Influenza,Unspecified Vital Signs Date Vital Result Comment 08/09/2020 8:01am BP Systolic 140 mmHg BP Diastolic 90 mmHg Heart Rate 96 /min Height 59.75 inches 4'11.75" Weight 167.00 lb BMI (Body Mass Index) 32.9 kg/m2 05/09/2020 1:31pm BP Systolic 128 mmHg BP Diastolic 84 mmHg Heart Rate 107 /min Height 59.75 inches 4'11.75" Weight 171.00 lb O2 % BldC Oximetry 97 % BMI (Body Mass Index) 33.7 kg/m2 Results Test Acquired Date Facility Test Result H/L Range Note A1c 08/09/2020 [facility] [employer] Refinery Operator: [place] [address] [phone] Hba1c 10.5 % High <5.7 1 Est Avg Glucose 255 mg/dL High 60 - 110 Laboratory test finding 08/09/2020 [facility] [employer] Refinery Operator: [place] [address] [phone] Thyroid Stimulating Hormone 2.91 uIU/mL 0.3 6 - 3.74 Complete Blood Count 05/09/2020 [facility] [employer] [employer] Operator: [place] [address] [phone] WBC 4.4 x10*3/UL 4.1 - 10.9 RBC [...] 2.6 x10*3/UL 2.0 - 7.8 A1c 05/09/2020 [facility] , Petroleum Refinery Operator: [place] [address] [phone] Hba1c 12.3 g/dL High 4.8 - 5.6 3 Est Avg Glucose 306 mg/dL High 60 - 110 Comprehensive Chem Profile 05/09/2020 [facility], Petroleum Refinery Operator: [place] [address] [phone] Glucose 166 mg/dL High 74 - 99 [...] 60 mL/min >60 5 Lipid Profile 05/09/2020 [facility] Petroleum Refinery Operator: Dr Mark Machado [place], [place] [id number] [phone] Cholesterol 186 mg/dL 131 - 200 Triglycerides 75 mg/dL 30 - 150 HDL Cholesterol 79 mg/dL High 35 - 60 LDL (Calculated) 92 CALC 50 - 159 Laboratory test finding 05/09/2020 [facility], Petroleum Refinery Operator: [place] [address] [phone] Thyroid Stimulating Hormone 2.68 uIU/mL 0.3 6 - 3.74 Microalbumin/Creatinine Urine 05/09/2020 [facility], Petroleum Refinery Operator: [place] [address] [phone] Microalbumin Urine 49.7 mg/L High 1.3 - [...] LITTLE GFR LEFT ESRD GFR <[address] MAGISTRATE Procedures Date Code Description Status 01/12/2018 [id number] Diabetic Retinal Eye Exam Comple len 11/03/2016 [id number] Mammogram Completed Medical Devices Description No Information Available Encounters Type Date Location Provider Dx Diagnosis Office Visit 08/09/2020 8:00a [facility] Wh[facility], [place] E10.9 Type 1 diabetes mellitus wit hout complications E03.9 Hypothyroidism, unspecified F41.9 Anxiety disorder, unspecifie d I10 Essential (primary) hyperten amber Office Visit 05/09/2020 1:40p [facility] SARA Cornell JR Z00.00 Encntr for general adult med ical exam w/o abnormal findings E10.9 Type 1 diabetes mellitus wit hout complications E03.9 Hypothyroidism, unspecified F41.9 Anxiety disorder, unspecifie d Z13.89 Encounter for screening for other disorder Assessments Date Code Description Provider 08/09/2020 E10.9 Type 1 diabetes mellitus without complications SARA Dejesus JR 08/09/2020 E03.9 Hypothyroidism, unspecified SARA Arredondo JR 08/09/2020 F41.9 Anxiety disorder, unspecified SARA Correa JR 08/09/2020 I10 Essential (primary) hypertension SARA Dejesus JR 05/09/2020 Z00.00 Encounter for genera adult medical examination without abnormal findings SARA Dejesus JR 05/09/2020 E10.9 Type 1 diabetes mellitus without complications SARA Dejesus JR 05/09/2020 E03.9 Hypothyroidism, unspecified SARA Arredondo JR 05/09/2020 F41.9 Anxiety disorder, unspecified SARA Correa JR 05/09/2020 Z13.89 Encounter for screening for othe r disorder SARA Dejesus JR Plan of Treatment Future Appointment(s):* 09/11/2020 8:00 am - SARA Dejesus JR at [facility] 08/09/2020 - SARA Dejesus JR* E10.9 Type 1 diabetes mellitus without complications* Comments:* A1c pending, expecting better results with increased pump function, continue current regimen, diet and exercise reinforced, she has not been as active as she would like. Weight loss would be favorable * E03.9 Hypothyroidism, unspecified* Comments:* TSH pending, will adjust medications as needed based on results, doing well with no symptoms * F41.9 Anxiety disorder, unspecified* Comments:* Doing well on medications as needed * I10 Essential (primary) hypertension* Comments:* Started on Lisinopril 10mg, RTC in 1 month for BP check and BMP. Pt will call with any symptoms of low blood pressures. Advised taking medication at night * All * New Medication:* Lisinopril 10 mg - 1 by mouth every day at night Functional Status Description No Information Available Mental Status Description No Information Available Referrals Description No Information Available
[2020-11-18 23:35] LABS: BASO % 0.3 % (0.0-1.0); HEMATOCRIT 33.6 % (36.0-47.0); HEMOGLOBIN 9.8 g/dl (12.0-15.5); LYMPH # 1.2 10^3/uL (1.5-5.0); LYMPH % 34.9 % (24.0-44.0); MEAN CORPUSCULAR HGB CONC 29.2 g/dl (32.0-36.5); MEAN CORPUSCULAR VOLUME 78.9 fl (80.0-96.0); MONO # 0.3 10^3/uL (0.0-0.8); MONO % 8.4 % (0.0-5.0); NEUTROPHILS # 1.9 10^3/uL (1.5-8.5); NEUTROPHILS % 55.8 % (36.0-66.0); PLATELET COUNT, AUTOMATED 338 10^3/uL (150-450); RED BLOOD COUNT 4.26 10^6/uL (4.00-5.40); WHITE BLOOD COUNT 3.5 10^3/uL (4.0-10.0)
[2020-11-18 23:40] LABS: VENOUS BASE EXCESS -5.1 (-2.0-2.0); VENOUS HCO3 20.2 MEQ/L (23.0-27.0); VENOUS O2 SATURATION 81.4 % (60.0-80.0); VENOUS PARTIAL PRESSURE CO2 38.5 mmHg (38.0-50.0); VENOUS PARTIAL PRESSURE O2 53.5 mmHg (30.0-50.0); VENOUS PH 7.338 UNITS (7.330-7.430); VENOUS TOTAL CO2 21.4 MEQ/L (24.0-28.0)
[2020-11-18 23:44] LABS: OSMOLALITY SERUM 330 MOSM/KG (275-295)
--- NOTE | 2020-11-19 00:04 | REPVR ---
PROCEDURE INFORMATION: Exam: XR Chest, 1 View Exam date and time: 11/18/2020 11:46 PM Age: 45 years old Clinical indication: Prodcutive cough TECHNIQUE: Imaging protocol: XR of the chest Views: 1 view. COMPARISON: CR Ribs uni W-PA CHEST ONLY 03/26/2018 9:29 AM FINDINGS: Tubes, catheters and devices: There are surgical clips in the epigastric region. Lungs: Unremarkable. No consolidation. No pulmonary edema. Pleural space: Unremarkable. No pleural effusion or pneumothorax is identified. Heart/Mediastinum: Unremarkable. No cardiomegaly. Bones/joints: Unremarkable. IMPRESSION: No acute findings. Electronically signed by: Jelani Cadena On 11/19/2020 00:03:49 AM
[2020-11-19 00:06] LABS: ACETONE/KETONE 2.18 MG/DL (<2.81); ALBUMIN 3.9 GM/DL (3.2-5.2); ALT/SGPT 29 U/L (12-78); BILIRUBIN,DIRECT < 0.1 MG/DL (0.0-0.2); BILIRUBIN,TOTAL 0.1 MG/DL (0.2-1.0); FREE T4 1.14 NG/DL (0.76-1.46); LIPASE 165 U/L (73-393); THYROID STIMULATING HORMONE 0.387 uIU/ML (0.358-3.740); TOTAL PROTEIN 7.7 GM/DL (6.4-8.2)
[2020-11-19 00:32] LABS: HEMOGLOBIN A1c 10.4 %
--- OUTSIDE RECORDS SUMMARY | 2020-11-19 00:41 | CCD ---
Author Author [facility] Organization [facility] Address Unknown Phone Unavailable Care Team Providers Care Directory Compiler Name Role Phone Campanaro, Mare Sharon PA [...] Unavailable Campanaro, Mare Sharon PA Unavailable Unavailable [employer], PA-C Unavailable Unavailabl e [employer], PA-C Unavailable Unavailabl e [employer], PA-C Unavailable Unavailabl e Fish, [facility], PA-C Unavailable Unavailabl e Fish, [facility], PA-C Unavailable Unavailabl e Fish, [facility], PA-C Unavailable Unavailabl e Fish, [facility], PA-C Unavailable Unavailabl e Fish, [facility], PA-C Unavailable Unavailabl e Fish, [facility], PA-C Unavailable Unavailabl e Fish, [facility], PA-C Unavailable Unavailabl e Fish, [facility], PA-C Unavailable Unavailabl e Fish, [facility], PA-C Unavailable Unavailabl e Fish, [facility], PA-C Unavailable Unavailabl e Fish, [facility], PA-C Unavailable Unavailabl e Fish, [facility], PA-C Unavailable Unavailabl e Fish, [facility], PA-C Unavailable Unavailabl e Fish, [facility], PA-C Unavailable Unavailabl e Fish, [facility], PA-C Unavailable Unavailabl e Fish, [facility], PA-C Unavailable Unavailabl e Fish, [facility], PA-C Unavailable Unavailabl e Fish, [facility], PA-C Unavailable Unavailabl e Fish, [facility], PA-C Unavailable Unavailabl e Fish, [facility], PA-C Unavailable Unavailabl e Fish, [facility], PA-C Unavailable Unavailabl e Fish, [facility], PA-C Unavailable Unavailabl e Fish, [facility], PA-C Unavailable Unavailabl e Fish, [facility], PA-C Unavailable Unavailabl e Fish, [facility], PA-C Unavailable Unavailabl e Fish, [facility], PA-C Unavailable Unavailabl e Fish, [facility], PA-C Unavailable Unavailabl e Fish, [facility], PA-C Unavailable Unavailabl e Fish, [facility], PA-C Unavailable Unavailabl e Fish, [facility], PA-C Unavailable Unavailabl e Alisha BOYCE JR, [...] Sadaf Ocasio MD Unavailable Unavailable Ocasio, Sadaf Rdoriguez MD Unavailable Unavailable Ocasio, Sadaf Rodriguez MD [...] A SINGH PA Unavailable Unavailable LETTIERE, A SNIGH PA Unavailable Unavailable LETTIERE, A SINGH PA [...] is protected by Article 27-F of the [facility] Public Health law. If you continue you may have access to information: Regarding HIV / AIDS; Provided by facilities licensed or operated by the [facility] Office of Mental Health; or Provided by the [facility] Office for People With Developmental Disabilities. If such information is present, then the following [facility] mandated warning applies: This information has been [...] law may result in a fine or long-term sentence or both. A general authorization for the release of medical or other information is NOT sufficient authorization for further disc losure. Allergies and Adverse Reactions Type Description Substance Reaction Status Data Source(s ) Propensity to adverse reactions to substance nkda 24 HR Bupropion Hydrochloride 150 MG Extended Release Oral Tablet Active [facility] ([facility]) Family History Family Member Name Family Member [...] Psychotherapy - 45 min Attender: Flako Romero [facility] 11/16/2020 06:00:00 AM EST - 11/16/2020 06:00:00 AM EST [facility] ([facility]) Attender: Misti Romero 11/16/2020 12:00:00 AM EST [facility] ([facility]) Outpatient Attender: Janelle ROMAN PA-C Physical Therapy 11/06/2020 01:30:00 PM EST [facility] ([facility]) Outpatient Attender: Sarah mesa 09/29/2020 07:00:00 AM EST [facility] ([facility]) Office Visit Attender: Janelle ROMAN PA-C Physical Therapy 09/14/2020 12:00:00 PM EST [facility] ([facility]) Outpatient Attender: JEANNA Lewis 1 11/11/2019 07:00:00 AM EST [facility] ([facility] ) Outpatient Attender: SINGH mesa 09/06/2020 12:10:00 PM EST [facility] ([facility]) Extended Individual Psychotherapy - 45 min Attender: Flako Romero [facility] 08/17/2020 05:15:00 AM EDT - 08/17/2020 05:15:00 AM EDT [facility] ([facility]) Attender: Misti Romero 08/17/2020 12:00:00 AM EDT [facility] ([facility]) Outpatient Attender: JEANNA Swan 08:00:00 AM EDT [facility] ([facility] ) Office Visit Attender: Janelle ROMAN PA-C Physical Therapy 08/08/2020 09:45:00 AM EDT [facility] ([facility]) Attender: Misti Romero 08/08/2020 12:00:00 AM EDT [facility] ([facility]) Extended Individual Psychotherapy - 45 min Attender: Flako Romero [facility] 07/31/2020 05:00:00 AM EDT - 07/31/2020 05:00:00 AM EDT [facility] ([facility]) Outpatient Attender: SINGH mesa 07/07/2020 03:15:00 PM EDT [facility] ([facility]) Attender: Misti Romero 07/06/2020 12:00:00 AM EDT [facility] ([facility]) Extended Individual Psychotherapy - 45 min Attender: Flkao Romero [facility] 07/04/2020 05:00:00 AM EDT - 07/04/2020 05:00:00 AM EDT [facility] ([facility]) Outpatient Attender: Michael Ocasio MD Physical Therapy 07/03/2020 0 8:45:00 AM EDT [facility] ([facility]) Outpatient Attender: JEANNA Lewis 0 05/09/2020 01:40:00 PM EDT [facility] ([facility] ) Attender: Misti Romero 05/04/2020 12:00:00 AM EDT [facility] ([facility]) [id number]"Psychotherapy Attender: Misti Romero [facility] 05/03/2020 03:45:00 AM EDT - 05/03/2020 03:45:00 AM EDT [facility] ([facility]) Outpatient Attender: Michael Ocasio MD Physical Therapy 03/29/2020 1 1:15:00 AM EDT [facility] ([facility]) [id number]"Psychotherapy Attender: Misti Romero [facility] 03/20/2020 01:15:00 AM EDT - 03/20/2020 01:15:00 AM EDT [facility] ([facility]) Attender: Misti Romero 03/20/2020 12:00:00 AM EDT [facility] ([facility]) [id number]"Psychotherapy Attender: Misti Romero [facility] 02/24/2020 05:00:00 AM EDT - 02/24/2020 05:00:00 AM EDT [facility] ([facility]) Attender: Misti Romero 02/24/2020 12:00:00 AM EDT [facility] ([facility]) OFFICE OUTPATIENT NEW 30 MINUTES Attender: Michael Ocasio MD Physic al Therapy 02/08/2020 10:15:00 AM EDT [facility] ([facility]) [id number]"Psychotherapy Attender: Misti Romero [facility] 01/21/2020 05:15:00 AM EDT - 01/21/2020 05:15:00 AM EDT [facility] ([facility]) Attender: Misti Nick 01/21/2020 12:00:00 AM EDT [facility] ([facility]) Extended Individual Psychotherapy - 45 min Attender: Flako Romero [facility] 12/24/2019 05:15:00 AM EST - 12/24/2019 05:15:00 AM EST [facility] ([facility]) Attender: Misti Romero 12/24/2019 12:00:00 AM EST [facility] ([facility]) Attender: Mistidoris Romero 11/25/2019 12:00:00 AM EST [facility] ([facility]) Extended Individual Psychotherapy - 45 min Attender: Flako porter Nick [facility] 11/22/2019 05:15:00 AM EST - 11/22/2019 05:15:00 AM EST [facility] ([facility]) Extended Individual Psychotherapy - 45 min Attender: Flako porter Nick [facility] 10/22/2019 05:15:00 AM EST - 10/22/2019 05:15:00 AM EST [facility] ([facility]) Attender: Mistidoris Romero 10/22/2019 12:00:00 AM EST [facility] ([facility]) Outpatient Attender: Sharon mesa 10/18/2019 04:25:00 PM EST [facility] ([facility]) Immunizations Vaccine Date Status Description Data Source(s) This CVX code allows reporting of a vacc ination when formulation is unknown (for example, when recording a Influenza vaccination when noted on a vaccination card) 07/03/2020 09:04:00 AM EDT completed [facility] ([facility]) INFLUENZA VIRUS VACCINE QUADRIVAL (6 MOS AND UP)/PF 07/03/2020 12:00:00 AM EDT completed [facility] This CVX code allows reporting of a vacc ination when formulation is unknown (for example, when recording a Influenza vaccination when noted on a vaccination card) 10/01/2019 03:12:00 PM EST completed [facility] ([facility]) INFLUENZA VIRUS VACCINE QUADRIVAL (6 MOS [...] Monohydrate/Macrocrystals 09/29/2020 12:00:00 AM EST active [facility] 125 mcg 09/27/2020 12:00:00 AM EST tablet 30 TAKE ONE TABLET BY MOUTH EVERY DAY TAKE ONE TABLET BY MOUTH EVERY DAY SOLD: 09/29/2020 [facility] 125 mcg 09/27/2020 12:00:00 AM EST tablet 30 TAKE ONE TABLET BY MOUTH EVERY DAY TAKE ONE TABLET BY MOUTH EVERY DAY SOLD: 11/02/2020 [facility] 200 mg 09/06/2020 12:00:00 AM EST tablet 6 TAKE ONE TABLET BY MOUTH THREE TIMES A DAY FOR 2 DAYS TAKE ONE TABLET BY MOUTH THREE TIMES A DAY FOR 2 DAYS SOLD: 09/29/2020 [facility] NITROFURANTOIN, MACROCRYSTALS 25 MG / Ni trofurantoin, Monohydrate 75 MG Oral Capsule [Macrobid] Macrobid 09/06/2020 12:00:00 AM EST ORAL completed [facility] ([facility], [facility]) Phenazopyridine hydrochloride 200 MG Delayed Release O ral Tablet Phenazopyridine HCL 09/06/2020 12:00:00 AM EST ORAL completed [facility] ([facility], [facility]) Lisinopril 10 MG Oral Tablet Lisinopril 08/09/2020 12:00:00 AM EDT ORAL active [facility] ([facility]) 10 mg 08/09/2020 12:00:00 AM EDT [...] 08/01/2020 12:00:00 AM EDT ORAL active [facility] ([facility]) 150 mg 07/31/2020 12:00:00 [...] 07/07/2020 12:00:00 AM EDT ORAL completed [facility] ([facility], [facility]) 150 mg 06/08/2020 12:00:00 AM EDT tablet [...] 02/08/2020 12:00:00 AM EDT completed [facility] ([facility]) 150 mg 01/20/2020 12:00:00 AM [...] NE EDED FOR MUSCLE SPAMS SOLD: 10/18/2019 [facility] tizanidine 4 MG Oral Tablet Tizanidine HCL 10/18/2019 12:00:00 AM EST active [facility] ([facility], [facility]) Insurance Providers Payer name Policy type / Coverage type Policy ID Covered green party ID Covered green party's relationship to ordoñez Policy Ordoñez Plan Information [place] P[place] 302/307 [id number] SP [id number] [employer] B [id number] S [id number] [facility] I [id number] Self [id number] [employer] Health Maintenance Organization (HMO) [id number] Self [id number] [facility] Trad/MX Commercial [id number] Self [id number] [employer] [place] PPO 302/307 [id number] SP [id number] [facility]LY [facility] COMMUNITY PLAN MCDHMO [id number] SP [id number] [facility](MCAID) O [id number] S [id number] FOR[facility]LY [facility] COMMUNITY PLAN MCDHMO [id number] SP [id number] [facility] Health Maintenance Organization (HMO) Self [facility](MCAID) P [id number] S [id number] [employer] P [id number] S [id number] [facility] VAZQUEZ PLAN [id number] SP [id number] O BLUE [id number] SP [id number] Problems, Conditions, and Diagnoses Code Display Name Description Problem Type Effective Dates Data Source(s) G47.00 Insomnia, unspecified Unspecified Insomnia Disorder Co ndition 11/16/2020 12:00:00 AM EST [facility] ([facility]) E11.9 Type 2 diabetes mellitus without complic ations Type 2 diabetes mellitus without complications Condition 11/16/2020 12:00:00 AM EST [facility] ( [facility]) F41.1 Generalized anxiety disorder Generalized Anxiety Disor beau Condition 11/16/2020 12:00:00 AM EST [facility] ([facility]) F33.1 Major depressive disorder, recurrent, mo derate Major Depressive Disorder, Recurrent episode, Moderate Condition 11/16/2020 12:00:00 AM EST [facility] ([facility]) G47.00 Insomnia, unspecified Unspecified Insomnia Disorder Co ndition 08/17/2020 12:00:00 AM EDT [facility] ([facility]) E11.9 Type 2 diabetes mellitus without complic ations Type 2 diabetes mellitus without complications Condition 08/17/2020 12:00:00 AM EDT [facility] ( [facility]) Surgeries/Procedures Procedure Description Date Indications Data Source(s) Extended Individual Psychotherapy - 45 min 11/16/2020 12:00:00 AM EST - 11/16/2020 12:00:00 AM EST [facility] ([facility]) Extended Individual Psychotherapy - 45 min 12:00:00 AM EST [facility] ([facility]) RADEX SHOULDER COMPLETE MINIMUM 2 VIEWS 11/06/2020 12: 00:00 AM EST [facility] ([facility]) Extended Individual Psychotherapy - 45 min 08/17/2020 12:00:00 AM EDT - 08/17/2020 12:00:00 AM EDT [facility] ([facility]) Extended Individual Psychotherapy - 45 min 0 12:00:00 AM EDT [facility] ([facility]) Extended Individual Psychotherapy - 45 min 08/08/2020 12:00:00 AM EDT - 08/08/2020 12:00:00 AM EDT [facility] ([facility]) TENDON SHEATH INCISION 08/01/2020 12:00:00 AM EDT [facility] ([facility]) Extended Individual Psychotherapy - 45 min 0 12:00:00 AM EDT [facility] ([facility]) Extended Individual Psychotherapy - 45 min 07/06/2020 12:00:00 AM EDT - 07/06/2020 12:00:00 AM EDT [facility] ([facility]) Extended Individual Psychotherapy - 45 min 0 12:00:00 AM EDT [facility] ([facility]) [id number]"Psychotherapy 0 12:00:00 AM EDT - 05/04/2020 12:00:00 AM EDT [facility] ([facility]) [id number]"Psychotherapy 05/03/2020 12:00:00 AM EDT [facility] ([facility]) [id number]"Psychotherapy 0 12:00:00 AM EDT - 03/20/2020 12:00:00 AM EDT [facility] ([facility]) [id number]"Psychotherapy 03/20/2020 12:00:00 AM EDT [facility] ([facility]) [id number]"Psychotherapy 0 12:00:00 AM EDT - 02/24/2020 12:00:00 AM EDT [facility] ([facility]) [id number]"Psychotherapy 02/24/2020 12:00:00 AM EDT [facility] ([facility]) INJECTION 1 TENDON SHEATH/LIGAMENT APONEUROSIS 020 12:00:00 AM EDT [facility] ([facility] RADEX FINGR MINIMUM 2 VIEWS 02/08/2020 12:00:00 AM EDT [facility] ([facility] ) [id number]"Psychotherapy 0 12:00:00 AM EDT - 01/21/2020 12:00:00 AM EDT [facility] ([facility]) [id number]"Psychotherapy 01/21/2020 12:00:00 AM EDT [facility] ([facility]) Extended Individual Psychotherapy - 45 min 12/24/2019 12:00:00 AM EST - 12/24/2019 12:00:00 AM EST [facility] ([facility]) Extended Individual Psychotherapy - 45 min 0 12:00:00 AM EST [facility] ([facility]) Extended Individual Psychotherapy - 45 min 11/25/2019 12:00:00 AM EST - 11/25/2019 12:00:00 AM EST [facility] ([facility]) Extended Individual Psychotherapy - 45 min 0 12:00:00 AM EST [facility] ([facility]) Extended Individual Psychotherapy - 45 min 10/22/2019 12:00:00 AM EST - 10/22/2019 12:00:00 AM EST [facility] ([facility]) Extended Individual Psychotherapy - 45 min 9 12:00:00 AM EST [facility] ([facility]) Results ID Date Data Source [id number] 10/13/2020 09:57:00 AM EST [facility] ([facility]) Name Value Range Interpretation Code Description Data Darcie rce(s) Supporting Document(s) Glucose [Mass/volume] in Serum or Plasma 197 mg/dL 74-99 [facility] ([facility]) 100-125 mg/dL PRE-DIABETES/FASTING >126 mg/dL DIABETES/FASTING Urea nitrogen [Mass/volume] in Serum or Plasma 16 mg/dL 7-18 [facility] ([facility]) Sodium [Moles/volume] in Serum or Plasma 140 meq/L 136-145 [facility] ([facility]) Creatinine 0.7 mg/dL 0.6-1.3 [facility] Carbon dioxide, total [Moles/volume] in Serum or Plasma 25 meq/L 21 -32 [facility] ([facility]) Potassium [Moles/volume] in Serum or Plasma 4.9 meq/L 3.5-5.1 [facility] ([facility]) Chloride [Moles/volume] in Serum or Plasma 107 meq/L 98-107 [facility] ([facility]) Calcium [Mass/volume] in Serum or Plasma 8.6 mg/dL 8.5-10.1 [facility] ([facility]) Glomerular filtration rate/1.73 sq M pre dicted among non-blacks [Volume Rate/Area] in Serum or Plasma by Creatinine-based formula (MDRD) Laboratory test result [facility] ([facility] ) Glomerular filtration rate/1.73 sq M pre dicted among blacks [Volume Rate/Area] in Serum or Plasma by Creatinine-based formula (MDRD) Laboratory test result [facility] ([facility]) <content>CHRONIC KIDNEY DISEASE STAGING PER NKF</content>
<content></content>
<content>STAGE I & II GFR >= 60 NORMAL TO MILDLY DECREASED</content>
<content>STAGE III GFR 30-59 MODERATELY DECREASED</content>
<content>STAGE IV GFR 15-29 SEVERELY DECREASED</content>
<content>STAGE V GFR <15 VERY LITTLE GFR LEFT</content>
<content>ESRD GFR <15 ON AUDIO ENGINEER</content>
<content></content> ID Date Data Source [id number] 09/29/2020 09:14:00 AM EST [facility] ([facility]) Name Value Range Interpretation Code Description Data Darcie rce(s) Supporting Document(s) Bacteria identified in Urine by Culture Laboratory test result [facility] ([facility]) PT INFORMED, will see PCP ID Date Data Source [id number] 09/16/2020 12:00:00 AM EST [facility] Name Value Range Interpretation Code Description Data Darcie rce(s) Supporting Document(s) SARS coronavirus 2 RNA [facility] This lab was ordered by [facility] and rep orted by [facility]. ID Date Data Source [id number] 09/11/2020 08:15:00 AM EST [facility] ([facility] Name Value Range Interpretation Code Description Data Darcie rce(s) Supporting Document(s) Urea nitrogen [Mass/volume] in Serum or Plasma 15 mg/dL 7-18 [facility] ([facility]) Glucose [Mass/volume] in Serum or Plasma 343 mg/dL 74-99 [facility] ([facility]) 100-125 mg/dL PRE-DIABETES/FASTING >126 mg/dL DIABETES/FASTING Creatinine 0.8 mg/dL 0.6-1.3 [facility] Potassium [Moles/volume] in Serum or Plasma 5.4 meq/L 3.5-5.[facility] NOTE: RESULT VERIFIED. NO VISIBLE HEMOLYSIS. Sodium [Moles/volume] in Serum or Plasma 136 meq/L 136-145 [facility] ([facility] Calcium [Mass/volume] in Serum or Plasma 8.9 mg/dL 8.5-10.1 [facility] ([facility] Chloride [Moles/volume] in Serum or Plasma 101 meq/L 98-107 [facility] ([facility] Carbon dioxide, total [Moles/volume] in Serum or Plasma 27 meq/L 21 -32 [facility] ([facility] Glomerular filtration rate/1.73 sq M pre dicted among non-blacks [Volume Rate/Area] in Serum or Plasma by Creatinine-based formula (MDRD) Laboratory test result [facility] ([facility] ) Glomerular filtration rate/1.73 sq M pre dicted among blacks [Volume Rate/Area] in Serum or Plasma by Creatinine-based formula (MDRD) Laboratory test result [facility] ([facility]) <content>CHRONIC KIDNEY DISEASE STAGING PER NKF</content>
<content></content>
<content>STAGE I & II GFR >= 60 NORMAL TO MILDLY DECREASED</content>
<content>STAGE III GFR 30-59 MODERATELY DECREASED</content>
<content>STAGE IV GFR 15-29 SEVERELY DECREASED</content>
<content>STAGE V GFR <15 VERY LITTLE GFR LEFT</content>
<content>ESRD GFR <15 ON AUDIO ENGINEER</content>
<content></content> ID Date Data Source [id number] 09/06/2020 12:52:00 PM EST [facility] ([facility]) Name Value Range Interpretation Code Description Data Darcie rce(s) Supporting Document(s) Bacteria identified in Urine by Culture Laboratory test result [facility] ([facility]) rx macrobid/Pyridium ID Date Data Source [id number] 08/09/2020 07:35:00 AM EDT [facility] ([facility] Name Value Range Interpretation Code Description Data Darcie rce(s) Supporting Document(s) Thyrotropin [Units/volume] in Serum or Plasma by Detec tion limit <= 0.05 mIU/L 2.91 uIU/mL 0.36-3.74 [facility] ([facility] ID Date Data Source [id number] 08/09/2020 07:35:[address] [facility] Name Value Range Interpretation Code Description Data Darcie rce(s) Supporting Document(s) Glucose mean value [Mass/volume] in Blood Estimated fr om glycated hemoglobin 255 mg/dL 60-110 [facility] ([facility] Hemoglobin A1c/Hemoglobin.total in Blood 10.5 % [facility] ([facility]) Lab Result Notes: Pre-Diabetes 5.7 - 6.4 % Diabetes = or > 6.5% ID Date Data Source [id number] 08/09/2020 07:35:00 AM EDT [facility] ([facility] Name Value Range Interpretation Code Description Data Darcie rce(s) Supporting Document(s) Hemoglobin A1c/Hemoglobin.total in Blood Laboratory test result [facility] ([facility] ID Date Data Source [id number] 08/01/2020 09:40:00 AM EDT [facility] ([facility] Name Value Range Interpretation Code Description Data Darcie rce(s) Supporting Document(s) Coronavirus 2019 Nasopharygeal Laboratory test result [facility] ([facility]) Comments: COVID TESTING/LOST TEST Laboratory test finding (navigational concept) Laboratory test result [facility] ([facility]) A false negative result may occur if [...] pathogens. DISCLAIMER: Testing was performed using the [employer] SARS-CoV-2 test. This test was developed and its performance characteristics determined by [employer]. This test has not been FDA cleared [...] or revoked sooner. ID Date Data Source [id number] 05/09/2020 07:42:00 AM EDT [facility] ([facility]) Name Value Range Interpretation Code Description Data Darcie rce(s) Supporting Document(s) Microalbumin Urine 49.7 mg/L 1.3-20.0 [facility] ([facility]) Urine Creatinine 121.8 mg/dL 30.0-125.0 [facility] ([facility]) Microalb/Creat Ratio 40.8 ug/mg 0.0-30.0 [facility] ( [facility]) ID Date Data Source [id number] 05/09/2020 07:42:00 AM EDT [facility] ([facility]) Name Value Range Interpretation Code Description Data Darcie rce(s) Supporting Document(s) Thyrotropin [Units/volume] in Serum or Plasma by Detec tion limit <= 0.05 mIU/L 2.68 uIU/mL 0.36-3.74 [facility] ([facility] ) ID Date Data Source [id number] 05/09/2020 07:42:00 AM EDT [facility] ([facility]) Name Value Range Interpretation Code Description Data Darcie rce(s) Supporting Document(s) Cholesterol [Mass/volume] in Serum or Plasma 186 mg/dL 131-200 [facility] ([facility]) Cholesterol in HDL [Mass/volume] in Serum or Plasma 79 mg/dL 35-60 [facility] ([facility]) Cholesterol in LDL [Mass/volume] in Serum or Plasma by calcu lation 92 CALC 50-159 [facility] ([facility]) Triglyceride [Mass/volume] in Serum or Plasma 75 mg/dL 30-150 [facility] ([facility]) ID Date Data Source [id number] 05/09/2020 07:42:00 AM EDT [facility] ([facility]) Name Value Range Interpretation Code Description Data Darcie rce(s) Supporting Document(s) Glucose [Mass/volume] in Serum or Plasma 166 mg/dL 74-99 [facility] ([facility]) 100-125 mg/dL PRE-DIABETES/FASTING >126 mg/dL DIABETES/FASTING Sodium [Moles/volume] in Serum or Plasma 139 meq/L 136-145 [facility] ([facility]) Urea nitrogen [Mass/volume] in Serum or Plasma 22 mg/dL 7-18 [facility] ([facility]) Creatinine 0.5 mg/dL 0.6-1.3 [facility] Carbon dioxide, total [Moles/volume] in Serum or Plasma 25 meq/L 21 -32 [facility] ([facility]) Potassium [Moles/volume] in Serum or Plasma 4.2 meq/L 3.5-5.1 [facility] ([facility]) Chloride [Moles/volume] in Serum or Plasma 105 meq/L 98-107 [facility] ([facility]) Calcium [Mass/volume] in Serum or Plasma 8.4 mg/dL 8.5-10.1 [facility] ([facility]) Alkaline phosphatase isoenzyme [Units/volume] in Serum or Pl asma 91 mg/dL 46-116 [facility] ([facility]) Total Bilirubin 0.3 mg/dL 0.2-1.0 [facility] ([facility]) Alanine aminotransferase [Enzymatic activity/volume] in Seru m or Plasma 35 U/L 12-78 [facility] ([facility]) Aspartate aminotransferase [Enzymatic activity/volume] in Serum or Plasma 20 U/L 15-37 [facility] ([facility] ) Proteinase 3 Ab [Units/volume] in Serum 6.4 g/dL 6.4-8.2 [facility] ([facility]) A/G Ratio 1.06 CALC 1.00-1.90 [facility]) Albumin [Mass/volume] in Serum or Plasma 3.3 g/dL 3.4-5.0 [facility] ([facility]) Glomerular filtration rate/1.73 sq M pre dicted among non-blacks [Volume Rate/Area] in Serum or Plasma by Creatinine-based formula (MDRD) Laboratory test result [facility] ([facility] ) Glomerular filtration rate/1.73 sq M pre dicted among blacks [Volume Rate/Area] in Serum or Plasma by Creatinine-based formula (MDRD) Laboratory test result [facility] ([facility]) <content>CHRONIC KIDNEY DISEASE STAGING PER NKF</content>
<content></content>
<content>STAGE I & II GFR >= 60 NORMAL TO MILDLY DECREASED</content>
<content>STAGE III GFR 30-59 MODERATELY DECREASED</content>
<content>STAGE IV GFR 15-29 SEVERELY DECREASED</content>
<content>STAGE V GFR <15 VERY LITTLE GFR LEFT</content>
<content>ESRD GFR <15 ON AUDIO ENGINEER</content>
<content></content> ID Date Data Source [id number] 05/09/2020 07:42:00 AM EDT [facility]) Name Value Range Interpretation Code Description Data Darcie rce(s) Supporting Document(s) Hemoglobin A1c/Hemoglobin.total in Blood 12.3 g/dL 4.8-5.6 [facility] ([facility]) Lab Result Notes: Pre-Diabetes 5.7 - 6.4 % Diabetes = or > 6.5% Glucose mean value [Mass/volume] in Blood Estimated fr om glycated hemoglobin 306 mg/dL 60-110 [facility] ([facility] ) ID Date Data Source [id number] 05/09/2020 07:42:00 AM EDT [facility]) Name Value Range Interpretation Code Description Data Darcie rce(s) Supporting Document(s) Leukocytes [#/volume] in Blood by Automated count 4.4 x10*3/UL 4.1-10 .9 [facility] Hemoglobin [Mass/volume] in Blood 8.8 g/dL 12.0-18.0 [facility] ([facility]) NOTE: RESULT VERIFIED. Erythrocytes [#/volume] in Blood by Automated count 3.61 x10*6/UL 4.2 0-6.30 [facility] ([facility]) Hematocrit [Volume Fraction] of Blood by Automated count 26.9 % 3 7.0-51.0 [facility] ([facility]) MCV 74.4 fL 80.0-97.0 [facility]) MCHC 32.9 g/dL 31.0-38.0 [facility]) MCH 24.5 pg 26.0-32.0 [facility]) Platelets [#/volume] in Blood by Automated count 318 x10*3/UL 140-440 [facility] ([facility]) MPV 8.6 FL 7.8-11.0 [facility]) Erythrocyte distribution width [Ratio] by Automated count 14.1 % 11.6-13.7 [facility] ([facility]) Lymph % 32.3 % 10.0-58.5 [facility] Neut % 60.5 % 37.0-92.0 [facility] Mid % 7.2 % 1.7-9.3 [facility] Mid # 0.4 x10*3/UL 0.1-0.6 [facility] ([facility]) Lymph # 1.4 x10*3/UL 0.6-4.1 [facility] ([facility]) Neut # 2.6 x10*3/UL 2.0-7.8 [facility] ([facility]) Procedure Social History Code Duration Value Status Description Data Source(s ) Smoking 11/16/2020 12:00:00 AM EST Never smoker completed Never s moker [facility] ([facility]) Smoking 09/29/2020 12:00:00 AM EST Patient has never smoked co mpleted Patient has never smoked [facility] ([facility], [facility]) Smoking 08/17/2020 12:00:00 AM EDT Never smoker completed Never s moker [facility] ([facility]) Smoking 08/08/2020 12:00:00 AM EDT Never smoker completed Never s moker [facility] ([facility]) Smoking 07/06/2020 12:00:00 AM EDT Never smoker completed Never s moker [facility] ([facility]) Smoking 05/04/2020 12:00:00 AM EDT Never smoker completed Never s moker [facility] ([facility]) Smoking 03/20/2020 12:00:00 AM EDT Never smoker completed Never s moker [facility] ([facility]) Smoking 02/24/2020 12:00:00 AM EDT Never smoker completed Never s moker [facility] ([facility]) Smoking 01/21/2020 12:00:00 AM EDT Never smoker completed Never s moker [facility] ([facility]) Smoking 12/24/2019 12:00:00 AM EST Never smoker completed Never s moker [facility] ([facility]) Smoking 11/25/2019 12:00:00 AM EST Never smoker completed Never s moker [facility] ([facility]) Smoking 10/22/2019 12:00:00 AM EST Never smoker completed Never s moker [facility] ([facility]) Vital Signs ID Date Data Source UNK Name Value Range Interpretation Code Description Data Source(s) Body weight 168.00 [lb_av] 168.00 [lb_av] [facility] ([facility]) Body temperature 98.3 [degF] 98.3 [degF] [facility] ([facility]) Oxygen saturation in Arterial blood by Pulse oximetry 99 % 99 % [facility] ([facility]) Respiratory rate 16 /min 16 /min [facility] ( [facility]) Heart rate 98 /min 98 /min [facility] ([facility]) Diastolic blood pressure 93 mm[Hg] 93 mm[Hg] [facility] ([facility]) Systolic blood pressure 138 mm[Hg] 138 mm[Hg] M [facility] ([facility]) Body mass index (BMI) [Ratio] 32.5 kg/m2 32.5 k g/m2 [facility] Oxygen saturation in Arterial blood by Pulse oximetry 99 % 99 % [facility] ([facility]) Air Body weight 165.00 [lb_av] 165.00 [lb_av] [facility] ([facility]) Body height 59.75 [in_i] 59.75 [in_i] [facility] ([facility]) 4'11.75" Heart rate 96 /min 96 /min [facility]) Diastolic blood pressure 80 mm[Hg] 80 mm[Hg] [facility] Systolic blood pressure 128 mm[Hg] 128 mm[Hg] [facility] ([facility]) Body mass index (BMI) [Ratio] 33.2 kg/m2 33.2 k g/m2 [facility] [place], [facility]) Body height 60 [in_i] 60 [in_i] [facility] ([facility], [facility]) 5'0" Body weight 170.00 [lb_av] 170.00 [lb_av] [facility] ([facility] [place], [facility]) Body temperature 97.8 [degF] 97.8 [degF] [facility] ([facility], [facility]) Oxygen saturation in Arterial blood by Pulse oximetry 98 % 98 % [facility] [place], [facility]) Respiratory rate 16 /min 16 /min [facility] ( [facility] [place], [facility]) Heart rate 102 /min 102 /min [facility] ([facility] [place], [facility]) Diastolic blood pressure 93 mm[Hg] 93 mm[Hg] [facility] ([facility], [facility]) Systolic blood pressure 134 mm[Hg] 134 mm[Hg] [facility] ([facility] [place], [facility]) Body mass index (BMI) [Ratio] 32.9 kg/m2 32.9 k g/m2 [facility] ([facility]) Body weight 167.00 [lb_av] 167.00 [lb_av] [facility] ([facility]) Body height 59.75 [in_i] 59.75 [in_i] [facility] 4'11.75" Heart rate 96 /min 96 /min [facility] Diastolic blood pressure 90 mm[Hg] 90 mm[Hg] [facility] ([facility]) Systolic blood pressure 140 mm[Hg] 140 mm[Hg] [facility] Body mass index (BMI) [Ratio] 33.2 kg/m2 33.2 k g/m2 [facility] ([facility] [place], [facility]) Body height 60 [in_i] 60 [in_i] [facility] ([facility]) 5'0" Body weight 170.00 [lb_av] 170.00 [lb_av] [facility] ([facility] [place], [facility]) Body temperature 97.5 [degF] 97.5 [degF] [facility] [place], [facility]) Oxygen saturation in Arterial blood by Pulse oximetry 98 % 98 % [facility], [facility]) Respiratory rate 17 /min 17 /min [facility] ( [facility] [place], [facility]) Heart rate 97 /min 97 /min [facility] ([facility] [place], [facility]) Diastolic blood pressure 84 mm[Hg] 84 mm[Hg] [facility]) Systolic blood pressure 127 mm[Hg] 127 mm[Hg] [facility]) Body mass index (BMI) [Ratio] 33.7 kg/m2 33.7 k g/m2 [facility]) Oxygen saturation in Arterial blood by Pulse oximetry 97 % 97 % [facility] ([facility]) Body weight 171.00 [lb_av] 171.00 [lb_av] [facility] ([facility]) Body height 59.75 [in_i] 59.75 [in_i] [facility] ([facility]) 4'11.75" Heart rate 107 /min 107 /min [facility] ([facility]) Diastolic blood pressure 84 mm[Hg] 84 mm[Hg] [facility] ([facility]) Systolic blood pressure 128 mm[Hg] 128 mm[Hg] M [facility] ([facility]) Body mass index (BMI) [Ratio] 30.8 kg/m2 30.8 k g/m2 [facility] ([facility]) Body weight 160.12 [lb_av] 160.12 [lb_av] [facility] ([facility]) Body height 60.5 [in_i] 60.5 [in_i] [facility] ([facility]) 5'0.50" Body temperature 97.9 [degF] 97.9 [degF] [facility] ([facility]) Body mass index (BMI) [Ratio] 31.7 kg/m2 31.7 k g/m2 [facility] ([facility], [facility]) Body height 61 [in_i] 61 [in_i] [facility] ([facility] [place], [facility]) 5'1" Body weight 168.00 [lb_av] 168.00 [lb_av] [facility] ([facility], [facility]) Body temperature 97.9 [degF] 97.9 [degF] [facility] ([facility] [place], [facility]) Oxygen saturation in Arterial blood by Pulse oximetry 98 % 98 % [facility] [place], [facility]) Respiratory rate 16 /min 16 /min [facility] ( [facility] [place], [facility]) Heart rate 89 /min 89 /min [facility], [facility]) Diastolic blood pressure 89 mm[Hg] 89 mm[Hg] [facility] ([facility] [place], [facility]) Systolic blood pressure 134 mm[Hg] 134 mm[Hg] [facility] ([facility], [facility])
[2020-11-19 01:29] VITALS: O2SAT 97
--- NOTE | 2020-11-19 01:39 | REPVR ---
PROCEDURE INFORMATION: Exam: CT Head Without Contrast Exam date and time: 11/19/2020 1:24 AM Age: 45 years old Clinical indication: Altered mental status/memory loss and other: Acting different" per family. TECHNIQUE: Imaging protocol: Computed tomography of the head without contrast. Radiation optimization: All CT scans at this facility use at least one of these dose optimization techniques: automated exposure control; mA and/or kV adjustment per patient size (includes targeted exams where dose is matched to clinical indication); or iterative reconstruction. COMPARISON: CT Head without contrast 04/08/2017 9:52 AM FINDINGS: Brain: There is no CT evidence for an acute large vessel territorial infarct. No acute intracranial hemorrhage is seen. No mass, mass effect, midline shift, or herniation is noted. The cortical gyration pattern, basal ganglia, thalami, brainstem, and cerebellum are normal in appearance. Cerebral ventricles: Normal. No hydrocephalus. Bones/joints: The skull is intact. No suspicious osteolytic or osteoblastic lesion. Paranasal sinuses: The imaged portions of the sinuses are well-aerated. No air-fluid levels are noted in the sinuses. Mastoid air cells: Clear. Soft tissues: Unremarkable. No soft tissue fluid collection. There are dystrophic calcifications involving the cartilaginous portion of both external ears. IMPRESSION: No acute intracranial abnormality. Electronically signed by: Jelani Cadena On 11/19/2020 01:38:35 AM
[2020-11-19 02:14] LABS: FERRITIN 15 NG/ML (8-252); IRON (FE) 16 UG/DL (50-170); PERCENT SATURATION 2.8 % (13.2-45.0); TOTAL IRON BINDING CAPACITY 574 UG/DL (250-450)
[2020-11-19] MEDS ORDERED: FERR325T3 PO (02:23)
[2020-11-19 02:37] VITALS: BP 129/72
[2020-11-20 10:14] LABS: FOLATE 13.3 NG/ML; VITAMIN B12 LEVEL 249 PG/ML
== END 2020-11-19 02:40 | disposition home or self-care (01) ==
LOC: M ED 22:20
DX: U07.1 COVID-19 (principal); E10.65 Type 1 diabetes mellitus with hyperglycemia; D50.9 Iron deficiency anemia, unspecified; I10 Essential (primary) hypertension; E03.9 Hypothyroidism, unspecified; F41.9 Anxiety disorder, unspecified; F33.9 Major depressive disorder, recurrent, unspecified; Z91.040 Latex allergy status; Z79.4 Long term (current) use of insulin; Z79.899 Other long term (current) drug therapy

== ENCOUNTER → 2021-02-07 | Outpatient (CLI) | payer BC ==
[~2021-02-07] MED LIST changes: +BUPR150T12 PO; -BUPR150T4 PO; +LISI10TA22; +TIZA4CAP
--- NOTE | 2021-02-07 12:49 | REP ---
INDICATION: RIGHT THUMB ENCOUNTER FOR AFTER CARE. COMPARISON: Radiographs 12/01/2020. TECHNIQUE: Multiple sequences obtained in the axial, coronal and sagittal planes prior to and following the intravenous administration of 15 mL ProHance. FINDINGS: The osseous structures of the right 1st digit demonstrate normal bone marrow signal with no bone marrow edema or occult fracture. There is no marrow enhancement. Collateral ligaments are intact. Flexor and extensor tendons are intact with no evidence of tenosynovitis. No joint effusion or ganglion cyst is seen. No soft tissue enhancement is seen. There is no fluid collection in the soft tissues. IMPRESSION: Negative MRI right 1st digit as discussed above. <Electronically signed by Chava Harris > 02/07/21 [id number]
== END ==
LOC: M PLARAD 10:00
PROVIDERS: ATTEND Physician Assistant Surgical
DX: Z47.89 Encounter for other orthopedic aftercare (principal)

== ENCOUNTER → 2021-02-09 | Outpatient (CLI) | payer BC ==
--- NOTE | 2021-02-09 12:59 | REP ---
INDICATION: OA, LT SHOULDER. COMPARISON: None. TECHNIQUE: Coronal oblique T1, T2 fat sat, sagittal oblique T2 fat sat, axial T2 fat sat, gradient echo. FINDINGS: Rotator cuff: No evidence of tear. There is mild supraspinatus tendinopathy/tendinitis. Acromioclavicular joint: There are mild hypertrophic degenerative changes of the acromioclavicular joint. Acromion: Type 2 Biceps Tendon: In bicipital groove, with mild surrounding fluid. Hill Sach's deformity: None. Deltoid muscle: No abnormal signal. Biceps labral complex: Intact. Labrum: No tear. Cartilage: No defects. Bone marrow: There is no bone marrow edema or occult fracture. Joint fluid: No effusion. IMPRESSION: Mild supraspinatus tendinopathy/tendinitis. No rotator cuff tear or labral tear. Mild hypertrophic degenerative changes acromioclavicular joint with a type 2 acromion. <Electronically signed by Chava Harris > 02/09/21 [id number]
== END ==
LOC: M PLARAD 09:03
PROVIDERS: ATTEND Physician Assistant Surgical
DX: M75.82 Other shoulder lesions, left shoulder (principal); M89.412 Other hypertrophic osteoarthropathy, left shoulder; M19.012 Primary osteoarthritis, left shoulder

== ENCOUNTER → 2021-03-12 | Outpatient (CLI) | payer BC ==
[~2021-03-12] MED LIST changes: +LIDOCAINE 1% MDV 20ML VIAL As Ordered ONE; +TRIAMCINOLONE ACETONIDE SUSP 40 MG/ML VIAL (J3301) As Ordered ONE
--- NOTE | 2021-03-12 18:50 | REP ---
INDICATION: BICIPITAL TENDONITIS LEFT SHOULDER. COMPARISON: None. TECHNIQUE: The procedure was performed by YELENA Min, under the direct supervision of Dr. Harris. The risks and benefits of the procedure were explained to the patient and an informed consent was obtained both verbally and written. Directly prior to the start of the procedure a formal time-out was completed in the procedure room. FINDINGS: Using ultrasound guidance the left biceps tendon was localized. The skin was prepped and draped in a sterile fashion. Under ultrasound guidance a 25 gauge needle was inserted and advanced into the left biceps tendon sheath, as the needle was advanced to the biceps tendon sheath approximately 2 mL's of lidocaine 10 milligrams/milliliter was used as a local anesthetic. Three mL of a solution containing 2 mL 1% lidocaine 10 mg/ml and 1 mL Kenalog 40 milligrams/milliliter was injected into the joint space. The needle was removed and hemostasis was achieved. IMPRESSION: 1. Ultrasound-guided left biceps tendon sheath injection. <Electronically signed by Leydi Padilla > 03/12/21 [id number] <Electronically signed by Chava Harris > 03/12/21 [id number]
== END ==
LOC: M RADPRO 10:57
PROVIDERS: ATTEND Physician Assistant Surgical
DX: M75.22 Bicipital tendinitis, left shoulder (principal)
CPT/HCPCS: 20550; 76942; J3301

== ENCOUNTER → 2021-04-27 | Outpatient (REF) | payer BC ==
[~2021-04-27] MED LIST changes: -LIDOCAINE 1% MDV 20ML VIAL As Ordered ONE; -TRIAMCINOLONE ACETONIDE SUSP 40 MG/ML VIAL (J3301) As Ordered ONE
== END ==
LOC: M WUC 11:03
PROVIDERS: ATTEND Nurse Practitioner Family
DX: N39.0 Urinary tract infection, site not specified (principal)

== ENCOUNTER → 2021-05-05 | Outpatient (REF) | payer BC ==
[2021-05-05 19:03] LABS: APPEARANCE, URINE HAZY (CLEAR); BACTERIA, URINE AUTO 1+ (NEGATIVE); BILIRUBIN, URINE AUTO NEGATIVE (NEGATIVE); BLOOD, URINE BLOOD NEGATIVE (NEGATIVE); COLOR, URINE AMBER (YELLOW); GLUCOSE, URINE (UA) AUTO 3+ mg/dL (NEGATIVE); KETONE, URINE AUTO NEGATIVE (NEGATIVE); LEUKOCYTE ESTERASE, URINE AUTO 1+ (NEGATIVE); MUCUS, URINE SMALL (NEGATIVE); NITRITE, URINE AUTO POSITIVE (NEGATIVE); PROTEIN, URINE AUTO 1+ mg/dL (NEGATIVE); RBC, URINE AUTO 7 /HPF (0-3); SQUAMOUS EPITHELIAL CELL UR AU 0 /HPF (0-6); WBC, URINE AUTO 161 /HPF (0-3)
== END ==
LOC: M LAB REF 18:38
PROVIDERS: ATTEND Physician Assistant Medical
DX: R30.0 Dysuria (principal)

== ENCOUNTER → 2021-08-03 | Outpatient (CLI) | payer BC ==
[~2021-08-03] MED LIST changes: +LIDOCAINE 1% MDV 20ML VIAL As Ordered ONE; +methylPREDNISolone SUSP 40MG/ML 1ML VIAL (DEPO MEDROL) As Ordered ONE
--- NOTE | 2021-08-03 15:37 | REP ---
INDICATION: BICIPITAL TENDINITIS. COMPARISON: None. TECHNIQUE: The procedure was performed under the direct supervision of Dr. Mann. The risks and benefits of the procedure were explained to the patient and informed consent was obtained. The left bicep tendon sheath was localized using ultrasound guidance. The skin was prepped and draped in a sterile fashion. 1% lidocaine was used as a local anesthetic. Using ultrasound guidance a 25 gauge needle was inserted and advanced into the tendon sheath. 5 mL of a solution containing 3 mL of 1% lidocaine and 2 mL of Depo-Medrol 40 mg was injected. The needle was then removed. The patient tolerated the procedure well and there were no immediate complications. FINDINGS: None IMPRESSION: Ultrasound guidance for left bicep tendon sheath injection. <Electronically signed by Robert Kohli > 08/03/21 1514 <Electronically signed by Patel Mann > 08/03/21 [id number]
== END ==
LOC: M IRPRO 10:51
PROVIDERS: ATTEND Physician Assistant Surgical
DX: M75.22 Bicipital tendinitis, left shoulder (principal)
CPT/HCPCS: 20550; 76942; J1030

== ENCOUNTER → 2021-11-09 | Outpatient (CLI) | payer BC ==
[~2021-11-09] MED LIST changes: +TRIAMCINOLONE ACETONIDE SUSP 40 MG/ML VIAL (J3301) As Ordered ONE; -methylPREDNISolone SUSP 40MG/ML 1ML VIAL (DEPO MEDROL) As Ordered ONE
== END ==
LOC: M IRPRO 13:31
PROVIDERS: ATTEND Orthopaedic Surgery
DX: M75.22 Bicipital tendinitis, left shoulder (principal)
CPT/HCPCS: 20550; 76942; J3301

== ENCOUNTER → 2022-04-15 | Outpatient (REF) | payer BC ==
[~2022-04-15] MED LIST changes: +ATOR1TAB21; -LIDOCAINE 1% MDV 20ML VIAL As Ordered ONE; +NITR100C2; -TRIAMCINOLONE ACETONIDE SUSP 40 MG/ML VIAL (J3301) As Ordered ONE
== END ==
LOC: M LAB REF 20:32
PROVIDERS: ATTEND Physician Assistant
DX: N39.0 Urinary tract infection, site not specified (principal)

== ENCOUNTER 2022-04-17 16:28 | Emergency (ER) | payer BC ==
[~2022-04-17] VITALS: Ht 152.4 cm; Wt 63.5 kg
[~2022-04-17 16:28] MED LIST changes: -ATOR1TAB21; -NITR100C2
[2022-04-17 16:29] VITALS: BP 157/83
[2022-04-17] MEDS ORDERED: NITR100C2 (16:36)
[2022-04-17] MEDS ORDERED: ATOR1TAB21 (16:36)
== END 2022-04-17 18:24 | disposition left against medical advice (07) ==
LOC: M ED 16:28
DX: Z53.21 Procedure and treatment not carried out due to patient leaving prior to being seen by health care provider (principal)

== ENCOUNTER → 2022-07-03 | Outpatient (REF) | payer BC ==
[~2022-07-03] MED LIST changes: +ATOR1TAB21; +NITR100C2
[2022-07-03 12:07] LABS: PERCENT SATURATION 19.4 % (13.2-45.0)
[2022-07-03 12:38] LABS: FOLATE 7.8 NG/ML
[2022-07-03 15:46] LABS: TOTAL 25(OH) VITAMIN D 23.8 NG/ML (30.0-100.0)
== END ==
LOC: M LAB REF 11:31
PROVIDERS: ATTEND Physician Assistant Medical
DX: Z98.84 Bariatric surgery status (principal)

== ENCOUNTER → 2022-10-18 | Outpatient (REF) | payer BC ==
[2022-10-18 21:25] LABS: APPEARANCE, URINE MANUAL HAZY (CLEAR)
[2022-10-18 21:26] LABS: COLOR, URINE MANUAL AMBER (YELLOW); GLUCOSE, URINE (UA) MANUAL NEGATIVE (NEGATIVE); KETONE, URINE MANUAL OBSCURED mg/dL (NEGATIVE); PH,URINE MAN 5.5 UNITS (5.0 - 7.0); PROTEIN, URINE MANUAL OBSCURED mg/dL (NEGATIVE); UROBILINOGEN, URINE MANUAL OBSCURED mg/dl (NORMAL)
[2022-10-18 21:27] LABS: BILIRUBIN, URINE MANUAL OBSCURED (NEGATIVE); BLOOD URINE MANUAL POSITIVE (NEGATIVE); LEUKOCYTE ESTERASE, URINE MAN POSITIVE (NEGATIVE); NITRITE, URINE MANUAL OBSCURED (NEGATIVE)
[2022-10-18 21:34] LABS: WBC, URINE TNTC /hpf (0-3)
[2022-10-18 21:35] LABS: AMORPHOUS SEDIMENT, URINE SMALL AMOUNT (NEGATIVE); BACTERIA, URINE MOD AMOUNT; HYALINE CAST, URINE NONE SEEN /lpf (0-1); SQUAMOUS EPITHELIAL CELL URINE MOD AMOUNT /hpf (SMALL AMT)
== END ==
LOC: M LAB REF 21:01
PROVIDERS: ATTEND Physician Assistant
DX: N39.0 Urinary tract infection, site not specified (principal)

== ENCOUNTER → 2022-12-30 | Outpatient (REF) | payer BC ==
[2022-12-30 16:32] LABS: APPEARANCE, URINE MANUAL CLEAR (CLEAR); BILIRUBIN, URINE MANUAL OBSCURED (NEGATIVE); BLOOD URINE MANUAL OBSCURED (NEGATIVE); COLOR, URINE MANUAL ORANGE (YELLOW); GLUCOSE, URINE (UA) MANUAL OBSCURED mg/dL (NEGATIVE); KETONE, URINE MANUAL OBSCURED mg/dL (NEGATIVE); LEUKOCYTE ESTERASE, URINE MAN OBSCURED (NEGATIVE); NITRITE, URINE MANUAL OBSCURED (NEGATIVE); PH,URINE MAN OBSCURED UNITS (5.0 - 7.0); PROTEIN, URINE MANUAL OBSCURED mg/dL (NEGATIVE); SPECIFIC GRAVITY,URINE MANUAL 1.026 (1.002-1.035); UROBILINOGEN, URINE MANUAL OBSCURED mg/dl (NORMAL)
[2022-12-30 17:12] LABS: WBC, URINE 30-40 /hpf (0-3)
[2022-12-30 17:13] LABS: BACTERIA, URINE LARGE AMOUNT; SQUAMOUS EPITHELIAL CELL URINE MOD AMOUNT /hpf (SMALL AMT)
== END ==
LOC: M LAB REF 16:17
PROVIDERS: ATTEND Physician Assistant Medical
DX: N39.0 Urinary tract infection, site not specified (principal)

== ENCOUNTER → 2023-03-07 | Outpatient (REF) | payer BC ==
[2023-03-07 15:10] LABS: GC DNA AMPLIFICATION NEGATIVE (NEGATIVE)
== END ==
LOC: M LAB REF 12:50
PROVIDERS: ATTEND Physician Assistant Medical
DX: N39.0 Urinary tract infection, site not specified (principal)

== ENCOUNTER → 2023-04-17 | Outpatient (REF) | payer BC ==
[2023-04-17 21:16] LABS: APPEARANCE, URINE MANUAL CLOUDY (CLEAR); COLOR, URINE MANUAL ORANGE (YELLOW); SPECIFIC GRAVITY,URINE MANUAL 1.025 (1.002-1.035)
[2023-04-17 21:17] LABS: BILIRUBIN, URINE MANUAL OBSCURED (NEGATIVE); BLOOD URINE MANUAL POSITIVE (NEGATIVE); GLUCOSE, URINE (UA) MANUAL OBSCURED mg/dL (NEGATIVE); KETONE, URINE MANUAL OBSCURED mg/dL (NEGATIVE); LEUKOCYTE ESTERASE, URINE MAN OBSCURED (NEGATIVE); NITRITE, URINE MANUAL OBSCURED (NEGATIVE); PROTEIN, URINE MANUAL OBSCURED mg/dL (NEGATIVE); UROBILINOGEN, URINE MANUAL OBSCURED mg/dl (NORMAL)
[2023-04-17 21:27] LABS: BACTERIA, URINE MOD AMOUNT; HYALINE CAST, URINE NONE SEEN /lpf (0-1); MUCUS, URINE SMALL AMOUNT (NEGATIVE); SQUAMOUS EPITHELIAL CELL URINE SMALL AMOUNT /hpf (SMALL AMT); TRANSITIONAL EPI CELLS, URINE SMALL AMOUNT /hpf; WBC, URINE 40-50 /hpf (0-3)
== END ==
LOC: M LAB REF 21:02
PROVIDERS: ATTEND Physician Assistant
DX: N39.0 Urinary tract infection, site not specified (principal)

== ENCOUNTER → 2023-12-16 | Outpatient (REF) | payer BC | LOC: M LAB REF 16:11 | PROVIDERS: ATTEND Physician Assistant Medical | DX: N39.0 Urinary tract infection, site not specified (principal) ==

== ENCOUNTER → 2023-12-18 | Outpatient (CLI) | payer BC | LOC: M RAD 07:05 | PROVIDERS: ATTEND Physician Assistant Medical | DX: R10.11 Right upper quadrant pain (principal); K76.0 Fatty (change of) liver, not elsewhere classified; K80.20 Calculus of gallbladder without cholecystitis without obstruction ==

== ENCOUNTER → 2023-12-24 | Outpatient (CLI) | payer BC | LOC: M WUC 09:16 | PROVIDERS: ATTEND Physician Assistant Medical | DX: M25.521 Pain in right elbow (principal) ==

== ENCOUNTER 2024-05-25 15:00 | Emergency (ER) | payer BC ==
[~2024-05-25] VITALS: Ht 152.4 cm; Wt 74.0 kg
[~2024-05-25 15:00] MED LIST changes: -LISI20TA33 PO
[2024-05-25 17:03] LABS: BASO % 0.6 % (0.0-1.0); EOS # 0.1 10^3/uL (0.0-0.5); EOS % 1.4 % (0.0-3.0); HEMATOCRIT 38.1 % (36.0-47.0); HEMOGLOBIN 12.9 g/dl (12.0-15.5); LYMPH # 1.3 10^3/uL (1.5-5.0); LYMPH % 24.8 % (24.0-44.0); MEAN CORPUSCULAR HEMOGLOBIN 32.3 pg (27.0-33.0); MEAN CORPUSCULAR HGB CONC 33.9 g/dl (32.0-36.5); MEAN CORPUSCULAR VOLUME 95.3 fl (80.0-96.0); MONO # 0.5 10^3/uL (0.0-0.8); MONO % 9.1 % (2.0-8.0); NEUTROPHILS # 3.2 10^3/uL (1.5-8.5); NEUTROPHILS % 63.7 % (36.0-66.0); PLATELET COUNT, AUTOMATED 256 10^3/uL (150-450); WHITE BLOOD COUNT 5.1 10^3/uL (4.0-10.0)
[2024-05-25 17:07] VITALS: TEMP 97.2
[2024-05-25] MEDS: ONDANSETRON 4MG 2ML VIAL IV ONE (17:11)
[2024-05-25] MEDS: ACETAMINOPHEN *IV* 1,000 MG in IV 1 EA IV ONE (17:11)
[2024-05-25] MEDS: NS 500 ML IV ONE (17:11)
[2024-05-25 17:28] LABS: BLOOD UREA NITROGEN 20 MG/DL (9-23); CALCIUM LEVEL 8.8 MG/DL (8.5-10.1); CARBON DIOXIDE LEVEL 28 MMOL/L (20-31); CHLORIDE LEVEL 107 MMOL/L (98-107); CREATININE FOR GFR 0.62 MG/DL (0.55-1.30); GLOMERULAR FILTRATION RATE > 60.0 (>58); GLUCOSE, FASTING 131 MG/DL (60-100); POTASSIUM SERUM 3.8 MMOL/L (3.5-5.1); SODIUM LEVEL 141 MMOL/L (136-145)
[2024-05-25] MEDS: MAG SULF 1GM/100ML (MAG RUN) 1 GM in IV 1 EA IV ONE (17:54)
[2024-05-25] MEDS: diphenhydrAMINE 50MG/ML VIAL IV ONE (18:29)
[2024-05-25 19:42] VITALS: BP 191/93
[2024-05-25] MEDS: LABETALOL 100MG/20ML VIAL IV STA (19:42)
[2024-05-25 19:54] VITALS: BP 159/77; O2SAT 99
[2024-05-25] MEDS ORDERED: LISI20TA33 PO (20:25)
== END 2024-05-25 20:37 | disposition home or self-care (01) ==
LOC: M ED 15:00 → CANBEDREQ 20:23 → M ED 20:37
DX: I10 Essential (primary) hypertension (principal); E78.5 Hyperlipidemia, unspecified; E10.9 Type 1 diabetes mellitus without complications; Z79.4 Long term (current) use of insulin; F41.9 Anxiety disorder, unspecified; Z91.040 Latex allergy status; Z98.84 Bariatric surgery status; Z90.710 Acquired absence of both cervix and uterus; Z79.899 Other long term (current) drug therapy; Z11.52 Encounter for screening for COVID-19
CPT/HCPCS: 80048; 85025; 87486; 87581; 87633; 87798; 96365; 96366; 96367; 96375; 99284; J0131; J1200; J1920; J2405; J3475

== ENCOUNTER → 2024-05-25 | Outpatient (REF) | payer BC ==
[~2024-05-25] MED LIST changes: +BUPR-597 PO; -BUPR300T92 PO; +LISI20TA33 PO
== END ==
LOC: M LAB REF 12:17
PROVIDERS: ATTEND Physician Assistant
DX: R11.2 Nausea with vomiting, unspecified (principal)

== ENCOUNTER → 2024-08-28 | Outpatient (REF) | payer BC ==
[~2024-08-28] MED LIST changes: +LISI20TA33 PO
== END ==
LOC: M LAB REF 16:31
PROVIDERS: ATTEND Physician Assistant
DX: N39.0 Urinary tract infection, site not specified (principal)

== ENCOUNTER → 2024-11-05 | Outpatient (REF) | payer BC | LOC: M LAB REF 18:04 | PROVIDERS: ATTEND Physician Assistant | DX: R30.0 Dysuria (principal) ==

== ENCOUNTER → 2024-12-23 | Outpatient (REF) | payer BC ==
[2024-12-23 14:06] LABS: PERCENT SATURATION 38.7 % (13.2-45.0); PHOSPHORUS LEVEL 4.1 MG/DL (2.5-4.9)
[2024-12-23 14:10] LABS: FERRITIN 102.2 NG/ML (7.3-270.7)
[2024-12-23 14:11] LABS: FOLATE 22.2 NG/ML (>5.4); TOTAL 25(OH) VITAMIN D 63.4 NG/ML (20.0-100.0)
[2024-12-24 15:08] LABS: ANA PATTERN Nuclear, Homogeneous (NEGATIVE); ANA SCREEN, IFA POSITIVE (NEGATIVE); ANA TITER 1:40 titer (<1:40)
[2024-12-27 05:03] LABS: VITAMIN A, RETINOL LEVEL 57 mcg/dL (38-98)
== END ==
LOC: M LAB REF 11:56
PROVIDERS: ATTEND Physician Assistant Medical
DX: K76.0 Fatty (change of) liver, not elsewhere classified (principal); Z98.84 Bariatric surgery status

== ENCOUNTER → 2025-01-28 | Outpatient (REF) | payer BC ==
[2025-01-28 21:25] LABS: APPEARANCE, URINE HAZY (CLEAR); BACTERIA, URINE AUTO NEGATIVE (NEGATIVE); BILIRUBIN, URINE AUTO NEGATIVE (NEGATIVE); BLOOD, URINE BLOOD NEGATIVE (NEGATIVE); COLOR, URINE YELLOW (YELLOW); GLUCOSE, URINE (UA) AUTO 3+ mg/dL (NEGATIVE); KETONE, URINE AUTO 1+ mg/dL (NEGATIVE); LEUKOCYTE ESTERASE, URINE AUTO TRACE (NEGATIVE); MUCUS, URINE SMALL (NEGATIVE); NITRITE, URINE AUTO NEGATIVE (NEGATIVE); PROTEIN, URINE AUTO 1+ mg/dL (NEGATIVE); RBC, URINE AUTO 0 /HPF (0-3); SPECIFIC GRAVITY URINE AUTO 1.026 (1.002-1.035); SQUAMOUS EPITHELIAL CELL UR AU 2 /HPF (0-6); UROBILINOGEN, URINE AUTO 0.2 mg/dL (0.0-2.0); WBC, URINE AUTO 35 /HPF (0-3)
== END ==
LOC: M LAB REF 21:07
PROVIDERS: ATTEND Physician Assistant
DX: N39.0 Urinary tract infection, site not specified (principal)